=== PATIENT | female | born 1945 | race Caucasian/White ===

== ENCOUNTER 2017-11-28 09:41 | Inpatient (IN) | payer OTHER ==
[~2017-11-28] VITALS: Ht 160 cm; Wt 91.0 kg
[2017-11-28] MEDS ORDERED: ONDANSETRON INJ 2 MG/ML 2 ML VIAL IV STA (09:49)
[2017-11-28] MEDS ORDERED: HYDROmorphone INJ 1 MG/ML SYR IV STA (09:49)
[2017-11-28 09:56] LABS: HEMATOCRIT 38.2 % (37-47); HEMOGLOBIN 13.3 g/dL (12.0-16.0); MEAN CORPUSCULAR HEMOGLOBIN 30.6 pg (25-34); MEAN CORPUSCULAR HGB CONC 34.8 g/dl (32-36); MEAN PLATELET VOLUME 11.7 fL (7.4-10.4); PLATELET COUNT 146 K/uL (130-400); RED CELL DISTRIBUTION WIDTH CV 12.4 % (11.5-14.5); RED CELL DISTRIBUTION WIDTH SD 40.1 fL (36.4-46.3); WHITE BLOOD COUNT 6.22 K/uL (4.8-10.8)
[2017-11-28] MEDS ORDERED: HYDROmorphone INJ 0.5 MG/0.5 ML SYR ONE (09:56)
[2017-11-28 10:28] LABS: ALBUMIN 3.6 gm/dl (3.4-5.0); CALCIUM 9.4 mg/dl (8.5-10.1); CREATININE 0.98 mg/dl (0.60-1.20)
--- NOTE | 2017-11-28 10:36 | DIAGNOSTIC IMAGING REPORT ---
CT SCAN OF THE ABDOMEN AND PELVIS WITHOUT IV CONTRAST CLINICAL HISTORY: Right-sided abdominal pain. COMPARISON STUDY: No priors. TECHNIQUE: CT scan of the abdomen and pelvis is performed from the lung bases to the proximal femora. Images are reviewed in the axial, sagittal, and coronal planes. IV contrast was not administered for this examination. A dose lowering technique was utilized adhering to the principles of ALARA. CT DOSE: 1575.58 mGy.cm FINDINGS: Lung bases: The heart is normal in size and without pericardial effusion. The lung bases are clear noting dependent scarring/atelectasis. There is a small hiatal hernia. Liver: The unenhanced liver is cirrhotic in morphology and heterogeneous in attenuation. There is hypertrophy of the left lobe and caudate as well as nodularity of the hepatic surface contour. There is no intrahepatic biliary ductal dilatation. Gallbladder: Unremarkable. Spleen: Normal in size and attenuation. Pancreas: The unenhanced pancreas is atrophic and grossly unremarkable. Adrenal glands: Unremarkable. Kidneys: The unenhanced kidneys demonstrate cortical atrophy. There is a 5 mm obstructing calculus at the right vesicoureteral junction seen on image number #365. This causes moderate right hydroureteronephrosis. The right kidney is mildly edematous. There is associated right-sided perinephric and periureteric stranding as well as trace right-sided perinephric fluid. No additional calculi are identified in the right kidney. No left renal calculi are identified and there is no left-sided hydronephrosis. There is no evidence of contour deforming renal mass lesion. Abdominal vasculature: The abdominal aorta is normal in course and caliber noting advanced atherosclerotic calcification. Bowel: There is moderate sigmoid diverticulosis without CT evidence of acute diverticulitis. No bowel obstruction is seen. The appendix is not identified and reported surgically absent. Peritoneum: There is no intraperitoneal free air or abdominal ascites. A small volume of right-sided retroperitoneal fluid is noted and likely related to forniceal rupture. There is a small fat-containing umbilical hernia. Lymphadenopathy: None. Pelvic viscera: The bladder is normal as visualized. The uterus is surgically absent. No adnexal lesion is seen. Skeletal structures: The skeletal structures are osteopenic. There is moderate to advanced lumbosacral spondylosis and scoliosis. No lytic or blastic lesions are seen. IMPRESSION: 1. There is a 5 mm obstructing calculus at the right vesicoureteral junction. This causes moderate right-sided hydroureteronephrosis. 2. No additional calculi are identified in either kidney. 3. Cirrhotic liver morphology. 4. Retroperitoneal fluid is likely related to forniceal rupture. 5. Moderate sigmoid diverticulosis without CT evidence of acute diverticulitis. 6. Additional findings as above. Electronically signed by: Tato Jose M.D. 11/28/2017 10:34 AM Dictated Date/Time: 11/28/2017 10:27 AM
[2017-11-28] MEDS ORDERED: METO100T44 PO (10:53)
[2017-11-28] MEDS ORDERED: MELO-83 PO (10:53)
[2017-11-28] MEDS ORDERED: CHOL20007 PO (10:54)
[2017-11-28] MEDS ORDERED: SUMA100T16 PO (10:54)
[2017-11-28] MEDS ORDERED: AMT10 PO (10:54)
[2017-11-28] MEDS ORDERED: LUTE1CAP PO (10:54)
[2017-11-28] MEDS ORDERED: MECL-91 PO (10:54)
[2017-11-28] MEDS ORDERED: ASPI81TA28 PO (10:54)
[2017-11-28] MEDS ORDERED: AMLO-110 PO (10:54)
[2017-11-28] MEDS ORDERED: LSN/2025 PO (10:54)
[2017-11-28] MEDS ORDERED: OMEG10007 PO (10:54)
[2017-11-28] MEDS ORDERED: ASCO500T16 PO (10:54)
[2017-11-28] MEDS ORDERED: NXM/40 PO (10:54)
[2017-11-28] MEDS ORDERED: MULTCHW PO (10:54)
[2017-11-28] MEDS ORDERED: CALC600T PO (10:54)
[2017-11-28] MEDS ORDERED: PROCHLORPERAZINE 5 MG/ML 2 ML VIAL IV STA (11:07)
[2017-11-28] MEDS ORDERED: SODIUM CHLORIDE 0.9% 500ML 500 ML IV STA (11:07)
[2017-11-28] MEDS ORDERED: POTASSIUM CHLORIDE 10 MEQ / 100ML WTR IV STA (11:12)
[2017-11-28] MEDS ORDERED: POTASSIUM CHLORIDE 10 MEQ TABCR PO STA (12:57)
[2017-11-28] MEDS ORDERED: MoRPHine SULFATE 2 MG/ML CARP IV PRN (13:00)
[2017-11-28] MEDS ORDERED: ONDANSETRON INJ 2 MG/ML 2 ML VIAL IV PRN (13:00)
[2017-11-28] MEDS ORDERED: MECLIZINE HCL 25 MG TAB PO PRN (13:00)
[2017-11-28] MEDS ORDERED: SUMATRIPTAN SUCC TAB 100 MG TAB PO PRN (13:00)
[2017-11-28] MEDS ORDERED: TAMSULOSIN HCL 0.4 MG CAP PO ONE (13:00)
[2017-11-28] MEDS ORDERED: METOPROLOL SUCC 50MG EXT REL TAB PO STA (13:04)
[2017-11-28] MEDS ORDERED: AMLODIPINE BESYLATE 5 MG TAB PO ONE (13:15)
--- NOTE | 2017-11-28 13:15 | History and Physical ---
History & Physical Date & Time of Service: Nov 28, 2017 at 13:15 Chief Complaint: R-Flank Pain Primary Care Physician: Buck Contreras M.D. History of Present Illness Source: patient, family Patient is a 72 yr female with PMH of HTN, HLP, BPPV, Migraine GERD and other problems presents with history of right flank pain since 1 week duration which has become persistent and progressively worsened since this morning. She reports flank pain to be sharp, 10/10 intensity, radiates to right groin, associated with nausea, vomiting with no aggravating, relieving factors. Also reports that she could not pass urine while in ED and required straight catheterization. CT abdomen showed 5 mm obstructing calculus at the right vesicoureteral junction causing moderate right-sided hydroureteronephrosis. Denies any history of chest pain, SOB, dizziness, fever, chills, headache, hematuria, or history of having kidney stones in the past. Past Medical/Surgical History Medical Problems: (1) Renal colic on right side Past Surgical History: Hysterectomy Tonsillectomy Family History Father: CAD Social History Smoking Status: Never Smoker Alcohol Use: none Drug Use: none Allergies Coded Allergies: No Known Allergies (Unverified , 11/28/17) Home Medications Scheduled Amitriptyline HCl (Amitriptyline HCl), 1 TAB PO DAILY Amlodipine (Norvasc), 5 MG PO DAILY Ascorbic Acid (Ascorbic Acid), 500 MG PO DAILY Aspirin (Aspirin Ec), 81 MG PO DAILY Calcium Carbonate (Calcium 600), 2 TAB PO DAILY Cholecalciferol (Vitamin D3), 6,000 INTER.UNIT PO DAILY Esomeprazole Magnesium (Nexium), 40 MG PO DAILY Fish Oil ([place]-3), 1 CAP PO DAILY Hctz/Lisinopril (Zestoretic 20MG/25MG), 2 TAB PO DAILY Lutein-Zeaxanthin (Ocuvite Lutein 25 25-5 mg), 1 CAP PO DAILY Meloxicam (Meloxicam), 1 TAB PO DAILY Metoprolol Succ (Toprol Xl) (Toprol-Xl ), 100 MG PO DAILY Multiple Vitamins W/ Minerals (Centrum Silver), 1 TAB PO DAILY Sumatriptan Succinate (Imitrex), 100 MG PO PRN Scheduled PRN Meclizine HCl (Meclizine 25), 1 TAB PO UD PRN for Dizziness or Vertigo Review of Systems See HPI for pertinent positives & negatives. A total of 10 systems reviewed and were otherwise negative. Physical Exam Vital Signs Date Time Temp Pulse Resp B/P (MAP) Pulse Ox O2 Delivery O2 Flow Rate FiO2 11/28/17 11:30 75 17 152/69 97 Nasal Cannula 3.0 11/28/17 11:05 62 11/28/17 10:39 97 Nasal Cannula 3.0 11/28/17 10:37 62 22 174/91 86 Room Air 11/28/17 09:47 66 22 196/91 100 Room Air General Appearance: no apparent distress, + obese Head: normocephalic, atraumatic Eyes: normal inspection, PERRL, EOMI, sclerae normal ENT: normal ENT inspection, hearing grossly normal Neck: supple, trachea midline Respiratory/Chest: chest non-tender, lungs clear, normal breath sounds, no respiratory distress, no accessory muscle use Cardiovascular: regular rate, rhythm, no edema, no murmur Abdomen/GI: normal bowel sounds, soft, + tenderness (RLQ and groin), + pertinent finding (NO CVA tenderness) Back: normal inspection Extremities/Musculoskelatal: normal inspection, no pedal edema 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4 11.5-14.5 % Neutrophils % (Manual) 40.1 % Lymphocytes % (Manual) 31.6 % Variant Lymphocytes % (manual) 15.4 % Monocytes % (Manual) 12.0 % Eosinophils % (Manual) 0.9 % Neutrophils # (Manual) 2.49 1.4-6.5 K/uL Total Absolute Neutrophils 2.49 1.4-6.5 K/uL Lymphocytes # (Manual) 1.97 1.2-3.4 K/uL Absolute Variant Lymphocytes 0.96 K/uL Total Absolute Lymphocytes 2.92 1.2-3.4 K/uL Monocytes # (Manual) 0.75 0.11-0.59 K/uL Eosinophils # (Manual) 0.06 0-0.5 K/uL Red Blood Cell Morphology Unremarkable Sodium Level 141 136-145 mmol/L Potassium Level 3.0 3.5-5.1 mmol/L Chloride Level 105 98-107 mmol/L Carbon Dioxide Level 30 21-32 mmol/L Anion Gap 6.0 3-11 mmol/L Blood Urea Nitrogen 22 7-18 mg/dl Creatinine 0.98 0.60-1.20 mg/dl Est Creatinine Clear Calc Drug Dose 57.2 ml/min Estimated GFR () 67.7 Estimated GFR (Non- 58.4 BUN/Creatinine Ratio 22.0 10-20 Random Glucose 116 70-99 mg/dl Calcium Level 9.4 8.5-10.1 mg/dl Total Bilirubin 0.5 0.2-1 mg/dl Direct Bilirubin 0.1 0-0.2 mg/dl Aspartate Amino Transf (AST/SGOT) 55 15-37 U/L Alanine Aminotransferase (ALT/SGPT) 51 12-78 U/L Alkaline Phosphatase 87 45-117 U/L Total Protein 8.0 6.4-8.2 gm/dl Albumin 3.6 3.4-5.0 gm/dl Lipase 245 73-393 U/L Urine Color YELLOW Urine Appearance CLEAR CLEAR Urine pH >= 9.0 4.5-7.5 Urine Specific [place] 1.017 1.000-1.030 Urine Protein NEG NEG Urine Glucose (UA) NEG NEG Urine Ketones NEG NEG Urine Occult Blood NEG NEG Urine Nitrite NEG NEG Urine Bilirubin NEG NEG Urine Urobilinogen NEG NEG Urine Leukocyte Esterase TRACE NEG Urine WBC (Auto) 1-5 0-5 /hpf Urine RBC (Auto) 0-4 0-4 /hpf Urine Hyaline Casts (Auto) 1-5 0-5 /lpf Urine Epithelial Cells (Auto) 10-20 0-5 /lpf Urine Bacteria (Auto) NEG NEG Urine Renal Epithelial Cells 0-5 /lpf Microbiology Results 11/28/17 MRSA DNA Surveillance Screen, Received Pending 11/28/17 Urine Culture, Received Pending Diagnostic Radiology CT ABD: 1. There is a 5 mm obstructing calculus at the right vesicoureteral junction. This causes moderate right-sided hydroureteronephrosis. 2. No additional calculi are identified in either kidney. 3. Cirrhotic liver morphology. 4. Retroperitoneal fluid is likely related to forniceal rupture. 5. Moderate sigmoid diverticulosis without CT evidence of acute diverticulitis. 6. Additional findings as above. Impression Assessment and Plan Renal Colic: Obstructive Uropathy: CT abdomen showed: 5 mm obstructing calculus at the right vesicoureteral junction. moderate right-sided hydroureteronephrosis. No signs of Sepsis IV fluids UA normal, No indication for antibiotics Start on flomax Discussed with Urology: conservative management Consider Urology if necessary Strain Urine Bladder scan PRN Pain control Hypokalemia: Secondary to GI loses Replace and monitor HTN: Elevated 2/2 to pain and patient missed her meds today Resume home meds monitor BPPV: Meclizine PRN Migraine: Stable GERD: Continue PPI DVT Px: SCDs Code Status: Full Code Resuscitation Status VTE Prophylaxis Will order VTE Prophylaxis: Yes
[2017-11-28 13:30] VITALS: O2SAT 97; Ht 160 cm; Wt 91.0 kg
--- NOTE | 2017-11-28 13:38 | EMERGENCY ROOM VISIT NOTE ---
History Report prepared by Devin: Gregoria Thorne Under the Supervision of: Dr. Monster Adkins M.D. First contact with patient: 09:42 Chief Complaint: FLANK PAIN Stated Complaint: R-FLANK PAIN History of Present Illness The patient is a 72 year old female who presents to the Emergency Room with complaints of persistent right flank pain starting when she awoke this morning. She did not have any pain yesterday. She presents to the ED by EMS. She received morphine and Zofran in route to no significant relief. The pain started around her right waist and has moved into her right groin. She describes the pain as sharp. She denies any fever, vomiting, chest pain, SOB, problems urinating, hematuria, or diarrhea. She denies any history of kidney stones. She has been healthy up until today. Source of History: patient, family, nursing staff Onset: this morning Position: other (right flank) Symptom Intensity: severe Quality: sharp Timing: other (persistent) Associated Symptoms: No fevers, No chest pain, No SOB, No vomiting, No diarrhea, No urinary symptoms Note: Pt reports right groin pain. Review of Systems See HPI for pertinent positives & negatives. A total of 10 systems reviewed and were otherwise negative. Past Medical & Surgical Medical Problems: (1) Renal colic on right side No history of kidney stones. Family History No pertinent family history stated. Social History Marital Status: Occupation Status: retired Current/Historical Medications Scheduled Amitriptyline HCl (Amitriptyline HCl), 1 TAB PO DAILY Amlodipine (Norvasc), 5 MG PO DAILY Ascorbic Acid (Ascorbic Acid), 500 MG PO DAILY Aspirin (Aspirin Ec), 81 MG PO DAILY Calcium Carbonate (Calcium 600), 2 TAB PO DAILY Cholecalciferol (Vitamin D3), 6,000 INTER.UNIT PO DAILY Esomeprazole Magnesium (Nexium), 40 MG PO DAILY Fish Oil ([place]-3), 1 CAP PO DAILY Hctz/Lisinopril (Zestoretic 20MG/25MG), 2 TAB PO DAILY Lutein-Zeaxanthin (Ocuvite Lutein 25 25-5 mg), 1 CAP PO DAILY Meloxicam (Meloxicam), 1 TAB PO DAILY Metoprolol Succ (Toprol Xl) (Toprol-Xl ), 100 MG PO DAILY Multiple Vitamins W/ Minerals (Centrum Silver), 1 TAB PO DAILY Sumatriptan Succinate (Imitrex), 100 MG PO PRN Scheduled PRN Meclizine HCl (Meclizine 25), 1 TAB PO UD PRN for Dizziness or Vertigo Allergies Coded Allergies: No Known Allergies (Unverified , 11/28/17) Physical Exam Vital Signs Date Time Temp Pulse Resp B/P (MAP) Pulse Ox O2 Delivery O2 Flow Rate FiO2 11/28/17 11:30 75 17 152/69 97 Nasal Cannula 3.0 11/28/17 11:05 62 11/28/17 10:39 97 Nasal Cannula 3.0 11/28/17 10:37 62 22 174/91 86 Room Air 11/28/17 09:47 66 22 196/91 100 Room Air Physical Exam The patient is in obvious discomfort. Constitutional: Vital signs reviewed. Eyes: Pupils are equal round reactive to light. Conjunctiva are noninjected. ENT: Pharynx is clear without erythema or exudate. Mucous membranes are dry. Neck supple without meningeal signs. Respiratory: Clear to auscultation bilaterally. Breath sounds are equal bilaterally. Cardiovascular: Regular rate and rhythm. No rubs or gallops. GI: Soft, nondistended. Right sided abdominal tenderness. No guarding. Bowel sounds are present. Musculoskeletal: No peripheral edema. No lower extremity tenderness. Integumentary: No cyanosis. Neurological: The patient is awake and alert. No focal deficits. Psychiatric: Normal affect. Medical Decision & Procedures ER Provider Diagnostic Interpretation: Radiology results as stated below per my review and the radiologist's interpretation: CT SCAN OF THE ABDOMEN AND PELVIS WITHOUT IV CONTRAST CLINICAL HISTORY: Right-sided abdominal pain. COMPARISON STUDY: No priors. TECHNIQUE: CT scan of the abdomen and pelvis is performed from the lung bases to the proximal femora. Images are reviewed in the axial, sagittal, and coronal planes. IV contrast was not administered for this examination. A dose lowering technique was utilized adhering to the principles of ALARA. CT DOSE: 1575.58 mGy.cm FINDINGS: Lung bases: The heart is normal in size and without pericardial effusion. The lung bases are clear noting dependent scarring/atelectasis. There is a small hiatal hernia. Liver: The unenhanced liver is cirrhotic in morphology and heterogeneous in attenuation. There is hypertrophy of the left lobe and caudate as well as nodularity of the hepatic surface contour. There is no intrahepatic biliary ductal dilatation. Gallbladder: Unremarkable. Spleen: Normal in size and attenuation. Pancreas: The unenhanced pancreas is atrophic and grossly unremarkable. Adrenal glands: Unremarkable. Kidneys: The unenhanced kidneys demonstrate cortical atrophy. There is a 5 mm obstructing calculus at the right vesicoureteral junction seen on image number #365. This causes moderate right hydroureteronephrosis. The right kidney is mildly edematous. There is associated right-sided perinephric and periureteric stranding as well as trace right-sided perinephric fluid. No additional calculi are identified in the right kidney. No left renal calculi are identified and there is no left-sided hydronephrosis. There is no evidence of contour deforming renal mass lesion. Abdominal vasculature: The abdominal aorta is normal in course and caliber noting advanced atherosclerotic calcification. Bowel: There is moderate sigmoid diverticulosis without CT evidence of acute diverticulitis. No bowel obstruction is seen. The appendix is not identified and reported surgically absent. Peritoneum: There is no intraperitoneal free air or abdominal ascites. A small volume of right-sided retroperitoneal fluid is noted and likely related to forniceal rupture. There is a small fat-containing umbilical hernia. Lymphadenopathy: None. Pelvic viscera: The bladder is normal as visualized. The uterus is surgically absent. No adnexal lesion is seen. Skeletal structures: The skeletal structures are osteopenic. There is moderate to advanced lumbosacral spondylosis and scoliosis. No lytic or blastic lesions are seen. IMPRESSION: 1. There is a 5 mm obstructing calculus at the right vesicoureteral junction. This causes moderate right-sided hydroureteronephrosis. 2. No additional calculi are identified in either kidney. 3. Cirrhotic liver morphology. 4. Retroperitoneal fluid is likely related to forniceal rupture. 5. Moderate sigmoid diverticulosis without CT evidence of acute diverticulitis. 6. Additional findings as above. Electronically signed by: Tato Jose M.D. 11/28/2017 10:34 AM Dictated Date/Time: 11/28/2017 10:27 AM Laboratory Results 11/28/17 09:30 Red Blood Count 4.34, Mean Corpuscular Volume 88.0, Mean Corpuscular Hemoglobin 30.6, Mean Corpuscular Hemoglobin Concent 34.8, Mean Platelet Volume 11.7 11/28/17 09:30 Test 11/28/17 09:30 11/28/17 11:20 White Blood Count 6.22 K/uL (4.8-10.8) Red Blood Count 4.34 M/uL (4.2-5.4) Hemoglobin 13.3 g/dL (12.0-16.0) Hematocrit 38.2 % (37-47) Mean Corpuscular Volume 88.0 fL (80-100) Mean Corpuscular Hemoglobin 30.6 pg (25-34) Mean Corpuscular Hemoglobin Concent 34.8 g/dl (32-36) Platelet Count 146 K/uL (130-400) Mean Platelet Volume 11.7 fL (7.4-10.4) RDW Standard Deviation 40.1 fL (36.4-46.3) RDW Coefficient of Variation 12.4 % (11.5-14.5) Neutrophils % (Manual) 40.1 % Lymphocytes % (Manual) 31.6 % Variant Lymphocytes % (manual) 15.4 % Monocytes % (Manual) 12.0 % Eosinophils % (Manual) 0.9 % Neutrophils # (Manual) 2.49 K/uL (1.4-6.5) Total Absolute Neutrophils 2.49 K/uL (1.4-6.5) Lymphocytes # (Manual) 1.97 K/uL (1.2-3.4) Absolute Variant Lymphocytes 0.96 K/uL Total Absolute Lymphocytes 2.92 K/uL (1.2-3.4) Monocytes # (Manual) 0.75 K/uL (0.11-0.59) Eosinophils # (Manual) 0.06 K/uL (0-0.5) Red Blood Cell Morphology Unremarkable Anion Gap 6.0 mmol/L (3-11) Est Creatinine Clear Calc Drug Dose 57.2 ml/min Estimated GFR () 67.7 Estimated GFR (Non- 58.4 BUN/Creatinine Ratio 22.0 (10-20) Calcium Level 9.4 mg/dl (8.5-10.1) Total Bilirubin 0.5 mg/dl (0.2-1) Direct Bilirubin 0.1 mg/dl (0-0.2) Aspartate Amino Transf (AST/SGOT) 55 U/L (15-37) Alanine Aminotransferase (ALT/SGPT) 51 U/L (12-78) Alkaline Phosphatase 87 U/L (45-117) Total Protein 8.0 gm/dl (6.4-8.2) Albumin 3.6 gm/dl (3.4-5.0) Lipase 245 U/L (73-393) Urine Color YELLOW Urine Appearance CLEAR (CLEAR) Urine pH >= 9.0 (4.5-7.5) Urine Specific [place] 1.017 (1.000-1.030) Urine Protein NEG (NEG) Urine Glucose (UA) NEG (NEG) Urine Ketones NEG (NEG) Urine Occult Blood NEG (NEG) Urine Nitrite NEG (NEG) Urine Bilirubin NEG (NEG) Urine Urobilinogen NEG (NEG) Urine Leukocyte Esterase TRACE (NEG) Urine WBC (Auto) 1-5 /hpf (0-5) Urine RBC (Auto) 0-4 /hpf (0-4) Urine Hyaline Casts (Auto) 1-5 /lpf (0-5) Urine Epithelial Cells (Auto) 10-20 /lpf (0-5) Urine Bacteria (Auto) NEG (NEG) Urine Renal Epithelial Cells /lpf (0-5) Laboratory results as reviewed by me. Medications Administered Medications (Trade) Dose Ordered Sig/Isabel Route Start Time Stop Time Status Last Admin Dose Admin Ondansetron HCl (Zofran Inj) 4 mg NOW STAT IV 11/28/17 09:49 11/28/17 09:50 DC 11/28/17 09:58 4 MG Hydromorphone HCl (Dilaudid Inj) 0.5 mg STK-MED ONCE .ROUTE 11/28/17 09:56 11/28/17 09:57 DC 11/28/17 09:59 0.5 MG Prochlorperazine Edisylate (Compazine Inj) 5 mg NOW STAT IV 11/28/17 11:07 11/28/17 11:10 DC 11/28/17 11:27 5 MG Sodium Chloride 500 ml @ 999 mls/hr Q31M STAT IV 11/28/17 11:07 11/28/17 11:37 DC 11/28/17 11:29 999 MLS/HR Potassium Chloride (Kcl 10 Meq / Wtr) 10 meq NOW STAT IV 11/28/17 11:12 11/28/17 11:13 DC 11/28/17 11:29 10 MEQ Tamsulosin HCl (Flomax Cap) 0.4 mg NOW ONCE PO 11/28/17 13:00 11/28/17 13:14 DC 11/28/17 13:32 0.4 MG Metoprolol Succinate (Toprol Xl Tab) 100 mg NOW STAT PO 11/28/17 13:04 11/28/17 13:14 DC 11/28/17 13:32 100 MG Amlodipine Besylate (Norvasc Tab) 5 mg NOW ONCE PO 11/28/17 13:15 11/28/17 13:16 DC 11/28/17 13:32 5 MG ED Course 0945: The patient was evaluated in room A3. A complete history and physical exam was performed. 0949: Dilaudid Inj 0.5 mg IV, Zofran Inj 4 mg IV. 1104: I reevaluated the patient. She said that she is feeling better, but then vomited. She agreed to a urine cath. 1107: NSS 500 ml @ 999 mls/hr IV, Compazine Inj 5 mg IV. 1112: Potassium Chloride 10 meq IV. 1134: I reevaluated the patient. She is feeling better. 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 I discussed the results with her. She verbalized agreement of the treatment plan. She will be evaluated for further management. 1229: I spoke with Dr. Castaneda of [facility] Hospitalist service. We discussed the patient and her results. The patient will be further evaluated by him. Medical Decision This is a 72-year-old female presents with right-sided flank pain. Differential diagnosis includes renal colic, obstructive uropathy, UTI, pyelonephritis, appendicitis. I did perform a limited focused review of portions of the patient's old chart on the electronic medical record. The patient has had no recent pertinent visits to this hospital. I did evaluate the patient as noted above. I did treat the patient with Dilaudid 0.5 mg IV and Zofran 4 mg IV. She had received morphine and Zofran prior to arrival without any significant relief. I did order and personally review the patient's urinalysis as described above. I did order and review the patient's blood work as noted in the electronic medical record. She has hypokalemia. I did treat her with KCl IV. She is unable to tolerate p.o. She did vomit again and so I did give her Compazine IV. I did order a CT of the abdomen and pelvis. I did review the images myself as well as the radiology report as described above. She does have a right obstructive stone with signs of forniceal rupture. I did discuss the test results with the patient and her family. She is feeling better at this time. I did recommend hospitalization for further care and evaluation. I did discuss case with the hospitalist and case loader operator. Medication Reconcilliation Current Medication List: was personally reviewed by me Blood Pressure Screening Patient's blood pressure: Elevated blood pressure Blood pressure disposition: Referred to PCP Consults Time Called: 1228 Consulting Physician: Dr. Castaneda [facility] hospitalist Returned Call: 1229 I spoke with him. We discussed the patient and her results. The patient will be further evaluated by him. Impression Primary Impression: Renal colic Additional Impressions: Intractable vomiting Obstructive uropathy Scribe Attestation The scribe's documentation has been prepared under my direct and personally reviewed by me in its entirety. I confirm that the note above accurately reflects all work, treatment, procedures, and medical decision making performed by me. Departure Information Dispostion Being Evaluated By Hospitalist Patient Instructions My [facility] Problem Qualifiers Additional Impressions: Intractable vomiting Vomiting type: unspecified Nausea presence: with nausea Qualified Codes: R11.2 - Nausea with vomiting, unspecified
[2017-11-28] MEDS ORDERED: NSS + 20MEQ KCL 1000ML 1,000 ML IV SCH (14:30)
[2017-11-28] MEDS ORDERED: IV FLUIDS COMPLETED PRN (14:30)
[2017-11-28 14:40] VITALS: BP 127/74; PULSE 61; TEMP 36.3; O2SAT 95
[2017-11-28] MEDS: ACETAMINOPHEN 325 MG TAB PO PRN (21:55)
[2017-11-28] MEDS ORDERED: NURSING VERBAL MED ORDER ONE (22:00)
[2017-11-28] MEDS ORDERED: AMITRIPTYLINE HCL 10 MG TAB PO SCH (22:30)
[2017-11-28 23:11] VITALS: BP 121/71; PULSE 69; TEMP 36.9; O2SAT 93
[2017-11-28 23:30] VITALS: O2SAT 93
[2017-11-29 07:02] LABS: HEMATOCRIT 35.9 % (37-47); HEMOGLOBIN 11.7 g/dL (12.0-16.0); MEAN CELL VOLUME 89.8 fL (80-100); MEAN CORPUSCULAR HEMOGLOBIN 29.3 pg (25-34); MEAN CORPUSCULAR HGB CONC 32.6 g/dl (32-36); MEAN PLATELET VOLUME 11.6 fL (7.4-10.4); PLATELET COUNT 117 K/uL (130-400); RED CELL DISTRIBUTION WIDTH CV 12.9 % (11.5-14.5); RED CELL DISTRIBUTION WIDTH SD 42.7 fL (36.4-46.3); WHITE BLOOD COUNT 5.34 K/uL (4.8-10.8)
[2017-11-29 07:03] VITALS: BP 115/74; PULSE 65; TEMP 36.6; O2SAT 95
[2017-11-29] MEDS: ACETAMINOPHEN 325 MG TAB PO PRN ×2 (07:07→14:21)
[2017-11-29 07:34] LABS: CALCIUM 8.6 mg/dl (8.5-10.1); CREATININE 0.87 mg/dl (0.60-1.20); POTASSIUM 4.1 mmol/L (3.5-5.1)
[2017-11-29] MEDS ORDERED: METOPROLOL SUCC 50MG EXT REL TAB PO SCH (09:00)
[2017-11-29] MEDS ORDERED: AMLODIPINE BESYLATE 5 MG TAB PO SCH (09:00)
[2017-11-29] MEDS ORDERED: AMITRIPTYLINE HCL 10 MG TAB PO SCH (09:00)
[2017-11-29] MEDS ORDERED: LISINOPRIL 20 MG TAB PO SCH (09:00)
[2017-11-29] MEDS ORDERED: TAMSULOSIN HCL 0.4 MG CAP PO SCH (09:00)
[2017-11-29] MEDS ORDERED: PANTOprazole SOD 40 MG TAB PO SCH (09:00)
[2017-11-29 10:09] VITALS: O2SAT 95
[2017-11-29] MEDS ORDERED: NURSING VERBAL MED ORDER ONE (10:45)
[2017-11-29 14:00] VITALS: BP 115/74; PULSE 65; TEMP 36.6; O2SAT 95
--- NOTE | 2017-11-29 14:00 | Discharge Instructions ---
Discharge Instructions Date of Service Nov 29, 2017. Admission Reason for Admission: Renal Colic On Right Side Discharge Discharge Diagnosis / Problem: right renal colic-resolved Discharge Goals Goal(s): Decrease discomfort, Improve function Activity Recommendations Activity Limitations: resume your previous activity . Instructions / Follow-Up Instructions / Follow-Up FOLLOWUP WITH FAMILY DOCTOR ON November AT 10:45AM UROLOGY REFERRAL PER FAMILY DOCTOR. PLEASE AVOID MELOXICAM OR ANY OTHER NSAID'S LIKE IBUPROFEN, ALEVE OR MOTRIN FOR CUSTODIAL USE THEY CAN CAUSE GASTRIC ULCERS, KIDNEY FAILURE OR HEART ATTACKS Current Hospital Diet Patient's current hospital diet: AHA Diet (Heart Healthy) Discharge Diet Recommended Diet: AHA Diet (Heart Healthy) Pending Studies Studies pending at discharge: yes List of pending studies: [facility] ANALYSIS Medical Emergencies . Who to Call and When: Medical Emergencies: If at any time you feel your situation is an emergency, please call 911 immediately. . Non-Emergent Contact Non-Emergency issues call your: Primary Care Provider . . "Provider Documentation" section prepared by [employer]. .
--- NOTE | 2017-11-29 14:34 | Progress Note ---
Internal Med Progress Note Date of Service: Nov 29, 2017. Provider Documentation: SUBJECTIVE: passed renal stone yesterday denies any pain no hematuria no fevers no chest pain or sob or nausea ok for discharge OBJECTIVE: Vital Signs-as noted below Exam: General-alert and oriented. ENT-Normal hearing Neck-no neck masses Lungs-cta b/l no wheezing no crackles present Heart-S1 and S2 heard regular rate and rhythm no murmurs Abdomen-Soft bowel sounds present non tender no distension Extremities-no edema no erythema Neuro-alert and awake moves extremities Lab data as noted below. ASSESSMENT & PLAN: Renal Colic: Obstructive Uropathy: CT abdomen showed: 5 mm obstructing calculus at the right vesicoureteral junction. moderate right-sided hydroureteronephrosis. Start on flomax Admitting doctor Discussed with Urology: conservative management patient passed stone and it was sent for analysis currently asymptomatic d/c to followup with pcp urology referral as per pcp Hypokalemia: replacesd HTN: home meds stable BPPV: Meclizine PRN Migraine: Stable GERD: Continue PPI discharged home Vital Signs: Date Time Temp Pulse Resp B/P (MAP) Pulse Ox O2 Delivery O2 Flow Rate FiO2 11/29/17 14:00 36.6 65 17 95 Room Air 11/29/17 10:09 95 Room Air 11/29/17 07:30 Room Air 11/29/17 07:03 36.6 65 17 115/74 (88) 95 Room Air 11/28/17 23:30 93 Room Air 3.0 11/28/17 23:11 36.9 69 16 121/71 (88) 93 Room Air 11/28/17 15:30 Room Air 11/28/17 14:40 36.3 61 18 127/74 (91) 95 Room Air Lab Results: Results Past 24 Hours Test 11/29/17 05:57 Range/Units White Blood Count 5.34 4.8-10.8 K/uL Red Blood Count 4.00 4.2-5.4 M/uL Hemoglobin 11.7 12.0-16.0 g/dL Hematocrit 35.9 37-47 % Mean Corpuscular Volume 89.8 80-100 fL Mean Corpuscular Hemoglobin 29.3 25-34 pg Mean Corpuscular Hemoglobin Concent 32.6 32-36 g/dl RDW Standard Deviation 42.7 36.4-46.3 fL RDW Coefficient of Variation 12.9 11.5-14.5 % Platelet Count 117 130-400 K/uL Mean Platelet Volume 11.6 7.4-10.4 fL Sodium Level 139 136-145 mmol/L Potassium Level 4.1 3.5-5.1 mmol/L Chloride Level 105 98-107 mmol/L Carbon Dioxide Level 28 21-32 mmol/L Anion Gap 6.0 3-11 mmol/L Blood Urea Nitrogen 20 7-18 mg/dl Creatinine 0.87 0.60-1.20 mg/dl Est Creatinine Clear Calc Drug Dose 64.4 ml/min Estimated GFR () 78.2 Estimated GFR (Non- 67.5 BUN/Creatinine Ratio 23.5 10-20 Random Glucose 88 70-99 mg/dl Calcium Level 8.6 8.5-10.1 mg/dl Magnesium Level 1.6 1.8-2.4 mg/dl
--- NOTE | 2017-11-29 14:57 | Discharge Summary ---
Discharge Summary Date of Service Nov 29, 2017. Discharge Summary Admission Date: Nov 28, 2017 at 12:59 Discharge Date: Nov 29, 2017 Discharge Disposition: Home Principal Diagnosis: RIGHT RENAL COLIC RESOLVED Secondary Diagnoses/Problems: (1) Renal colic on right side Procedures: CT ABD/PELVIS: 1. There is a 5 mm obstructing calculus at the right vesicoureteral junction. This causes moderate right-sided hydroureteronephrosis. 2. No additional calculi are identified in either kidney. 3. Cirrhotic liver morphology. 4. Retroperitoneal fluid is likely related to forniceal rupture. 5. Moderate sigmoid diverticulosis without CT evidence of acute diverticulitis. Medication Reconciliation Continued Medications: Amitriptyline HCl (Amitriptyline HCl) 10 Mg Tab 1 TAB PO DAILY Amlodipine (Norvasc) 5 Mg Tab 5 MG PO DAILY, TAB Ascorbic Acid (Ascorbic Acid) 500 Mg Tab 500 MG PO DAILY, TAB Aspirin (Aspirin Ec) 81 Mg Tab 81 MG PO DAILY Calcium Carbonate (Calcium 600) 600 Mg Tab 2 TAB PO DAILY Cholecalciferol (Vitamin D3) 2,000 Unit Tab 6000 INTER.UNIT PO DAILY, TAB Esomeprazole Magnesium (Nexium) 40 Mg Capcr 40 MG PO DAILY, CAP Fish Oil ([place]-3) 1 Ea Cap 1 CAP PO DAILY, CAP Hctz/Lisinopril (Zestoretic 20MG/25MG) 1 Ea Tab 2 TAB PO DAILY, TAB Lutein-Zeaxanthin (Ocuvite Lutein 25 25-5 mg) 1 Cap Cap 1 CAP PO DAILY Meclizine HCl (Meclizine 25) 25 Mg Tab 1 TAB PO UD PRN for Dizziness or Vertigo Meloxicam (Meloxicam) 15 Mg Tab 1 TAB PO DAILY Metoprolol Succ (Toprol Xl) (Toprol-Xl ) 100 Mg Tabcr 100 MG PO DAILY, TAB Multiple Vitamins W/ Minerals (Centrum Silver) 1 Chw Chw 1 TAB PO DAILY Sumatriptan Succinate (Imitrex) 100 Mg Tab 100 MG PO PRN, TAB Admission Information HPI (per Admitting provider): Patient is a 72 yr female with PMH of HTN, HLP, BPPV, Migraine GERD and other problems presents with history of right flank pain since 1 week duration which has become persistent and progressively worsened since this morning. She reports flank pain to be sharp, 10/10 intensity, radiates to right groin, associated with nausea, vomiting with no aggravating, relieving factors. Also reports that she could not pass urine while in ED and required straight catheterization. CT abdomen showed 5 mm obstructing calculus at the right vesicoureteral junction causing moderate right-sided hydroureteronephrosis. Denies any history of chest pain, SOB, dizziness, fever, chills, headache, hematuria, or history of having kidney stones in the past. Physical Exam (per Admitting): General Appearance: no apparent distress, + obese Head: normocephalic, atraumatic Eyes: normal inspection, PERRL, EOMI, sclerae normal ENT: normal ENT inspection, hearing grossly normal Neck: supple, trachea midline Respiratory/Chest: chest non-tender, lungs clear, normal breath sounds, no respiratory distress, no accessory muscle use Cardiovascular: regular rate, rhythm, no edema, no murmur Abdomen/GI: normal bowel sounds, soft, + tenderness (RLQ and groin), + pertinent finding (NO CVA tenderness) Back: normal inspection Extremities/Musculoskelatal: normal inspection, no pedal edema Neurologic/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 moderate right-sided hydroureteronephrosis. Start on flomax Admitting doctor Discussed with Urology: conservative management patient passed stone and it was sent for analysis currently asymptomatic d/c to followup with pcp urology referral as per pcp Hypokalemia: replacesd HTN: home meds stable BPPV: Meclizine PRN Migraine: Stable GERD: Continue PPI discharged home Total time spent on discharge = 35MINUTES This includes examination of the patient, discharge planning, medication reconciliation, and communication with other providers. Discharge Instructions Discharge Instructions Date of Service Nov 29, 2017. Admission Reason for Admission: Renal Colic On Right Side Discharge Discharge Diagnosis / Problem: right renal colic-resolved Discharge Goals Goal(s): Decrease discomfort, Improve function Activity Recommendations Activity Limitations: resume your previous activity . Instructions / Follow-Up Instructions / Follow-Up FOLLOWUP WITH FAMILY DOCTOR ON [address] AT 10:45AM UROLOGY REFERRAL PER FAMILY DOCTOR. PLEASE AVOID MELOXICAM OR ANY OTHER NSAID'S LIKE IBUPROFEN, ALEVE OR MOTRIN FOR INTERMEDIATE USE THEY CAN CAUSE GASTRIC ULCERS, KIDNEY FAILURE OR HEART ATTACKS Current Hospital Diet Patient's current hospital diet: AHA Diet (Heart Healthy) Discharge Diet Recommended Diet: AHA Diet (Heart Healthy) Pending Studies Studies pending at discharge: yes List of pending studies: STONE ANALYSIS Medical Emergencies . Who to Call and When: Medical Emergencies: If at any time you feel your situation is an emergency, please call 911 immediately. . Non-Emergent Contact Non-Emergency issues call your: Primary Care Provider . . "Provider Documentation" section prepared by [employer]. . Additional Copies To Buck Contreras M.D.
== END 2017-11-29 14:48 | disposition home or self-care (01) | DRG 694 ==
LOC: EDBD 09:41 → C.EDA 09:42 → C.MSW 12:59 → ENRESERV 13:13
PROVIDERS: ADMIT Internal Medicine; ATTEND Internal Medicine
DX: N13.2 Hydronephrosis with renal and ureteral calculous obstruction (principal); I10 Essential (primary) hypertension; E78.5 Hyperlipidemia, unspecified; H81.10 Benign paroxysmal vertigo, unspecified ear; K21.9 Gastro-esophageal reflux disease without esophagitis; G43.909 Migraine, unspecified, not intractable, without status migrainosus; Z82.49 Family history of ischemic heart disease and other diseases of the circulatory system; Z79.82 Long term (current) use of aspirin

== ENCOUNTER 2019-03-21 08:18 | Inpatient (IN) ==
--- NOTE | 2019-03-10 09:05 | PAT Medication Instructions ---
Medication Instructions Date of Service March 10, 2019 Home Medications amitriptyline 25 mg PO HS amlodipine 5 mg PO QAM ascorbic acid (vitamin C) [Vitamin C] 1 g PO DAILY calcium carbonate-vitamin D3 [Calcium 600 + D(3)] 1 cap PO BID cholecalciferol (vitamin D3) [Vitamin D3] 2,000 unit PO QAM cyanocobalamin (vitamin B-12) [Vitamin B-12] 1,000 mcg PO DAILY esomeprazole magnesium [Nexium] 40 mg PO QAM lisinopril-hydrochlorothiazide [Zestoretic] 2 tab PO QAM lutein-zeaxanthin 1 cap PO DAILY meclizine 25 mg PO DAILY PRN meloxicam 15 mg PO QAM metoprolol succinate [Toprol XL] 100 mg PO QAM multivitamin 1 tab PO DAILY sumatriptan succinate [Imitrex] 50 mg PO DAILY PRN turmeric root extract 2,000 mg PO HS ASK your prescriber and surgeon meloxicam 15 mg PO QAM STOP taking 2 weeks before surgery (or as soon as possible if surgery is within 2 weeks) lutein-zeaxanthin 1 cap PO DAILY turmeric root extract 2,000 mg PO HS DO NOT take the morning of surgery ascorbic acid (vitamin C) [Vitamin C] 1 g PO DAILY calcium carbonate-vitamin D3 [Calcium 600 + D(3)] 1 cap PO BID cholecalciferol (vitamin D3) [Vitamin D3] 2,000 unit PO QAM cyanocobalamin (vitamin B-12) [Vitamin B-12] 1,000 mcg PO DAILY lisinopril-hydrochlorothiazide [Zestoretic] 2 tab PO QAM multivitamin 1 tab PO DAILY Take morning of surgery With a small sip of water, OTHERWISE NOTHING TO EAT OR DRINK AFTER MIDNIGHT: amlodipine 5 mg PO QAM esomeprazole magnesium [Nexium] 40 mg PO QAM meclizine 25 mg PO DAILY PRN (if needed) metoprolol succinate [Toprol XL] 100 mg PO QAM sumatriptan succinate [Imitrex] 50 mg PO DAILY PRN (if needed) Take evening before surgery amitriptyline 25 mg PO HS calcium carbonate-vitamin D3 [Calcium 600 + D(3)] 1 cap PO BID meclizine 25 mg PO DAILY PRN (if needed) Other Notes If you have any questions please call us at [phone] or [phone] or [phone] or [phone]
--- NOTE | 2019-03-10 14:47 | Anesthesiology Consultation ---
Date of Service March 10, 2019 Assessment & Plan (1) Encounter for pre-operative examination: Chart Review Chart Review: Acceptable Risk for Surgery and Patient seen in Pre Admission Testing Teaching & Discussion Pre-Anesthesia Teaching/Discussion Notes: Instructed NPO after midnight before surgery,except medications with 15 cc of water. Medication instructions provided according to the PAT guidelines. History Surgery Operation Date: 03/21/19 12:30 Proposed Procedures p Left Total Knee Arthroplasty - Rodolfo Cosby MD Height/Weight Height: 5 ft 2 in Weight: 99.2 kg Allergies Allergy/AdvReac Type Severity Reaction Status Date / Time No Known Allergies Allergy Unverified 03/09/19 11:42 Medications Home Medications Medication Instructions Recorded Confirmed Last Taken amitriptyline 25 mg PO HS 03/09/19 03/09/19 Unknown amlodipine 5 mg PO QAM 03/09/19 03/09/19 Unknown ascorbic acid (vitamin C) [Vitamin 1 g PO DAILY 03/09/19 03/09/19 Unknown C] calcium carbonate-vitamin D3 1 cap PO BID 03/09/19 03/09/19 Unknown [Calcium 600 + D(3)] cholecalciferol (vitamin D3) 2,000 unit PO QAM 03/09/19 03/09/19 Unknown [Vitamin D3] cyanocobalamin (vitamin B-12) 1,000 mcg PO DAILY 03/09/19 03/09/19 Unknown [Vitamin B-12] esomeprazole magnesium [Nexium] 40 mg PO QAM 03/09/19 03/09/19 Unknown lisinopril-hydrochlorothiazide 2 tab PO QAM 03/09/19 03/09/19 Unknown [Zestoretic] lutein-zeaxanthin 1 cap PO DAILY 03/09/19 03/09/19 Unknown meclizine 25 mg PO DAILY PRN 03/09/19 03/09/19 Unknown meloxicam 15 mg PO QAM 03/09/19 03/09/19 Unknown metoprolol succinate [Toprol XL] 100 mg PO QAM 03/09/19 03/09/19 Unknown multivitamin 1 tab PO DAILY 03/09/19 03/09/19 Unknown sumatriptan succinate [Imitrex] 50 mg PO DAILY PRN 03/09/19 03/09/19 Unknown turmeric root extract 2,000 mg PO HS 03/09/19 03/09/19 Unknown Past Medical History Medical History Chronic back pain Fatty liver disease, nonalcoholic GERD (gastroesophageal reflux disease) controlled Hypertension Kidney stones Migraine Obesity Osteoarthritis Scoliosis Thrombocytopenia chronic; platelets baseline low 100's per chart review Exercise / Class Metabolic Activity III < 4 Walking/Shop/Light housework Past Family History Family History Mother Cervical cancer Family history of diabetes mellitus, Onset Age: 80 Brother Family history of esophageal cancer, Onset Age: 61 Past Surgical History Surgical History History of colonoscopy History of esophagogastroduodenoscopy (EGD) History of tonsillectomy S/P PITO-BSO S/P epidural steroid injection s/p right sacroiliac injection (03/07/19) Past Anesthesia History No Hx of Anesthesia Complications and No Family Hx of Anesthesia Complications History of PONV No Hx of PONV and Hx of Motion Sickness Social History Smoking Status: Never smoker Do You Dip or Chew Tobacco: No Hx Alcohol Use: Yes Alcohol type: wine alcohol intake frequency: holidays/special occasions only Hx Substance Use: No substance use type: does not use Review of Systems Patient denies chest pain, shortness of breath, cough, wheezing, palpitations. Physical Exam Vital Signs VITALS BP 116/72 P 60 TEMP 97.9 SP02 95%RA RESP 18 PHYSICAL Full neck and c-spine range of motion. Full TMJ range of motion. TMD 3 finger breaths Mallampati Score 2 Dentition: upper front veneers, cracked molar Lungs: clear throughout to auscultation Cardiac: regular rate and rhythm, I-II/ systolic murmur Spine: normal Carotid arteries: negative bruit Extremities: no edema Testing Laboratory Results 03/10/19 15:09 03/10/19 15:09 PT 11.0 Seconds (9.0-12.0) 03/10/19 15:09 INR 1.1 (0.9-1.1) 03/10/19 15:09 APTT 24.5 Seconds (21.0-31.0) 03/10/19 15:09 Blood Type A Positive 03/10/19 15:09 Antibody Screen NEGATIVE 03/10/19 15:09 Electrocardiogram Date: 03/10/19 Findings: + NSR @ (60) Chest X-Ray Date: 03/10/19 Incidental note is made of moderate levoscoliosis of the lower thoracic and upper lumbar spine. Linear left lung opacity reflects atelectasis or scarring. Stress Test Date: 07/16/15 Type: DSE Stress ECHO negative for inducible ischemia. LVEF 55-59%. Stress EKG showed no evidence of ischemia. No arrhythmias with stress. Q-waves noted in inferior leads at rest. 85% MPHR. Mildly increased cLV wall thickness. Mild LAE. No significant valvular disease.
--- NOTE | 2019-03-10 15:35 | XRay Report ---
XR chest Pre-admission PA/Lat CLINICAL HISTORY: Preoperative evaluation. COMPARISON STUDY: No previous studies for comparison. FINDINGS: Lung volumes are normal. Lungs are clear. There is no pneumothorax or pleural effusion. Car diac size is normal. Mediastinal contours are normal. There is no evidence for pulmonary edema. Incid ental note is made of moderate levoscoliosis of the lower thoracic and upper lumbar spine. Linear lef t lung opacity reflects atelectasis or scarring. IMPRESSION: No acute cardiopulmonary findings. Electronically signed by: Ketan Mejía M.D. 03/10/2019 3:33 PM
[2019-03-10 16:08] LABS: BUN Creatinine Ratio 27.7 (10-20); Calcium 9.8 mg/dl (8.5-10.1); Creatinine Clr Calc Pharmacy 52.6 ml/min; Est GFR (African American) 59.8; Est GFR (Non-African American) 51.6; Potassium 4.3 mmol/L (3.5-5.1)
[2019-03-10 16:10] LABS: INR 1.1 (0.9-1.1); Partial Thromboplastin Ratio 0.9; Partial Thromboplastin Time 24.5 Seconds (21.0-31.0)
[2019-03-10 16:33] LABS: Hematocrit (blood only) 41.7 % (37-47); Hemoglobin 14.2 g/dL (12.0-16.0); Mean Corpuscular Hgb Conc 34.1 g/dL (32-36); Mean Corpuscular Volume 92.7 fL (80-100); RDW Standard Deviation 47.2 fL (36.4-46.3); White Blood Count 7.68 K/uL (4.8-10.8)
[2019-03-10 16:35] LABS: Basophils # (auto) 0.01 K/uL (0-0.2); Basophils % (auto) 0.1 %; Eosinophils # (auto) 0.07 K/uL (0-0.5); Eosinophils % (auto) 0.9 %; Immature Granulocytes # (auto) 0.03 K/uL (0.00-0.02); Immature Granulocytes % (auto) 0.4 %; Lymphocytes # (auto) 2.49 K/uL (1.2-3.4); Lymphocytes % (auto) 32.4 %; Mean Platelet Volume 12.6 fL (7.4-10.4); Monocytes # (auto) 1.23 K/uL (0.11-0.59); Neutrophils # (auto) 3.85 K/uL (1.4-6.5); Neutrophils % (auto) 50.2 %; Platelet Count 110 K/uL (130-400); Platelet Estimate Decreased (Normal)
--- NOTE | 2019-03-18 11:10 | History and Physical Report ---
DATE OF ADMISSION: 03/21/2019 CHIEF COMPLAINT: Persistent left knee pain and discomfort. HISTORY OF PRESENT ILLNESS: A 73-year-old white female who presents for surgical treatment of her left knee. She has a 6-year history of left, primarily lateral sided knee pain and discomfort. We have been treating her with several injections which helped her initially, but became less successful over time. Pain is mostly lateral. It increases with weightbearing. The more she walks, the more it hurts. She limps more as the day goes on. She has nighttime pain. She would like to have her left knee fixed. PAST MEDICAL HISTORY: 1. Hypertension. 2. Significant scoliosis followed by Dr. Philip. 3. Gastroesophageal reflux disease. 4. Obesity with BMI of 40. PAST SURGICAL HISTORY: Previous surgeries include: 1. Hysterectomy. 2. Oophorectomy. 3. T and A. ALLERGIES: NKDA CURRENT MEDICINES: Include: 1. Meloxicam 15 mg a day. 2. Toprol-XL 100 mg. 3. Zestoretic 2 tablets a day. 4. Nexium 40 mg. 5. Amlodipine 5 mg a day. 6. Amitriptyline 25 mg at bedtime. 7. Vitamin D3. 8. Lutein. 9. Vitamin C. 10. Vitamin B12. 11. Calcium. 12. Centrum Silver. 13. Turmeric. SOCIAL HISTORY: A 73-year-old female. She does not smoke. No significant alcohol intake. FAMILY HISTORY: Noncontributory. REVIEW OF SYSTEM: Negative for diabetes, neurologic problem, vascular problem, bleeding disorders. No chest pain or shortness of breath. No history of DVT or PE. No known bleeding problems. PHYSICAL EXAMINATION: GENERAL: Shows a pleasant, middle-aged female. She looks to be in pretty good health. HEENT: Benign. NECK: Supple, no lymphadenopathy. LUNGS: Clear to auscultation. HEART: Regular rate and rhythm. ABDOMEN: Soft, nontender, nondistended. EXTREMITIES: Grossly neurovascularly intact except as follows. Examination of the left knee reveals the patient ambulates independently. She has got valgus alignment to her knee which is worse with weightbearing. She has got a range of motion about 5 degrees short of full extension and 120 degrees of flexion. There is no gross instability. No pain with hip motion. X-RAYS: X-rays of the left knee reviewed. It shows advanced lateral compartment DJD. She has complete loss of her lateral joint space. She has got [id number] disease. She has got osteophytes laterally. ASSESSMENT: A 73-year-old white female with advanced left knee lateral compartment degenerative disk disease. She has failed conservative care. She does have significant scoliosis deformity followed by Dr. Philip. PLAN: We talked about treatment options and she elected to proceed with surgical treatment. We will take her to the Operating Room and do a left total knee replacement. The risks and benefits of this procedure were explained to the patient including but not limited to DVT, PE, , infection, neurological injury, vascular injury, bleeding problem, pain, limited range of motion, stiffness, failure to relieve symptoms, incomplete relief of symptoms, need for further surgery in future, fracture, leg length inequality, nerve palsy, persistent pain, etc. The patient understands and desires to proceed. Informed consent was obtained. We did talk to her specifically about the fact that this is not going to help her scoliosis and she is aware of that. She is planning to be discharged to home. Her daughter is going to come and stay with her. She will stop her meloxicam 10 days preop and take the Toprol the morning of surgery. OFELIA
[~2019-03-21 08:18] MED LIST: ACETAMINOPHEN 500 MG TAB PO SCH; BUPIVACAINE 0.5 % 5 MG/1 ML PF 10ML VIAL ONE; BUPIVACAINE LIPOSOME/PF 266 MG, BUPIVACAINE/EPINEPHRINE 50 ML, SODIUM CHLORIDE 0.9% 30 ... INFIL SCH; CEFAZOLIN 2000MG 2,000 MG/15 ML SYR IV SCH; FAMOTIDINE 20 MG TAB PO SCH; GABAPENTIN 300 MG CAP PO SCH; LR 500ML BOLUS, THEN 15ML/HR IV SCH; LR 60ML/HR IV SCH; METOCLOPRAMIDE HCL 10 MG TABLET PO SCH; ROPIVACAINE 0.5% 5 MG/ML 30 ML VIAL ONE; TRANEXAMIC ACID 1,000 MG **IV Intra-op IV SCH
--- NOTE | 2019-03-21 09:03 | History & Physical Bridge Note ---
Date of Service March 21, 2019 History & Physical Bridge Note I have examined the patient, reviewed the History & Physical and in the interval since the performance of the History & Physical I have noted the following changes of clinical significance: no changes noted
[2019-03-21] MEDS ORDERED: BACITRACIN INJ 50,000 UNIT VIAL ONE (09:42)
[2019-03-21] MEDS ORDERED: SODIUM CHLORIDE 0.9% PF 50 ML VIAL ONE (09:42)
[2019-03-21] MEDS ORDERED: BUPIVACAINE 0.25% 30 ML VIAL ONE (09:42)
[2019-03-21] MEDS ORDERED: BUPIVACAINE LIPOSOME 1.3% 266 MG/20 ML VIAL ONE (09:42)
[2019-03-21] MEDS ORDERED: EPINEPHrine INJ 1 MG/ML AMP ONE (09:43)
[2019-03-21] MEDS ORDERED: PROPOFOL IV EMULSION 10 MG/ML 20 ML VIAL IV ONE ×5 (10:03→12:35)
[2019-03-21] MEDS ORDERED: DEXAMETHASONE SOD INJ 4 MG/ML VIAL ONE (10:03)
[2019-03-21] MEDS ORDERED: MIDAZOLAM HCL 1 MG/ML 2ML VIAL ONE ×2 (10:04→11:16)
[2019-03-21] MEDS ORDERED: fentaNYL citrate 100 MCG/2 ML VIAL ONE (10:04)
[2019-03-21] MEDS ORDERED: ONDANSETRON INJ 2 MG/ML 2 ML VIAL ONE (10:05)
[2019-03-21] MEDS ORDERED: PHENYLEPHRINE 100MCG/ML 5ML SYR ONE (12:36)
[2019-03-21] MEDS ORDERED: ePHEDrine sulfate 50 MG/ML SYR ONE (12:36)
[2019-03-21] MEDS ORDERED: PHENYLEPHRINE HCL 10 MG/ML VIAL ONE (12:41)
--- NOTE | 2019-03-21 13:21 | Post Operative Brief Note ---
Immediate Post Op Note v1 Date of Surgery March 21, 2019 Pre & Post Diagnosis Operation Date: 03/21/19 10:40 Pre-Op Diagnosis: Left Knee Degenerative Joint Disease, Left Knee Pain Post-Op Diagnosis: Left Knee Degenerative Joint Disease, Left Knee Pain Procedure Operation Date: 03/21/19 10:40 Actual Procedures p Left Total Knee Arthroplasty--Cemented(Left) - Rodolfo Cosby MD Surgeon Rodolfo Cosby MD Sand Blaster [place], PAC Estimated Blood Loss 50 Findings Consistent with Post-Op Diagnosis Fluids 1100 cc Specimens Left Knee Drains Mckeon Catheter Anesthesia Type Spinal MAC Complications none Disposition Accompanied Patient To Recovery: No Disposition: Recovery Room
[2019-03-21] MEDS ORDERED: ePHEDrine sulfate 50 MG/ML AMP IV PRN (13:36)
[2019-03-21] MEDS ORDERED: ATROPINE SULFATE 0.1 MG/ML 10ML SYR IV PRN (13:36)
--- NOTE | 2019-03-21 14:06 | Anesthesiology Progress Note ---
Date of Service March 21, 2019 Anesthesia Post Procedure Vital Signs Vital Signs: Temp Pulse Pulse Resp BP BP Pulse Ox 03/21/19 14:00 80 14 135/76 95 03/21/19 13:50 81 15 115/85 95 03/21/19 13:40 79 11 L 128/67 95 03/21/19 13:31 36.1 C L 80 18 102/64 97 03/21/19 08:52 37.2 C 70 20 152/86 H 96 Pain Intensity Left Knee: Pain Intensity: 3 Lower Back: Pain Intensity: 4 Transfer of Care Handoff Completed per policy Notes Mental Status: alert / awake / arousable and participated in evaluation Patient Amnestic to Procedure: Yes Nausea / Vomiting: adequately controlled Pain: adequately controlled Airway Patency, RR, SpO2: stable & adequate BP & HR: stable & adequate Hydration State: stable & adequate Neuraxial Anesthesia: was administered and sensory block is resolving Anesthetic Complications: no major complications apparent
--- NOTE | 2019-03-21 14:21 | XRay Report ---
LEFT KNEE 2 VIEWS History: Left total knee arthroplasty. Degenerative arthritis. Postop. FINDINGS: The patient is status post a left total knee arthroplasty. The hardware is intact. No fract ure or dislocation. Skin ethan are in place. IMPRESSION: Left total knee arthroplasty. No evidence for hardware complication. Electronically signed by: Danish Hwang M.D. 03/21/2019 2:20 PM
[2019-03-21] MEDS ORDERED: HYDROmorphone INJ 0.5 MG/0.5 ML SYR IV PRN (14:38)
[2019-03-21] MEDS ORDERED: ONDANSETRON INJ 2 MG/ML 2 ML VIAL IV PRN (14:38)
[2019-03-21] MEDS ORDERED: MAGNESIUM HYDROXIDE SUSP 30 ML UDC PO PRN (14:38)
[2019-03-21] MEDS ORDERED: NALOXONE HCL 0.4 MG/1 ML VIAL/CARP IV PRN (14:38)
[2019-03-21] MEDS ORDERED: METOCLOPRAMIDE HCL INJ 5 MG/ML 2 ML VIAL IV PRN (14:38)
[2019-03-21] MEDS ORDERED: BISACODYL 10 MG SUPP PR PRN (14:38)
[2019-03-21] MEDS ORDERED: MECLIZINE HCL 25 MG TAB PO PRN (14:38)
[2019-03-21] MEDS ORDERED: SUMAtriptan succinate 50 MG TAB PO PRN (14:38)
[2019-03-21] MEDS ORDERED: SODIUM CHLORIDE 0.9% 1000ML 1,000 ML IV SCH (14:38)
[2019-03-21] MEDS ORDERED: ALUMINUM/MAGNESIUM SUSP 30 ML UDC PO PRN (14:38)
[2019-03-21] MEDS: KETOROLAC TROMETHAMINE 15 MG/ML VIAL IV SCH ×2 (16:16→21:46)
[2019-03-21] MEDS: FERROUS GLUCONATE 324 MG TAB PO SCH (17:55)
[2019-03-21] MEDS: ASCORBIC ACID 500 MG TAB PO SCH (17:56)
[2019-03-21] MEDS ORDERED: TRANEXAMIC ACID 1,000 MG in 0.9 % SODIUM CHLORIDE 100 ML IV SCH (19:22)
[2019-03-21] MEDS: TRAMADOL HCL 50 MG TABLET PO PRN (20:16)
[2019-03-21] MEDS: CEFAZOLIN 2000MG 2,000 MG/15 ML SYR IV SCH (20:17)
[2019-03-21] MEDS: CALCIUM 600MG + VIT D 400 IU TAB PO SCH (20:18)
[2019-03-21] MEDS: SENNA 8.6 MG TAB PO SCH (20:18)
[2019-03-21] MEDS: AMITRIPTYLINE HCL 25 MG TAB PO SCH (20:19)
[2019-03-21] MEDS: DOCUSATE SODIUM 100 MG CAP PO SCH (20:19)
[2019-03-21] MEDS: ASPIRIN 81 MG ECTAB PO SCH (20:19)
[2019-03-21] MEDS ORDERED: TURMERIC ROOT EXTRACT PO SCH (21:00)
[2019-03-21] MEDS: ACETAMINOPHEN 500 MG TAB PO SCH (21:46)
--- NOTE | 2019-03-22 00:53 | Operative Report ---
DATE OF OPERATION: 03/21/2019 SURGEON: Rodolfo Cosby MD LETTER STAMPING MACHINE OPERATOR: RYANN Gabriel PREOPERATIVE DIAGNOSIS: Left knee degenerative joint disease. POSTOPERATIVE DIAGNOSIS: Left knee degenerative joint disease. PROCEDURE PERFORMED: Left cemented posterior stabilized total knee arthroplasty. COMPLICATIONS: None. ESTIMATED BLOOD LOSS: 50 mL. FLUID REPLACEMENT: 1100 mL of crystalloid fluid replacement. ANESTHESIA: Spinal with adductor canal block. DRAINS: None. TOURNIQUET TIME: 56 minutes at 300 mmHg. OPERATIVE INDICATIONS: The patient is a 73-year-old female who has had a several year history of increasing left knee pain and discomfort and instability and progressive deformity to her knee. Patient has been through extensive conservative treatment without adequate relief. She elected to proceed with surgical treatment. OPERATIVE FINDINGS: Operative findings revealed advanced left knee DJD. She had extensive grade 4 [id number] disease of the lateral femoral condyle and lateral tibial plateau with eburnation on both surfaces. She had significant valgus deformity to her knee with a fixed valgus contracture. Moderate-sized joint effusion. Diffuse osteopenia medially. OPERATIVE IMPLANTS: Operative implants consisted of: 1. A Biomet Vanguard size 60 left posterior stabilized femoral component. 2. A Biomet size 67 tibial tray. 3. A 10 mm posterior stabilized polyethylene insert. 4. A 28 x 8 all poly patella. OPERATIVE PROCEDURE: The patient was taken to the operating room, identified and placed on the operating table in supine position. All contact areas were appropriately padded. IV antibiotics were provided by anesthesia team. A spinal anesthetic and adductor canal block had been provided in the holding area. Mckeon catheter was placed in sterile fashion. The left thigh tourniquet was then placed. The left lower extremity was then prepped and draped in usual sterile fashion. The left leg was elevated and exsanguinated with Esmarch and tourniquet was placed at 300 mmHg. An anterior approach to the left knee was then performed through a longitudinal incision centered over the patella. Sharp dissection was carried through the subcutaneous tissues down to the level of the extensor mechanism. A medial parapatellar arthrotomy incision was made. Some subperiosteal dissection was carried out medially. The fat pad was resected from beneath the patellar tendon. The lateral patellofemoral ligament was released. The patella was everted and knee was flexed. The osteophytes were taken off the distal femur. The ACL and PCL were then released from the distal femur and the tibia subluxated anteriorly. The external tibial alignment jig was then placed in the anterior face of the tibia and adjusted 12 mm medially. Proximal tibial cut was made to remove about 6 mm of bone from the medial side. This just undercut the most eburnated part of the lateral femoral condyle. The tibia was then sized to a size 67. Attention was then drawn to the femur. The distal femur was entered with a sharp drill bit. Intramedullary canal was suctioned. A left 5-degree valgus cutting guide was placed. Distal femoral cutting block was pinned in place. Distal femoral cut was made to take an additional 3 mm of bone off the distal femur. The knee was then brought out into full extension. I did release the IT band in the posterolateral capsule in order to equalize the extension gap. Great care was taken to protect the peroneal nerve at all times. The knee was then flexed. I then sized the knee. The femoral sizing guide was placed. The knee was sized to a size 60. We downsized this almost an entire size due to the narrow medial and lateral dimensions. The size 60 AP cutting block was pinned parallel to the epicondylar axis, which was 6 degrees of external rotation. The anterior cut, anterior chamfer cut, posterior cut, posterior chamfer cuts were made. Box cutting guide was placed and adjusted slightly lateral and the box cut was made. The knee was flexed. The remnants of the medial and lateral menisci were excised. I did have to release the popliteus in order to equalize the flexion gap. The trial femoral component was placed. The tibial tray was pinned in maximum external rotation and drill and stem punch were used to create a defect in the proximal tibia for the tibial tray. The knee was then trialed and the 10 mm insert fit most appropriately. Attention was then drawn to the patella. The patella was cleaned of all soft tissues. Patella thickness measured 21 mm in thickness, it was cut down to 12. It was sized to a size 28 patella. Lug holes were drilled for a 28 patella. The lateral osteophyte was removed. The patella button was placed. Knee was taken through range of motion, patella tracked nicely with no thumbs test. Attention was then drawn toward placement of permanent components. All trial components were removed. A bone plug was placed in the distal femur to limit blood loss. A double batch of Palacos G cement was mixed. A Biomet Vanguard size 60 left posterior stabilized femoral component, size 67 tibial tray, a 10 mm posterior stabilized polyethylene insert, and a 28 x 8 all poly patella were then cemented in place. Knee was brought out into full extension until cement hardened. A final cement check was then performed. Pericapsular tissues were injected with a total of 100 mL of combination of 20 mL of Exparel, 30 mL of normal saline, 50 mL of 0.25% Marcaine with epinephrine. The patient did receive 1 gram of tranexamic acid. The tourniquet was then let down for a tourniquet time of 56 minutes. Hemostasis was assured with use of electrocautery. The extensor mechanism was then closed with a combination of #1 PDS suture and #1 Vicryl suture in a [id number] fashion. The extensor mechanism was checked and found to be intact. The subcutaneous tissues were then closed with #2 Dexon suture in a buried interrupted fashion and skin was closed with skin ethan. The leg was then cleaned and dried and a sterile dressing of Xeroform, 4 x 4, sterile cast padding, and Andrew bandage were applied. The patient was then transferred to the recovery room in stable condition. The patient tolerated the procedure well with no complication. All needle and sponge counts were correct at the end of the operation. I attest to the content of the Intraoperative Record and any orders documented therein. Any exceptions are noted below. MTDD
[2019-03-22] MEDS: KETOROLAC TROMETHAMINE 15 MG/ML VIAL IV SCH ×4 (04:19→21:51)
[2019-03-22] MEDS: CEFAZOLIN 2000MG 2,000 MG/15 ML SYR IV SCH (04:19)
[2019-03-22 06:09] LABS: Hematocrit (blood only) 32.3 % (37-47); Hemoglobin 11.1 g/dL (12.0-16.0); Mean Corpuscular Hgb Conc 34.4 g/dL (32-36); Mean Corpuscular Volume 89.2 fL (80-100); RDW Coefficient of Variation 13.4 % (11.5-14.5); RDW Standard Deviation 43.9 fL (36.4-46.3); Red Blood Count 3.62 M/uL (4.2-5.4)
[2019-03-22] MEDS: ACETAMINOPHEN 500 MG TAB PO SCH ×3 (06:15→21:50)
[2019-03-22 06:46] LABS: BUN Creatinine Ratio 20.7 (10-20); Calcium 8.5 mg/dl (8.5-10.1); Creatinine Clr Calc Pharmacy 59.7 ml/min; Est GFR (African American) 69.8; Est GFR (Non-African American) 60.3; Potassium 3.8 mmol/L (3.5-5.1)
[2019-03-22 06:52] LABS: Mean Platelet Volume 10.9 fL (7.4-10.4); Platelet Count 68 K/uL (130-400); Platelet Estimate Decreased (Normal)
[2019-03-22] MEDS: ASCORBIC ACID 500 MG TAB PO SCH ×2 (08:32→18:06)
[2019-03-22] MEDS: FERROUS GLUCONATE 324 MG TAB PO SCH ×2 (08:32→18:06)
[2019-03-22] MEDS: CALCIUM 600MG + VIT D 400 IU TAB PO SCH ×2 (08:32→20:49)
[2019-03-22] MEDS: DOCUSATE SODIUM 100 MG CAP PO SCH ×2 (08:33→20:49)
[2019-03-22] MEDS: MULTIVITAMIN TAB PO SCH (08:33)
[2019-03-22] MEDS: PANTOprazole 40 MG TAB PO SCH (08:33)
[2019-03-22] MEDS: ASPIRIN 81 MG ECTAB PO SCH ×2 (08:33→20:48)
[2019-03-22] MEDS: CYANOCOBALAMIN 500 MCG TABLET (VITAMIN B-12) PO SCH (08:34)
[2019-03-22] MEDS: CHOLECALCIFEROL 1,000 UNITS TAB PO SCH (08:34)
[2019-03-22] MEDS: AMLODIPINE BESYLATE 5 MG TAB PO SCH (08:37)
[2019-03-22] MEDS: LISINOPRIL/HCTZ 20/25MG 1 TAB PO SCH (08:37)
[2019-03-22] MEDS: METOPROLOL SUCC 50MG EXT REL TAB PO SCH (08:38)
[2019-03-22] MEDS: TRAMADOL HCL 50 MG TABLET PO PRN (08:40)
[2019-03-22] MEDS ORDERED: MULTIVITAMIN TAB PO SCH (09:00)
[2019-03-22] MEDS ORDERED: NON-FORMULARY MEDICATION (Lutein-Zeaxanthin 1 CAP) PO SCH (09:00)
[2019-03-22] MEDS ORDERED: NON-FORMULARY MEDICATION (Ascorbic Acid (Vitamin C) [Vitamin C] 1 GM) PO SCH (09:00)
--- NOTE | 2019-03-22 09:56 | Anesthesiology Progress Note ---
Date of Service March 22, 2019 Anesthesia Post Procedure Vital Signs Vital Signs: Temp Pulse Pulse Pulse Resp BP BP 03/22/19 08:36 76 128/70 03/22/19 07:45 36.9 C 76 16 134/75 03/22/19 04:10 36.7 C 79 16 109/66 03/21/19 23:05 36.8 C 84 18 106/64 03/21/19 19:25 36.6 C 83 18 111/66 03/21/19 18:20 36.5 C 90 18 115/70 03/21/19 16:14 36.3 C L 84 18 123/74 03/21/19 15:29 35.7 C L 80 18 121/72 03/21/19 14:59 81 18 121/70 03/21/19 14:30 36.5 C 82 16 120/67 03/21/19 14:10 36.4 C L 81 14 127/78 03/21/19 14:00 80 14 135/76 03/21/19 13:50 81 15 115/85 03/21/19 13:40 79 11 L 128/67 03/21/19 13:31 36.1 C L 80 18 102/64 Pulse Ox 03/22/19 08:36 03/22/19 07:45 94 03/22/19 04:10 94 03/21/19 23:05 93 03/21/19 19:25 95 03/21/19 18:20 93 03/21/19 16:14 94 03/21/19 15:29 92 03/21/19 14:59 93 03/21/19 14:30 95 03/21/19 14:10 97 03/21/19 14:00 95 03/21/19 13:50 95 03/21/19 13:40 95 03/21/19 13:31 97 Pain Intensity Left Knee: Pain Intensity: 3 Lower Back: Pain Intensity: 0 Notes Mental Status: alert / awake / arousable and participated in evaluation Nausea / Vomiting: adequately controlled Pain: adequately controlled Airway Patency, RR, SpO2: stable & adequate BP & HR: stable & adequate Hydration State: stable & adequate Neuraxial Anesthesia: sensory block resolved
--- NOTE | 2019-03-22 11:42 | Progress Note ---
DATE: 03/22/2019 SUBJECTIVE: A 73-year-old white female postop day 1 from left knee replacement. She is doing pretty well. No pain at all while just resting, but a bit more painful with walking and bending. No chest pain or shortness of breath. Not feeling dizzy or lightheaded. OBJECTIVE: VITAL SIGNS: Temperature 36.9. Vital signs stable. PHYSICAL EXAMINATION: GENERAL: Shows a pleasant, middle-aged female. She is sitting up in her bedside chair, looks comfortable. LUNGS: Clear to auscultation. HEART: Regular rate and rhythm. ABDOMEN: Soft, nontender, nondistended. EXTREMITIES: Grossly neurovascularly intact except as follows: Examination of left lower extremity reveals the dressing to be clean, dry and intact. Her leg is well aligned. She can dorsiflex and plantarflex her foot appropriately. She is neurologically intact. LABORATORY DATA: Hemoglobin 11.1. Hematocrit 32.3. Electrolytes are stable. ASSESSMENT: A 73-year-old white female postoperative day 1 from left knee replacement, doing pretty well. Pain is controlled. She is neurologically intact. PLAN: 1. DVT prophylaxis including thigh-high TEDs, SCDs, and aspirin twice a day. 2. PT/OT. Weight bear as tolerated. Left total knee protocol. 3. Pain control, doing well with current pain regimen. 4. Disposition: We will plan to discharge to home with some home health and her daughter is going to assist in her care once medically stable and recovered.
[2019-03-22] MEDS: AMITRIPTYLINE HCL 25 MG TAB PO SCH (20:48)
[2019-03-22] MEDS: SENNA 8.6 MG TAB PO SCH ×2 (20:48→20:54)
[2019-03-23] MEDS: KETOROLAC TROMETHAMINE 15 MG/ML VIAL IV SCH ×3 (04:21→08:45)
[2019-03-23] MEDS: TRAMADOL HCL 50 MG TABLET PO PRN ×3 (04:26→12:44)
[2019-03-23] MEDS: ACETAMINOPHEN 500 MG TAB PO SCH (06:21)
--- NOTE | 2019-03-23 08:22 | Orthopedic Progress Note ---
Date of Service March 23, 2019 Assessment & Plan (1) Status post total left knee replacement: She was seen and examined by Dr. Berumen. Continue PT/OT wbat Dvt prophylaxis: teds, scds and aspirin Discharge home with home health today after PT and follow up in approx 2 weeks Subjective POD #2 from Left TKA. She was in the restroom this morning. Having some left knee pain. No other complaints. Physical Exam Physical Exam: She's alert and oriented. NAD. ambulating with a walker from the restroom to bed. Left knee dressing clean, dry, intact. Able to DF/PF, NVI Results & Data Vital Signs (Past 12 Hours) Vital Signs Temp Pulse Pulse Resp BP Pulse Ox 03/23/19 07:12 36.4 C L 62 16 128/72 95 03/22/19 23:35 36.9 C 64 16 111/67 95
[2019-03-23] MEDS: CYANOCOBALAMIN 500 MCG TABLET (VITAMIN B-12) PO SCH (08:42)
[2019-03-23] MEDS: CALCIUM 600MG + VIT D 400 IU TAB PO SCH (08:42)
[2019-03-23] MEDS: CHOLECALCIFEROL 1,000 UNITS TAB PO SCH (08:42)
[2019-03-23] MEDS: AMLODIPINE BESYLATE 5 MG TAB PO SCH (08:43)
[2019-03-23] MEDS: LISINOPRIL/HCTZ 20/25MG 1 TAB PO SCH (08:43)
[2019-03-23] MEDS: METOPROLOL SUCC 50MG EXT REL TAB PO SCH (08:44)
[2019-03-23] MEDS: ASPIRIN 81 MG ECTAB PO SCH (08:44)
[2019-03-23] MEDS: DOCUSATE SODIUM 100 MG CAP PO SCH (08:44)
[2019-03-23] MEDS: ASCORBIC ACID 500 MG TAB PO SCH (08:44)
[2019-03-23] MEDS: PANTOprazole 40 MG TAB PO SCH (08:45)
[2019-03-23] MEDS: FERROUS GLUCONATE 324 MG TAB PO SCH (08:45)
[2019-03-23] MEDS: MULTIVITAMIN TAB PO SCH (08:45)
--- NOTE | 2019-03-24 14:36 | Discharge Summary ---
ADMITTING PHYSICIAN AND SURGEON: Dr. Rodolfo Cosby. ADMITTING DIAGNOSIS: Left knee degenerative joint disease. SURGERY PERFORMED: Left total knee arthroplasty. SECONDARY DIAGNOSES: Hypertension, scoliosis, gastroesophageal reflux disease, obesity. CONSULTS: None obtained. HISTORY AND PHYSICAL EXAMINATION: Well documented in the patient's chart. HOSPITAL COURSE: The patient was admitted on 03/21/2019 underwent total knee arthroplasty, tolerated the procedure well. There were no complications. She was transferred to the PACU postoperatively and later to the orthopedic floor for further care. She was given Ancef for antibiotic prophylaxis, TERRY stockings, SCDs and aspirin for DVT prophylaxis. Hemoglobin, hematocrit and vital signs were monitored during her hospital stay and remained stable, did not require any blood transfusions. There were no complications. On postoperative day 2, she was tolerating a regular diet, pain was controlled with oral pain medicine. She was participating in physical therapy. Postop day 2, she was discharged home, set up with home health services, given printed discharge instructions as well as new prescriptions for extra strength Tylenol, aspirin and tramadol. Continue home medications, continue physical therapy, weightbearing as tolerated, TERRY stockings. Follow up approximately 2 weeks postop or sooner if there are any problems or concerns.
== END 2019-03-23 14:02 | disposition home health service (06) | DRG 470 ==
LOC: ASU 08:18 → 3E 13:25

== ENCOUNTER 2019-09-29 12:06 | Inpatient (IN) ==
[2019-09-29] MEDS ORDERED: KETOROLAC TROMETHAMINE 15 MG/ML VIAL IV STA (12:30)
[2019-09-29] MEDS ORDERED: SODIUM CHLORIDE 0.9% 1000ML 1,000 ML IV SCH (12:30)
[2019-09-29] MEDS ORDERED: DiphenhydrAMINE HCL 50 MG/ML VIAL IV STA (12:35)
[2019-09-29] MEDS ORDERED: PROCHLORPERAZINE 2 ML IV ONE (12:35)
[2019-09-29 13:06] LABS: Hematocrit (blood only) 37.8 % (37-47); Hemoglobin 12.6 g/dL (12.0-16.0); Mean Corpuscular Hemoglobin 30.2 pg (25-34); Mean Corpuscular Hgb Conc 33.3 g/dL (32-36); Mean Corpuscular Volume 90.6 fL (80-100); RDW Coefficient of Variation 14.7 % (11.5-14.5); RDW Standard Deviation 48.4 fL (36.4-46.3); Red Blood Count 4.17 M/uL (4.2-5.4); White Blood Count 10.08 K/uL (4.8-10.8)
[2019-09-29 13:30] LABS: Alanine Aminotransferase 20 U/L (12-78); Albumin Globulin Ratio 0.5 (0.9-2); Albumin Level 2.3 gm/dl (3.4-5.0); Alkaline Phosphatase 86 U/L (45-117); Aspartate Aminotransferase 37 U/L (15-37); BUN Creatinine Ratio 27.2 (10-20); Bilirubin,Total 1.2 mg/dl (0.2-1); Blood Urea Nitrogen 20 mg/dl (7-18); Calcium 8.9 mg/dl (8.5-10.1); Carbon Dioxide 32 mmol/L (21-32); Chloride 95 mmol/L (98-107); Creatinine Clr Calc Pharmacy 71.3 ml/min; Est GFR (African American) 93.8; Est GFR (Non-African American) 80.9; Globulin 4.8 gm/dl (2.5-4.0); Glucose 121 mg/dl (70-99); Lipase 81 U/L (73-393); Platelet Count 82 K/uL (130-400); Potassium 3.5 mmol/L (3.5-5.1); Sodium 132 mmol/L (136-145); Total Protein 7.1 gm/dl (6.4-8.2); Troponin I < 0.015 ng/ml (0-0.045)
[2019-09-29 13:31] LABS: Basophils # (auto) 0.01 K/uL (0-0.2); Basophils % (auto) 0.1 %; Eosinophils # (auto) 0.01 K/uL (0-0.5); Eosinophils % (auto) 0.1 %; Immature Granulocytes # (auto) 0.04 K/uL (0.00-0.02); Immature Granulocytes % (auto) 0.4 %; Lymphocytes % (auto) 7.9 %; Monocytes # (auto) 1.07 K/uL (0.11-0.59); Monocytes % (auto) 10.6 %; Neutrophils # (auto) 8.15 K/uL (1.4-6.5); Neutrophils % (auto) 80.9 %; Platelet Estimate Decreased (Normal); RBC Morphology Unremarkable
[2019-09-29] MEDS ORDERED: IOVERSOL 100ml IV PRN (14:26)
--- NOTE | 2019-09-29 14:45 | CT Scan Report ---
CT head/brain wo con CLINICAL HISTORY: headache COMPARISON STUDY: No previous studies for comparison. TECHNIQUE: Axial CT of the brain is performed from the vertex to the skull base. IV contrast was not administered for this examination. A dose lowering technique was utilized adhering to the principles of ALARA. CT DOSE: 638.56 mGycm FINDINGS: No intra or extra-axial mass lesions are visualized. There is no CT evidence of acute cortical infarc tion. There is no evidence of midline shift. There is no acute hemorrhage. No calvarial fractures ar e visualized. There are minor white matter hypodensities likely on a small vessel basis. There is no evidence of pathologic ventricular dilatation. There are opacified right ethmoid air cells. There is right frontal sinus air-fluid levels. The findi ngs are likely on an infectious/inflammatory basis. IMPRESSION: 1. Right frontal sinus air-fluid levels, and right ethmoid sinus opacification. Clinical correlation in regards to acute sinusitis is recommended. 2. Otherwise no acute intracranial findings ACT 112: Negative or not required by law. Electronically signed by: Nathaniel Flores M.D. 09/29/2019 2:43 PM
--- NOTE | 2019-09-29 14:54 | CT Scan Report ---
CT abd pelvis IV con only CLINICAL HISTORY: Lower back and flank pain R >L COMPARISON STUDY: 11/28/2017 TECHNIQUE: The patient was scanned in a dynamic helical fashion during intravenous administration of 94 cc of Optiray 320. A dose lowering technique was utilized adhering to the principles of ALARA. CT DOSE: 1133.47 mGycm FINDINGS: Lower chest: There is a small hiatal hernia with mild distal esophageal wall thickening. Liver: The liver has a cirrhotic morphology. No focal masses are visualized. There is trace perihepat ic fluid. Gallbladder: Mildly distended. No calculi are visualized on CT scanning. Spleen: The spleen is mildly enlarged measuring 13.5 cm. Pancreas: Unremarkable. Adrenal glands: Unremarkable. Kidneys: There is an 8 mm right renal cyst. No solid renal masses are visualized. There is no hydrone phrosis. Bowel: There are no transition zones to indicate bowel obstruction. There is colonic diverticulosis. There is no evidence of acute diverticulitis. There is mild nonspecific edema of the cecum and proxim al ascending colon. By history the appendix is surgically absent Peritoneum: There is a small amount of free pelvic fluid. No free air is visualized. Vasculature: The abdominal aorta is normal in course and caliber. Adenopathy: None. Pelvic viscera: The uterus appears surgically absent. Skeletal structures: No destructive changes are visualized. There is severe multilevel lumbar spinal stenosis. IMPRESSION: 1. No evidence of bowel obstruction. No evidence of free air 2. Cecal and proximal ascending colon edema. The findings are suggestive of a nonspecific colitis, or could be secondary to edema from hepatocellular disease 3. Diverticulosis. No evidence of acute diverticulitis 4. Minimal ascites 5. Cirrhotic morphology the liver with splenomegaly 6. Multilevel severe lumbar spinal stenosis ACT 112: Negative or not required by law. Electronically signed by: Nathaniel Flores M.D. 09/29/2019 2:52 PM
--- NOTE | 2019-09-29 14:58 | CT Scan Report ---
CT OF THE LUMBAR SPINE CLINICAL HISTORY: lower back pain R>L COMPARISON STUDY: Lumbar spine radiographs September 27, 2019. TECHNIQUE: Helical axial images of the lumbar spine were obtained. Sagittal and coronal reconstruct ions were viewed. Automated exposure control was utilized for the study. A dose lowering technique was utilized adhering to the principles of ALARA. FINDINGS: Please note that the CT of the abdomen and pelvis will be reported separately. Moderate lev oscoliosis of the lumbar spine is noted. Vertebral body heights are maintained. There is no fracture or suspicious lesion by CT. Paravertebral soft tissues are unremarkable. The central canal and neural foramen are suboptimally assessed by CT. There is severe multilevel facet arthrosis and moderate mul tilevel degenerative disc disease within the lumbar spine. Facet joints are intact. Sacroiliac joints are intact. IMPRESSION: 1. No acute lumbar spine fracture or subluxation. 2. Moderate levoscoliosis of the lumbar spine. 3. Severe multilevel facet arthrosis. Moderate multilevel degenerative disc disease within the lumbar spine. Suboptimal evaluation of the central canal and neural foramen given CT technique. ACT 112: Negative or not required by law. Electronically signed by: Ketan Mejía M.D. 09/29/2019 2:57 PM
[2019-09-29] MEDS ORDERED: ACETAMINOPHEN 1,000 MG/100 ML VIAL IV STA (15:09)
[2019-09-29] MEDS ORDERED: fentaNYL citrate 100 MCG/2 ML VIAL IV STA (15:09)
--- NOTE | 2019-09-29 17:30 | History & Physical Report ---
Date of Service September 29, 2019 Assessment & Plan (1) Intractable back pain: -Admit to [facility] -Patient presenting from home with reports of intractable low back/SI joint pain and hallucinations -Seen in the ED on 09/27 and discharged home on Hutchinson -Patient reports continued pain despite use of Hutchinson -CT lumbar spine in the ED showing severe multilevel facet arthrosis. Moderate multilevel degenerative disc disease within the lumbar spine. -Both SI joints tender to palpation, patient may benefit from SI joint injection -Spine Ortho consult, case discussed with Dr. 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 Patient with history of chronic back and SI joint pain. Patient was seen in the ED on 09/27. She was given IV morphine and discharged home on p.o. Hutchinson. Patient reports that since taking the Hutchinson, she is developed confusion and hallucinations. Last dose of Hutchinson was last night around midnight. The Hutchinson has not been helping her back pain. She denies any unilateral weakness, numbness, tingling. No facial droop, slurred speech, difficulty speaking or understanding. Pain is located over the bilateral SI joints with radiation to both hips. Denies any radiation radiation of the pain into the legs. No numbness, tingling, weakness to the legs. Denies loss of bowel or bladder function. About 1 week ago, patient reports she was running fevers and had sinus congestion. Influenza testing on 09/27 negative. Patient denies chest pain shortness of breath. No lightheadedness, dizziness, diaphoresis, syncopal events. She denies abdominal pain, nausea, vomiting, diarrhea. No urinary symptoms. In the ED, lumbar spine CT shows severe multilevel facet arthrosis. Moderate multilevel degenerative disc disease within the lumbar spine. Head CT negative for acute intracranial findings however suggest acute sinusitis. CT ABD/pelvis negative for acute findings. Labs unremarkable. Patient has remained hemodynamically stable. She was given IV Benadryl, IV fentanyl, IV Toradol, IV prochlorperazine, IVF, IV Tylenol. Primary Care Provider: Gorge Garibay DO Allergies Allergy/AdvReac Type Severity Reaction Status Date / Time No Known Allergies Allergy Verified 09/29/19 14:06 Home Medications Home Medications Medication Instructions Recorded Confirmed Type Calcium 600 + D(3) 1 cap PO BID 03/09/19 09/29/19 History amitriptyline 25 mg PO HS 03/09/19 09/29/19 History ascorbic acid (vitamin C) [Vitamin 1 g PO QAM 03/09/19 09/29/19 History C] cholecalciferol (vitamin D3) 2,000 unit PO QAM 03/09/19 09/29/19 History [Vitamin D3] cyanocobalamin (vitamin B-12) 1,000 mcg PO QAM 03/09/19 09/29/19 History [Vitamin B-12] esomeprazole magnesium [Nexium] 40 mg PO QAM 03/09/19 09/29/19 History lisinopril-hydrochlorothiazide 2 tab PO QAM 03/09/19 09/29/19 History [Zestoretic] lutein-zeaxanthin 1 cap PO QAM 03/09/19 09/29/19 History meclizine 25 mg PO DAILY PRN 03/09/19 09/29/19 History meloxicam 15 mg PO QAM 03/09/19 09/29/19 History metoprolol succinate [Toprol XL] 100 mg PO QAM 03/09/19 09/29/19 History multivitamin 1 tab PO QAM 03/09/19 09/29/19 History sumatriptan succinate [Imitrex] 50 mg PO DAILY PRN 03/09/19 09/29/19 History turmeric root extract 2,000 mg PO HS 03/09/19 09/29/19 History acetaminophen [Tylenol Extra 500 mg PO Q6H PRN 09/29/19 09/29/19 History Strength] hydrocodone-acetaminophen [Vicodin 1 tab PO HS PRN 09/29/19 09/29/19 History HP] Past Med/Surg History Medical History Chronic back pain Fatty liver disease, nonalcoholic GERD (gastroesophageal reflux disease) Hypertension Kidney stones Migraine Obesity Osteoarthritis Scoliosis Thrombocytopenia Surgical History History of colonoscopy History of esophagogastroduodenoscopy (EGD) History of left knee replacement History of tonsillectomy S/P epidural steroid injection s/p right sacroiliac injection (03/07/19) S/P PITO-BSO Family History Mother Cervical cancer Family history of diabetes mellitus, Onset Age: 80 Brother Family history of esophageal cancer, Onset Age: 61 Social History Preferred Language: Bolivian Communication Ability: Effective 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 Beliefs That Will Affect Care: None marital status: Current Living Situation: Alone Other Information That Helps Us Care for You: No Feels Safe at Home: Yes Safety Concerns: Feels Safe At This Time Smoking Status: Never smoker Second Hand Exposure: No ; Hx Alcohol Use: Yes Alcohol type: wine Hx Substance Use: No Review of Systems Review of Systems: ROS per HPI, all other systems reviewed and negative Physical Exam Constitutional: WD/WN, vitals as above Eyes: PERRL, conjunctivae normal, anicteric sclerae ENMT: external ear and nose normal, oropharynx normal Respiratory: normal respiratory effort, lungs clear to auscultation Cardiovascular: Rate/Rhythm: regular rate and regular rhythm Vessels: normal peripheral pulses Extremities: no edema Gastrointestinal (Abdomen): normal bowel sounds, soft, nontender, no hepatosplenomegaly Musculoskeletal: no cyanosis or clubbing, extremities motor strength 5/5 Spine: + sacroiliac joint abnormality (Tenderness over both SI joints) Skin: no rashes, warm and dry Neurologic: PERRL, EOMI, accommodation nl, no face palsy, no dysarthria Psychiatric: A+Ox3, euthymic affect Results & Data Vital Signs (Past 12 Hours) Vital Signs Temp Pulse Pulse Resp BP BP Pulse Ox 09/29/19 17:00 83 17 105/54 L 09/29/19 16:31 86 17 128/65 09/29/19 16:05 80 13 137/79 95 09/29/19 14:05 71 16 95/53 L 91 09/29/19 14:03 94 09/29/19 13:30 72 17 108/56 L 92 09/29/19 13:00 76 15 116/66 91 09/29/19 12:52 92 09/29/19 12:51 78 21 117/50 L 92 09/29/19 12:17 36.8 C 74 20 133/71 92 Laboratory Results Short CBC 09/29/19 Range/Units 12:58 WBC 10.08 (4.8-10.8) K/uL Hgb 12.6 (12.0-16.0) g/dL Hct 37.8 (37-47) % Plt Count 82 L (130-400) K/uL BMP 09/29/19 12:58 Sodium 132 L Potassium 3.5 D Chloride 95 L Carbon Dioxide 32 BUN 20 H Creatinine 0.74 Glucose 121 H Calcium 8.9 Cardiac Enzymes 09/29/19 Range/Units 12:58 Troponin I < 0.015 (0-0.045) ng/ml Liver Function 09/29/19 Range/Units 12:58 Total Bilirubin 1.2 H (0.2-1) mg/dl AST 37 (15-37) U/L ALT 20 (12-78) U/L Alkaline Phosphatase 86 (45-117) U/L Albumin 2.3 L (3.4-5.0) gm/dl Diagnostic Findings CT LUMBAR SPINE IMPRESSION: 1. No acute lumbar spine fracture or subluxation. 2. Moderate levoscoliosis of the lumbar spine. 3. Severe multilevel facet arthrosis. Moderate multilevel degenerative disc disease within the lumbar spine. Suboptimal evaluation of the central canal and neural foramen given CT technique. HEAD CT IMPRESSION: 1. Right frontal sinus air-fluid levels, and right ethmoid sinus opacification. Clinical correlation in regards to acute sinusitis is recommended. 2. Otherwise no acute intracranial findings CT ABD/Pelvis IMPRESSION: 1. No evidence of bowel obstruction. No evidence of free air 2. Cecal and proximal ascending colon edema. The findings are suggestive of a nonspecific colitis, or could be secondary to edema from hepatocellular disease 3. Diverticulosis. No evidence of acute diverticulitis 4. Minimal ascites 5. Cirrhotic morphology the liver with splenomegaly 6. Multilevel severe lumbar spinal stenosis Code Status & VTE Plan VTE Prophylaxis Plan VTE Prophylaxis will be ordered: Yes Supervising Physician Co-Signing Physician Notes Attending addendum: The patient was seen and examined in the emergency room She has bilateral sacroiliitis and was given Vicodin for pain control She has been complaining of confusion and noted to have hallucination following use of Vicodin Denies any other symptoms during my examination On examination Lying in bed comfortably Hemodynamically stable with blood pressure lower side of normal Chest-clear to auscultate bilaterally Heart-S1-S2, 2/6 systolic murmur over precordium Abdomen-benign Extremities-no edema Examination of the musculoskeletal system did not show any acute arthritis but bilateral sacroiliac joint lines were tender TELEPHONE INTERVIEWER-alert, awake and oriented x3 Admission labs and imaging studies reviewed Acute confusion likely secondary to use of narcotics Intractable back pain secondary to bilateral sacroiliitis Agree with assessment plan as outlined above by Daisy solano
--- NOTE | 2019-09-29 17:32 | Electrocardiogram Report ---
Test Reason : Blood Pressure : / mmHG Vent. Rate : 078 BPM Atrial Rate : 078 BPM P-R Int : 150 ms QRS Dur : 086 ms QT Int : 410 ms P-R-T Axes : 051 036 056 degrees QTc Int : 467 ms Poor data quality, interpretation may be adversely affected Normal sinus rhythm Possible Left atrial enlargement Borderline ECG When compared with ECG of 27-SEP-2019 17:54, No significant change was found Confirmed by Sergio Davis ([id number]) on 09/29/2019 5:31:46 PM Referred By: REFERRED SELF Confirmed By:Calderon Davis
[2019-09-29] MEDS ORDERED: DEXAMETHASONE SOD INJ 4 MG/ML VIAL IV SCH (18:29)
[2019-09-29 19:07] LABS: Appearance Urine Clear (Clear); Blood Urine Negative (Negative); Epithelial Cell Urine Auto >30 /lpf (0-5); Glucose Urine UA Negative (Negative); Ketones Urine Negative (Negative); Leukocyte Esterase Urine Negative (Negative); Nitrite Urine Positive (Negative); Protein Urine Trace (Negative); RBC Urine Automated 0-4 /hpf (0-4); Specific Gravity Urine > 1.045 (1.000-1.030); Urobilinogen Urine Negative (Negative)
[2019-09-29 19:10] LABS: Color Urine Amber
[2019-09-29 19:12] LABS: Bilirubin Urine Negative (Negative); Ictotest Urine Negative (Negative)
[2019-09-29 19:34] LABS: Bacteria Urine Automated 1+ (Negative)
[2019-09-29 19:35] LABS: Mucus Urine Present (None Prsent)
--- NOTE | 2019-09-29 19:39 | Emergency Department Note ---
Entered by Candice Kam acting as a scribe for Tony Diane M.D. History of Present Illness General Chief complaint: Back Injury/Pain Stated complaint: back pain/ migraine Time Seen by Provider: 09/29/19 12:23 Source: patient History of Present Illness Provider complaint: migraine Onset (ago): week(s) 1 Location: head Maximum Pain Intensity: 5 Relieved By: + medication (Tylenol ) Exacerbated By: + none Associated symptoms: + other (-abdominal pain, -numbness, +right eye pain, +bilateral hip pain) The patient is a 74 year old female who presents to the Emergency Room with complaints of a migraine a week ago. She notes that the day after her migraine episode she experience flu-like symptoms. She notes that she has been experiencing bilateral hip pain. She notes that the pain radiates to her lower back. She notes that her right eye has been dry. She reports that she was here 2 days ago. She denies any abdominal pain or numbness. The patient states that Tylenol has alleviated her pain temporarily. She states that she has a history of shingles. Per the patient's daughter, the patient was experiencing hallucin ations while on her Vicodin medication. Home Medications Home Medications Medication Instructions Recorded Confirmed Type Calcium 600 + D(3) 1 cap PO BID 03/09/19 09/29/19 History amitriptyline 25 mg PO HS 03/09/19 09/29/19 History ascorbic acid (vitamin C) [Vitamin 1 g PO QAM 03/09/19 09/29/19 History C] cholecalciferol (vitamin D3) 2,000 unit PO QAM 03/09/19 09/29/19 History [Vitamin D3] cyanocobalamin (vitamin B-12) 1,000 mcg PO QAM 03/09/19 09/29/19 History [Vitamin B-12] esomeprazole magnesium [Nexium] 40 mg PO QAM 03/09/19 09/29/19 History lisinopril-hydrochlorothiazide 2 tab PO QAM 03/09/19 09/29/19 History [Zestoretic] lutein-zeaxanthin 1 cap PO QAM 03/09/19 09/29/19 History meclizine 25 mg PO DAILY PRN 03/09/19 09/29/19 History meloxicam 15 mg PO QAM 03/09/19 09/29/19 History metoprolol succinate [Toprol XL] 100 mg PO QAM 03/09/19 09/29/19 History multivitamin 1 tab PO QAM 03/09/19 09/29/19 History sumatriptan succinate [Imitrex] 50 mg PO DAILY PRN 03/09/19 09/29/19 History turmeric root extract 2,000 mg PO HS 03/09/19 09/29/19 History acetaminophen [Tylenol Extra 500 mg PO Q6H PRN 09/29/19 09/29/19 History Strength] hydrocodone-acetaminophen [Vicodin 1 tab PO HS PRN 09/29/19 09/29/19 History HP] Allergies Allergy/AdvReac Type Severity Reaction Status Date / Time No Known Allergies Allergy Verified 09/29/19 14:06 Past Med/Surg History Medical History Chronic back pain Fatty liver disease, nonalcoholic GERD (gastroesophageal reflux disease) Hypertension Kidney stones Migraine Obesity Osteoarthritis Scoliosis Thrombocytopenia Surgical History History of colonoscopy History of esophagogastroduodenoscopy (EGD) History of left knee replacement History of tonsillectomy S/P epidural steroid injection s/p right sacroiliac injection (03/07/19) S/P PITO-BSO Family History Mother Cervical cancer Family history of diabetes mellitus, Onset Age: 80 Brother Family history of esophageal cancer, Onset Age: 61 Social History Preferred Language: Chilean Communication Ability: Effective Protective Services Case Worker Required: No Beliefs That Will Affect Care: None marital status: Current Living Situation: Alone Other Information That Helps Us Care for You: No Feels Safe at Home: Yes Safety Concerns: Feels Safe At This Time Smoking Status: Never smoker Second Hand Exposure: No ; Hx Alcohol Use: Yes Alcohol type: wine Hx Substance Use: No Review of Systems See HPI for pertinent positives & negatives. and A total of 10 systems reviewed and were otherwise negative Physical Exam Vital Signs Vital Signs - 24 hr 09/29/19 12:17 09/29/19 12:51 09/29/19 12:52 Temperature 36.8 C Temperature Source Oral Pulse Rate 74 78 Pulse Rate [Apical] Pulse Rate from SpO2 Sensor 78 Respiratory Rate 20 21 Respiratory Depth Normal Blood Pressure 133/71 117/50 L Blood Pressure [Left Arm] Blood Pressure Mean 91 82 Blood Pressure Mean [Left Arm] Pulse Oximetry 92 92 92 Oxygen Delivery Method Room Air Room Air Oxygen Flow Rate Sepsis Recent Fever Within 48 Hours No Sepsis New/Unexplained Change in Mental Status No Sepsis Action Taken by Nursing No Action Required 09/29/19 13:00 09/29/19 13:30 09/29/19 14:03 Temperature Temperature Source Pulse Rate 76 72 Pulse Rate [Apical] Pulse Rate from SpO2 Sensor 76 72 Respiratory Rate 15 17 Respiratory Depth Blood Pressure 116/66 108/56 L Blood Pressure [Left Arm] Blood Pressure Mean 86 77 Blood Pressure Mean [Left Arm] Pulse Oximetry 91 92 94 Oxygen Delivery Method Room Air Nasal Cannula Oxygen Flow Rate 2 Sepsis Recent Fever Within 48 Hours Sepsis New/Unexplained Change in Mental Status Sepsis Action Taken by Nursing 09/29/19 14:05 09/29/19 16:05 Temperature Temperature Source Pulse Rate 71 Pulse Rate [Apical] 80 Pulse Rate from SpO2 Sensor 71 Respiratory Rate 16 13 Respiratory Depth Blood Pressure 95/53 L Blood Pressure [Left Arm] 137/79 Blood Pressure Mean 70 Blood Pressure Mean [Left Arm] 98 Pulse Oximetry 91 95 Oxygen Delivery Method Nasal Cannula Oxygen Flow Rate 2 1 Sepsis Recent Fever Within 48 Hours Sepsis New/Unexplained Change in Mental Status Sepsis Action Taken by Nursing GENERAL: Awake, alert, fatigued appearing, in no distress HENT: Normocephalic, atraumatic. Oropharynx unremarkable. EYES: Normal conjunctiva. Sclera non-icteric. PERRL, slight tenderness of right upper eyelid without skin changes. NECK: Supple. No nuchal rigidity. RESPIRATORY: Clear to auscultation. No wheezes. Normal respiratory effort. CARDIAC: Normal rate. Normal rhythm. Extremities warm and well perfused. GI: Soft, non-distended. No tenderness to palpation. No rebound or guarding. RECTAL: Deferred. MUSCULOSKELETAL: Atraumatic. Chest examination reveals no tenderness. LOWER EXTREMITIES: Calves are equal size bilaterally and non-tender. No edema. Bilateral lower hip and flank tenderness. NEURO: Normal sensorium. No sensory or motor deficits noted. No facial droop. SKIN: Warm and dry. No rash or jaundice noted. Course Course 1226: The patient was evaluated in room B6, and a complete history and physical examination were performed. 1400: I reviewed the patient's case with Dr. Sergio Reeves. He will evaluate the patient for further management. Administered Medications Discontinued Medications Diphenhydramine HCl (Benadryl) 25 mg IV NOW STA Stop: 09/29/19 12:36 Last Admin: 09/29/19 13:02 Dose: 25 mg Documented by: [id number] Fentanyl Citrate (Fentanyl Citrate) 50 mcg IV NOW STA Stop: 09/29/19 15:10 Last Admin: 09/29/19 16:13 Dose: 50 mcg Documented by: [id number] Sodium Chloride (Nss 1000ml) 1,000 mls @ 100 mls/hr IV .Q10H VANIA Stop: 09/29/19 22:29 Last Infusion: 09/29/19 19:03 Dose: 0 mls/hr Documented by: [id number] Admin: 09/29/19 13:01 Dose: 100 mls/hr Documented by: [id number] Prochlorperazine (Compazine) 2 mls @ 1 mls/min IV ONE ONE Stop: 09/29/19 12:36 Last Admin: 09/29/19 13:02 Dose: 1 mls/min Documented by: [id number] Acetaminophen (Ofirmev) 1,000 mg in 100 mls @ 400 mls/hr IV NOW STA Stop: 09/29/19 15:23 Last Infusion: 09/29/19 16:31 Dose: 0 mls/hr Documented by: [id number] Admin: 09/29/19 16:16 Dose: 400 mls/hr Documented by: [id number] Ioversol (Optiray 320 100ml) 94 ml IV ONCE PRN PRN Reason: Interaction Checking Stop: 10/03/19 14:25 Last Admin: 09/29/19 14:26 Dose: 94 ml Documented by: [id number] Ketorolac Tromethamine (Toradol) 15 mg IV ONE STA Stop: 09/29/19 12:31 Last Admin: 09/29/19 13:02 Dose: 15 mg Documented by: [id number] Medical Decision Making Differential Diagnosis Differential diagnosis: Etiologies such as appendicitis, diverticulitis, PUD, biliary pathology, UTI, pancreatitis, obstruction, mesenteric ischemia, aortic pathology, infections, inflammatory bowel disease, renal colic, migraine h eadache, meningitis, sinusitis, CO exposure, ICH, SAH, tumor, headache, sinus thrombosis, arterial dissection, as well as others were entertained. Medical Records Attestation: I reviewed the patient's medical records. Home Medications Current Medication List: was personally reviewed by me Laboratory Data Attestation: I reviewed the patient's lab results. Result diagrams: 09/29/19 12:58 09/29/19 12:58 Lab Results 09/29/19 09/29/19 Range/Units 12:58 12:58 WBC 10.08 (4.8-10.8) K/uL RBC 4.17 L (4.2-5.4) M/uL Hgb 12.6 (12.0-16.0) g/dL Hct 37.8 (37-47) % MCV 90.6 (80-100) fL MCH 30.2 (25-34) pg MCHC 33.3 (32-36) g/dL RDW Std Deviation 48.4 H (36.4-46.3) fL RDW Coeff of Lucie 14.7 H (11.5-14.5) % Plt Count 82 L (130-400) K/uL MPV 11.0 H (7.4-10.4) fL Immature Gran % (Auto) 0.4 % Neut % (Auto) 80.9 % Lymph % (Auto) 7.9 % Addison % (Auto) 10.6 % Eos % (Auto) 0.1 % Baso % (Auto) 0.1 % Immature Gran # (Auto) 0.04 H (0.00-0.02) K/uL Neut # (Auto) 8.15 H (1.4-6.5) K/uL Lymph # (Auto) 0.80 L (1.2-3.4) K/uL Addison # (Auto) 1.07 H (0.11-0.59) K/uL Eos # (Auto) 0.01 (0-0.5) K/uL Baso # (Auto) 0.01 (0-0.2) K/uL Platelet Estimate Decreased L (Normal) RBC Morphology Unremarkable Sodium 132 L (136-145) mmol/L Potassium 3.5 D (3.5-5.1) mmol/L Chloride 95 L (98-107) mmol/L Carbon Dioxide 32 (21-32) mmol/L Anion Gap 5.0 (3-11) BUN 20 H (7-18) mg/dl Creatinine 0.74 (0.6-1.2) mg/dl Est Cr Clr Drug Dosing 71.3 ml/min Est GFR ( Amer) 93.8 Est GFR (Non-Af Amer) 80.9 BUN/Creatinine Ratio 27.2 H (10-20) Glucose 121 H (70-99) mg/dl Calcium 8.9 (8.5-10.1) mg/dl Total Bilirubin 1.2 H (0.2-1) mg/dl AST 37 (15-37) U/L ALT 20 (12-78) U/L Alkaline Phosphatase 86 (45-117) U/L Troponin I < 0.015 (0-0.045) ng/ml Total Protein 7.1 (6.4-8.2) gm/dl Albumin 2.3 L (3.4-5.0) gm/dl Globulin 4.8 H (2.5-4.0) gm/dl Albumin/Globulin Ratio 0.5 L (0.9-2) Lipase 81 (73-393) U/L Imaging Data Radiologist's Impression: Radiology results as stated below per my review and the radiologist's interpretation: CT abd pelvis IV con only CLINICAL HISTORY: Lower back and flank pain R >L COMPARISON STUDY: 11/28/2017 TECHNIQUE: The patient was scanned in a dynamic helical fashion during intravenous administration of 94 cc of Optiray 320. A dose lowering technique was utilized adhering to the principles of ALARA. CT DOSE: 1133.47 mGycm FINDINGS: Lower chest: There is a small hiatal hernia with mild distal esophageal wall thickening. Liver: The liver has a cirrhotic morphology. No focal masses are visualized. There is trace perihepatic fluid. Gallbladder: Mildly distended. No calculi are visualized on CT scanning. Spleen: The spleen is mildly enlarged measuring 13.5 cm. Pancreas: Unremarkable. Adrenal glands: Unremarkable. Kidneys: There is an 8 mm right renal cyst. No solid renal masses are visualized. There is no hydronephrosis. Bowel: There are no transition zones to indicate bowel obstruction. There is colonic diverticulosis. There is no evidence of acute diverticulitis. There is mild nonspecific edema of the cecum and proximal ascending colon. By history the appendix is surgically absent Peritoneum: There is a small amount of free pelvic fluid. No free air is visualized. Vasculature: The abdominal aorta is normal in course and caliber. Adenopathy: None. Pelvic viscera: The uterus appears surgically absent. Skeletal structures: No destructive changes are visualized. There is severe multilevel lumbar spinal stenosis. IMPRESSION: 1. No evidence of bowel obstruction. No evidence of free air 2. Cecal and proximal ascending colon edema. The findings are suggestive of a nonspecific colitis, or could be secondary to edema from hepatocellular disease 3. Diverticulosis. No evidence of acute diverticulitis 4. Minimal ascites 5. Cirrhotic morphology the liver with splenomegaly 6. Multilevel severe lumbar spinal stenosis ACT 112: Negative or not required by law. Electronically signed by: Nathaniel Flores M.D. 09/29/2019 2:[address] head/brain wo con CLINICAL HISTORY: headache COMPARISON STUDY: No previous studies for comparison. TECHNIQUE: Axial CT of the brain is performed from the vertex to the skull base. IV contrast was not administered for this examination. A dose lowering technique was utilized adhering to the principles of ALARA. CT DOSE: 638.56 mGycm FINDINGS: No intra or extra-axial mass lesions are visualized. There is no CT evidence of acute cortical infarction. There is no evidence of midline shift. There is no acute hemorrhage. No calvarial fractures are visualized. There are minor white matter hypodensities likely on a small vessel basis. There is no evidence of pathologic ventricular dilatation. There are opacified right ethmoid air cells. There is right frontal sinus air- fluid levels. The findings are likely on an infectious/inflammatory basis. IMPRESSION: 1. Right frontal sinus air-fluid levels, and right ethmoid sinus opacification. Clinical correlation in regards to acute sinusitis is recommended. 2. Otherwise no acute intracranial findings ACT 112: Negative or not required by law. Electronically signed by: Nathaniel Flores M.D. 09/29/2019 2:[address] OF THE LUMBAR SPINE CLINICAL HISTORY: lower back pain R>L COMPARISON STUDY: Lumbar spine radiographs September 27, 2019. TECHNIQUE: Helical axial images of the lumbar spine were obtained. Sagittal and coronal reconstructions were viewed. Automated exposure control was utilized for the study. A dose lowering technique was utilized adhering to the principles of ALARA. FINDINGS: Please note that the CT of the abdomen and pelvis will be reported separately. Moderate levoscoliosis of the lumbar spine is noted. Vertebral body heights are maintained. There is no fracture or suspicious lesion by CT. P aravertebral soft tissues are unremarkable. The central canal and neural foramen are suboptimally assessed by CT. There is severe multilevel facet arthrosis and moderate multilevel degenerative disc disease within the lumbar spine. Facet joints are intact. Sacroiliac joints are intact. IMPRESSION: 1. No acute lumbar spine fracture or subluxation. 2. Moderate levoscoliosis of the lumbar spine. 3. Severe multilevel facet arthrosis. Moderate multilevel degenerative disc disease within the lumbar spine. Suboptimal evaluation of the central canal and neural foramen given CT technique. ACT 112: Negative or not required by law. Electronically signed by: Ketan Mejía M.D. 09/29/2019 2:57 PM ECG Data Attestation: I personally reviewed and interpreted this ECG as follows: Indication: + weakness Rate (beats per minute): 78 Rhythm: + normal sinus ECG Cameron: + Normal ECG ST segments: no ST depression and no ST elevation ECG Findings: no PVCs Blood Pressure Blood Pressure Findings: Elevated blood pressure Blood Pressure Disposition: further management by hospitalist ELVI Narrative Patient is a 74-year-old female with a past medical history of hypertension, GERD, kidney stones, migraine, thrombocytopenia presenting today with complaint of continued migraine over the past week as well as some nausea vomiting and lumbar back pain. Seen here several days ago. I did review the prior records. Receives morphine and Zofran in route with some relief. Utilized her Vicodin at home for back pain but now is all gone. Lower back pain rating to the bilateral hips. No new trauma reported. Afebrile here. Vitals are remarkable only for mild hypertension. CT the head is complete and basic laboratory studies were sent. Low suspicion this represents acute meningitis as she has no significant neck symptoms. Patient does have scoliosis. Some mild to moderate bilateral gluteal tenderness. Patient states he been able to ambulate at home and she lives alone. Migraine x1 week she says it is longer than any before. CT the head was complete exclude other acute intracranial abnormalities. CT the abdomen pelvis as well as lumbar area was completed given her nausea and pain complaints in this lower area. EKG and troponin completed lower suspicion is ACS. Doubt PE or dissection. Given some Toradol as well as Compazine and Benadryl here to help with symptoms in the meantime. CT the head with out significant is question of some sinus disease although the patient has some questionable symptoms. Mild improvement of headache. Still having back pain and not been able to ambulate. Severe scoliosis degenerative changes. Not having any colitis symptoms. Given some additional IV Tylenol and fentanyl here but as she lives alone and daughter later arrives reports that she is had some transient hallucinations with the pain medicines is not stable to go home. Discussed with the hospitalist for further care and pain control of back pain. Impression & Plan Headache, Back pain, Hallucinations Discharge Plan Visit Data *Final* Discharge Date/Time: 09/29/19 18:13 Chief Complaint: Back Injury/Pain Stated Complaint: back pain/ migraine ED Provider: Tony Diane Discharge Problem: Headache, Back pain, Hallucinations Patient Disposition: Admitted As Inpatient Discharge Instructions Interventions: ED Discharge Assessment Last Done: 09/29/19 18:13 The scribe's documentation has been prepared under my direction and personally reviewed by me in its entirety. I confirm that the note above accurately refl ects all work, treatment, procedures, and medical decision making performed by me.
[2019-09-29] MEDS ORDERED: DEXAMETHASONE SOD PHOSPHATE 6 MG in SYRINGE 0 ML IV SCH (20:00)
[2019-09-29] MEDS: KETOROLAC TROMETHAMINE 15 MG/ML VIAL IV SCH (20:17)
[2019-09-29] MEDS: AMOXICILLIN/CLAVULANATE 875 MG TAB PO SCH (20:17)
[2019-09-29] MEDS: AMITRIPTYLINE HCL 25 MG TAB PO SCH (20:18)
[2019-09-29] MEDS: DEXAMETHASONE SOD PHOSPHATE 8 MG in SYRINGE 0 ML IV SCH (20:18)
[2019-09-29] MEDS: MoRPHine SULFATE 4 MG/ML 1 ML CARP\\VIAL IV PRN (20:31)
[2019-09-30] MEDS: DEXAMETHASONE SOD PHOSPHATE 8 MG in SYRINGE 0 ML IV SCH ×4 (02:48→20:39)
[2019-09-30] MEDS: KETOROLAC TROMETHAMINE 15 MG/ML VIAL IV SCH ×3 (02:48→13:57)
[2019-09-30] MEDS: ACETAMINOPHEN 325 MG TAB PO PRN ×3 (03:57→21:25)
[2019-09-30] MEDS: MoRPHine SULFATE 4 MG/ML 1 ML CARP\\VIAL IV PRN (05:11)
[2019-09-30 06:05] LABS: Hematocrit (blood only) 34.9 % (37-47); Hemoglobin 11.6 g/dL (12.0-16.0); Mean Corpuscular Hemoglobin 29.6 pg (25-34); Mean Corpuscular Hgb Conc 33.2 g/dL (32-36); Mean Platelet Volume 12.5 fL (7.4-10.4); Platelet Count 80 K/uL (130-400); RDW Coefficient of Variation 14.8 % (11.5-14.5); RDW Standard Deviation 48.1 fL (36.4-46.3); Red Blood Count 3.92 M/uL (4.2-5.4); White Blood Count 8.19 K/uL (4.8-10.8)
[2019-09-30 06:21] LABS: BUN Creatinine Ratio 24.8 (10-20); Calcium 8.7 mg/dl (8.5-10.1); Creatinine Clr Calc Pharmacy 52.7 ml/min; Est GFR (African American) 65.2; Est GFR (Non-African American) 56.2; Potassium 3.7 mmol/L (3.5-5.1)
[2019-09-30] MEDS: AMOXICILLIN/CLAVULANATE 875 MG TAB PO SCH ×2 (07:35→17:56)
[2019-09-30] MEDS ORDERED: LISINOPRIL/HCTZ 20/25MG 1 TAB PO SCH (09:00)
--- NOTE | 2019-09-30 09:32 | Orthopedic Consultation ---
Date of Consultation September 30, 2019 Assessment & Plan (1) Chronic SI joint pain: Images: Severe degenerative scoliosis of the lumbar spine. Significant facet joint arthroses. Some sacroiliac inflammatory processes Laboratory data: Slightly anemic Assessment: Degenerative scoliosis of the spine. Sacroiliac joint inflammatory process. Plan: This is essentially a nonsurgical problem although a very difficult problem. Pain control will not be easy gating is under control will be d ifficult. I gave recommendations for IV steroids which I think are appropriate to keep with the dexamethasone for a few days. Toradol is also a good anti- inflammatory agent. I would recommend pain management to get him off for their expertise. Possibly some injection techniques may be helpful as an outpatient. I will continue to follow the patient History of Present Illness Reason for Consultation: Reason for consultation: Lumbar spine difficulty and bilateral sacroiliac difficulties inability. Difficulty with pain control and ambulatory status History Tabitha is 74 years of age with a very difficult problem on her hands. It is generally speaking a nonoperative situation. She was doing pretty well up until about 4 weeks ago according to her history this morning she developed some back pain sacroiliac discomfort that was severe enough she had to make a trip to the emergency room for evaluation and treatment. Was sent home on some narcotics which made her confused. Return to the emergency room yesterday 29 September. I was consulted at that time approximately 4:00 in the afternoon. Patient seems to be appropriate historian she is well aware she has a ongoing scoliotic curvature. No history of trauma. No significant recent illnesses Attending Physician: Chato Junior MD Allergies Allergy/AdvReac Type Severity Reaction Status Date / Time No Known Allergies Allergy Verified 09/29/19 14:06 Home Medications Home Medications Medication Instructions Recorded Confirmed Type Calcium 600 + D(3) 1 cap PO BID 03/09/19 09/29/19 History amitriptyline 25 mg PO HS 03/09/19 09/29/19 History ascorbic acid (vitamin C) [Vitamin 1 g PO QAM 03/09/19 09/29/19 History C] cholecalciferol (vitamin D3) 2,000 unit PO QAM 03/09/19 09/29/19 History [Vitamin D3] cyanocobalamin (vitamin B-12) 1,000 mcg PO QAM 03/09/19 09/29/19 History [Vitamin B-12] esomeprazole magnesium [Nexium] 40 mg PO QAM 03/09/19 09/29/19 History lisinopril-hydrochlorothiazide 2 tab PO QAM 03/09/19 09/29/19 History [Zestoretic] lutein-zeaxanthin 1 cap PO QAM 03/09/19 09/29/19 History meclizine 25 mg PO DAILY PRN 03/09/19 09/29/19 History meloxicam 15 mg PO QAM 03/09/19 09/29/19 History metoprolol succinate [Toprol XL] 100 mg PO QAM 03/09/19 09/29/19 History multivitamin 1 tab PO QAM 03/09/19 09/29/19 History sumatriptan succinate [Imitrex] 50 mg PO DAILY PRN 03/09/19 09/29/19 History turmeric root extract 2,000 mg PO HS 03/09/19 09/29/19 History acetaminophen [Tylenol Extra 500 mg PO Q6H PRN 09/29/19 09/29/19 History Strength] hydrocodone-acetaminophen [Vicodin 1 tab PO HS PRN 09/29/19 09/29/19 History HP] Patient History Medical History Chronic back pain Fatty liver disease, nonalcoholic GERD (gastroesophageal reflux disease) Hypertension Kidney stones Migraine Obesity Osteoarthritis Scoliosis Thrombocytopenia Surgical History History of colonoscopy History of esophagogastroduodenoscopy (EGD) History of left knee replacement History of tonsillectomy S/P epidural steroid injection s/p right sacroiliac injection (03/07/19) S/P PITO-BSO Family History Mother Cervical cancer Family history of diabetes mellitus, Onset Age: 80 Brother Family history of esophageal cancer, Onset Age: 61 Social History Preferred Language: Monegasque Communication Ability: Effective Internal Controls Manager Required: No Beliefs That Will Affect Care: None marital status: Current Living Situation: Alone Other Information That Helps Us Care for You: No Feels Safe at Home: Yes Safety Concerns: Feels Safe At This Time Smoking Status: Never smoker Second Hand Exposure: No ; Hx Alcohol Use: Yes Alcohol type: wine Hx Substance Use: No Review of Systems Review of Systems: Denies any fever sweats chills weight loss gain No apparent tumor or cancer history Denies chest pain shortness of breath No nausea vomiting or referred pain from the abdominal area to the lumbar spine Denies skin issues such as zoster Nor neurological deficits She appears to be alert oriented non-confused and nondepressed Physical Exam Physical Exam: Vital signs stable including afebrile HEENT examination essentially normal Lungs were clear to auscultation cardiac rate normal about 80 bpm and regular Skin integumentary intact no adenopathy No neurological deficit with adequate motor strength in extremities with good motor strength sensory reflex examination normal She has musculoskeletal back pain bar spine but definitely in the sacroiliac joints. Her skin integumentary is normal. Her pain is nonradicular. There is no tension signs there is no deficits Results & Data ([facility]) Vital Signs (Past 12 Hours) Vital Signs Temp Pulse Resp BP Pulse Ox 09/30/19 08:02 36.5 C 74 16 143/73 H 95 09/30/19 00:25 37.5 C 09/29/19 23:45 37.7 C H 89 18 109/52 L 92 PG Care Time/CCT Total # of Minutes Spent Total Time Spent with Patient: Total time spent is greater than 50% in coordination of care (as documented) at patient's floor/unit and/or counseling patient: Coding Level of Care Code 16843 Initial Inpt Care Lvl 2 Diagnoses Chronic SI joint pain M53.3; G89.29
[2019-09-30] MEDS: METOPROLOL SUCC 50MG EXT REL TAB PO SCH (09:40)
[2019-09-30] MEDS: PANTOprazole 40 MG TAB PO SCH (09:40)
[2019-09-30] MEDS: MULTIVITAMIN TAB PO SCH (09:40)
--- NOTE | 2019-09-30 17:17 | Hospitalist Progress Note ---
Date of Service September 30, 2019 Assessment & Plan (1) Intractable back pain: -Patient presenting from home with reports of intractable low back/SI joint pain and hallucinations -Seen in the ED on 09/27 and discharged home on Gardner -Patient reports continued pain despite use of Gardner -CT lumbar spine in the ED showing severe multilevel facet arthrosis. Moderate multilevel degenerative disc disease within the lumbar spine. -Both SI joints tender to palpation, patient may benefit from SI joint injection -Spine Ortho consult, case discussed with Dr. 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 She also says that she has some right frontal headache, and for her it feels like shingles (which she had before), however there is no rash eruption. Patient currently denies any fevers, chills, chest pain, shortness of breath, dental pain, nausea or vomiting. Ortho was consulted, recommended dexamethasone, Toradol, and pain management consult. Review of Systems Review of Systems: All systems reviewed & are unremarkable except as noted in HPI & below Constitutional: no fever and no chills Respiratory: no cough and no dyspnea Cardiovascular: no chest pain, no palpitations and no edema Gastrointestinal: no abdominal pain, no nausea and no vomiting Musculoskeletal: + back pain (chronic but now worsened) Neurologic: + headache(s) (R frontal) Physical Exam Physical Exam: Constitutional: Elderly female, laying flat on her back in bed, currently in no acute distress Eyes: PERRL, EOMI, conjunctivae normal, anicteric sclerae ENMT: external ear and nose normal, oropharynx normal Respiratory: normal respiratory effort, lungs clear to auscultation Cardiovascular: Rate/Rhythm: regular rate and regular rhythm Vessels: normal peripheral pulses Extremities: no edema Gastrointestinal (Abdomen): normal bowel sounds, soft, nontender, obese, nondistended Musculoskeletal: no cyanosis or clubbing, moves all 4 extremities spontaneously, spine: + sacroiliac joint abnormality (Tenderness over both SI joints) Skin: no rashes, warm and dry Neurologic: PERRL, EOMI, accommodation nl, no face palsy, no dysarthria, moves all 4 extremities Psychiatric: A+Ox3, euthymic affect Results & Data ([facility]) Vital Signs (Past 12 Hours) Vital Signs Temp Pulse Resp BP Pulse Ox 09/30/19 15:06 37.0 C 73 16 149/76 H 92 09/30/19 08:02 36.5 C 74 16 143/73 H 95 Laboratory Results 09/30/19 09/30/19 09/29/19 Range/Units 05:16 05:16 18:32 WBC 8.19 (4.8-10.8) K/uL RBC 3.92 L (4.2-5.4) M/uL Hgb 11.6 L (12.0-16.0) g/dL Hct 34.9 L (37-47) % MCV 89.0 (80-100) fL MCH 29.6 (25-34) pg MCHC 33.2 (32-36) g/dL RDW Std Deviation 48.1 H (36.4-46.3) fL RDW Coeff of Lucie 14.8 H (11.5-14.5) % Plt Count 80 L (130-400) K/uL MPV 12.5 H (7.4-10.4) fL Sodium 130 L (136-145) mmol/L Potassium 3.7 (3.5-5.1) mmol/L Chloride 95 L (98-107) mmol/L Carbon Dioxide 30 (21-32) mmol/L Anion Gap 5.0 (3-11) BUN 25 H (7-18) mg/dl Creatinine 1.00 (0.6-1.2) mg/dl Est Cr Clr Drug Dosing 52.7 ml/min Est GFR ( Amer) 65.2 Est GFR (Non-Af Amer) 56.2 BUN/Creatinine Ratio 24.8 H (10-20) Glucose 209 H (70-99) mg/dl Calcium 8.7 (8.5-10.1) mg/dl Urine Color Katie Urine Appearance Clear (Clear) Urine pH 6.0 (4.5-7.5) Ur Specific Fischer > 1.045 H (1.000-1.030) Urine Protein Trace H (Negative) Urine Glucose (UA) Negative (Negative) Urine Ketones Negative (Negative) Urine Blood Negative (Negative) Urine Nitrite Positive A (Negative) Urine Bilirubin Negative (Negative) Urine Urobilinogen Negative (Negative) Ur Leukocyte Esterase Negative (Negative) Urine WBC (Auto) 1-5 (0-5) /hpf Urine RBC (Auto) 0-4 (0-4) /hpf U Hyaline Cast (Auto) 1-5 (0-5) /lpf U Epithel Cells (Auto) >30 H (0-5) /lpf Urine Bacteria (Auto) 1+ H (Negative) Urine Mucus Present A (None Prsent) Medications Administered Current Inpatient Medications Acetaminophen (Tylenol) 650 mg PO Q4H PRN PRN Reason: pain/fever Stop: 10/29/19 18:28 Last Admin: 09/30/19 03:57 Dose: 650 mg Documented by: Amitriptyline HCl (Elavil) 25 mg PO HS [facility] Stop: 10/29/19 20:59 Last Admin: 09/29/19 20:18 Dose: 25 mg Documented by: Amoxicillin/Clavulanate Potassium (Augmentin 875mg) 1 tab PO BIDM [facility] Stop: 10/06/19 19:59 Last Admin: 09/30/19 07:35 Dose: 1 tab Documented by: Lisinopril/HCTZ (Prinzide 20/25mg) 2 tab PO QAM [facility] Stop: 10/30/19 08:59 Last Admin: 09/30/19 09:40 Dose: 2 tab Documented by: Dexamethasone Sodium Phosphate (8 mg/ Syringe) 2 mls @ 1 mls/min IV Q6H [facility] Stop: 10/01/19 02:01 Last Admin: 09/30/19 13:57 Dose: 1 mls/min Documented by: Metoprolol Succinate (Toprol Xl) 100 mg PO [facility] Stop: 10/30/19 08:59 Last Admin: 09/30/19 09:40 Dose: 100 mg Documented by: Morphine Sulfate (Morphine Sulfate) 4 mg IV Q6H PRN PRN Reason: Severe Pain Stop: 10/13/19 18:28 Last Admin: 09/30/19 05:11 Dose: 4 mg Documented by: Multivitamins (Multivitamin Tab) 1 tab PO [facility] Stop: 10/30/19 08:59 Last Admin: 09/30/19 09:40 Dose: 1 tab Documented by: Pantoprazole Sodium (Protonix) 40 mg PO [facility] Stop: 10/30/19 08:59 Last Admin: 09/30/19 09:40 Dose: 40 mg Documented by:
[2019-09-30] MEDS: AMITRIPTYLINE HCL 25 MG TAB PO SCH (20:38)
[2019-09-30] MEDS ORDERED: KETOROLAC TROMETHAMINE 15 MG/ML VIAL IV PRN (21:22)
[2019-09-30] MEDS ORDERED: KETOROLAC TROMETHAMINE 15 MG/ML VIAL IV ONE (21:22)
[2019-09-30] MEDS ORDERED: OXYCODONE HCL IR 5 MG TAB (IMMEDIATE RELEASE) PO PRN (21:25)
[2019-09-30] MEDS ORDERED: NSS + 20MEQ KCL 20 MEQ/1,000 ML BAG IV SCH (21:30)
[2019-10-01] MEDS: DEXAMETHASONE SOD PHOSPHATE 8 MG in SYRINGE 0 ML IV SCH (02:54)
[2019-10-01] MEDS: ACETAMINOPHEN 325 MG TAB PO PRN (06:58)
[2019-10-01] MEDS: AMOXICILLIN/CLAVULANATE 875 MG TAB PO SCH ×2 (07:38→17:15)
[2019-10-01] MEDS ORDERED: DICLOFENAC SOD 1% GEL 100 GM TUBE EXT ONE (09:46)
[2019-10-01] MEDS: lisinopriL 40 MG TAB PO SCH (09:51)
[2019-10-01] MEDS: PANTOprazole 40 MG TAB PO SCH (09:52)
[2019-10-01] MEDS: MULTIVITAMIN TAB PO SCH (09:52)
[2019-10-01] MEDS: METOPROLOL SUCC 50MG EXT REL TAB PO SCH (09:52)
--- NOTE | 2019-10-01 10:03 | Pain Management Consultation ---
Date of Consultation October 01, 2019 Assessment & Plan (1) Chronic SI joint pain: 1. Recommend patient continue to utilize her heel lift and follow-up with her primary pain physician [facility] pain management (Dr. Rider?) As an outpatient for consideration of repeat sacroiliac joint injections. Would advocate for resolution of acute sinusitis prior to consideration of injection. There is no need for her to follow-up at our outpatient office due to already having a pain physician. 2. Recommend conversion from oxycodone to Nucynta 50 mg p.o. every 4 as needed pain. Hopefully this will provide less hallucinations and other side effects. Risks and benefits and side effects were discussed with the patient. Orders are written. 3. Recommend utilization of Voltaren gel over bilateral sacroiliac joint injections for augmentation of pain relief. 4. Recommend continuation of amitriptyline to augment descending pain regulation. 5. We spoke for approximately 10 minutes on proper sleep mechanics, utilization of heel lift, how to properly get out of bed with sacroiliac joint pain at today's visit. 6. Thank you very much for this consultation. (2) Acute sinusitis: (3) Intractable back pain: (4) Thrombocytopenia: (5) History of left knee replacement: (6) Acquired leg length discrepancy: History of Present Illness Reason for Consultation: Sacroiliac joint pain Attending Physician: Chato Junior MD History of Present Illness 74-year-old female admitted with intractable low back pain and bilateral sacroiliac joint pain right greater than left radiating into the right groin. The patient notes that she has had difficulty with her sacroiliac joints since her left total knee replacement in February 2019 which resulted in a leg length discrepancy. She reports that she follows with lucia hwang pain management who diagnosed her with a leg length discrepancy. She has an appropriate sized heel lift which she wears a majority of the time. She previously utilized heat, ice, rest, Lidoderm patches with minimal relief. Subsequent to that she had a sacroiliac joint injection (left?) Performed late July 2019 with excellent relief of pain for 2-1/2 weeks. Unfortunately she admits that she fell approximately mid August and has had pain since that time. She presented to the [facility] emergency room 09/27/2019 and was prescribed hydrocodone and discharged. Unfortunately she experienced hallucinations with hydrocodone and provided minimal pain relief. She does 3 presented to the emergency room and has been utilizing IV morphine and oxycodone for pain relief. She finds she has hallucinations with both of these medications though not to the degree of that with hydrocodone. Unfortunately she finds IV morphine and oxycodone to provide minimal relief at this time. Pain is over her axial lumbar spine as well as over bilateral sacroiliac joints with radiation into the groin characterizes sharp stabbing and shooting. Pain ranges between 0 and 5 out of 10 currently 4 out of 10. She has been able to perform ambulation but has utilized a walker for assistance. She reports she feels overall deconditioned and " more dependent on others" for activities of [place]. She denies any bowel or bladder incontinence, motor weakness, footdrop, falls, night sweats, chills. She was diagnosed with acute sinusitis this infection and initiated on Augmentin. Pain Assessment Full Body Front + Back: 1. 2. Allergies Allergy/AdvReac Type Severity Reaction Status Date / Time No Known Allergies Allergy Verified 09/29/19 14:06 Home Medications Home Medications Medication Instructions Recorded Confirmed Type Calcium 600 + D(3) 1 cap PO BID 03/09/19 09/29/19 History amitriptyline 25 mg PO HS 03/09/19 09/29/19 History ascorbic acid (vitamin C) [Vitamin 1 g PO QAM 03/09/19 09/29/19 History C] cholecalciferol (vitamin D3) 2,000 unit PO QAM 03/09/19 09/29/19 History [Vitamin D3] cyanocobalamin (vitamin B-12) 1,000 mcg PO QAM 03/09/19 09/29/19 History [Vitamin B-12] esomeprazole magnesium [Nexium] 40 mg PO QAM 03/09/19 09/29/19 History lisinopril-hydrochlorothiazide 2 tab PO QAM 03/09/19 09/29/19 History [Zestoretic] lutein-zeaxanthin 1 cap PO QAM 03/09/19 09/29/19 History meclizine 25 mg PO DAILY PRN 03/09/19 09/29/19 History meloxicam 15 mg PO QAM 03/09/19 09/29/19 History metoprolol succinate [Toprol XL] 100 mg PO QAM 03/09/19 09/29/19 History multivitamin 1 tab PO QAM 03/09/19 09/29/19 History sumatriptan succinate [Imitrex] 50 mg PO DAILY PRN 03/09/19 09/29/19 History turmeric root extract 2,000 mg PO HS 03/09/19 09/29/19 History acetaminophen [Tylenol Extra 500 mg PO Q6H PRN 09/29/19 09/29/19 History Strength] hydrocodone-acetaminophen [Vicodin 1 tab PO HS PRN 09/29/19 09/29/19 History HP] Patient History Medical History (Updated 10/01/19 @ 10:01 by Ashwini Webb DO) Acquired leg length discrepancy Per patient formal leg length films were performed as an outpatient with a 1.5 inch leg length discrepancy after TKA. Chronic back pain Fatty liver disease, nonalcoholic GERD (gastroesophageal reflux disease) Hypertension Kidney stones Migraine Obesity Osteoarthritis Scoliosis Thrombocytopenia Surgical History History of colonoscopy History of esophagogastroduodenoscopy (EGD) History of left knee replacement History of tonsillectomy S/P epidural steroid injection s/p right sacroiliac injection (03/07/19) S/P PITO-BSO Family History Mother Cervical cancer Family history of diabetes mellitus, Onset Age: 80 Brother Family history of esophageal cancer, Onset Age: 61 Social History Preferred Language: Brazilian Communication Ability: Effective Steward/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 Pleasant and cooperative on examination today. Psych: Awake, alert, and oriented 3 with normal affect and mood. Recent memory appears grossly intact Eyes: Pupils are equally round and reactive to light with normal size pupils, eyelids appear normal Ear, nose, mouth, and throat: Moist nasal and oral membranes, lips and tongues appear normal, no external ear abnormalities are noted Neck: The trachea is midline without deviation and no thyromegaly is noted Respiratory: Normal respiratory effort without distress, no audible wheezes or rhonchi CV: Normal S1 and S2 Chest: Deferred GI/abdomen: Non-tender without guarding, soft, protuberant Musculoskeletal: Head is normocephalic and atraumatic, gait is not observed. Patient is able to logroll in bed with mild difficulty. Cervical: Lordotic curve: Normal Range of motion is normal with extension, flexion, side-bending, rotation Strength: Strength is grossly equal bilaterally with 5 out of 5 strength in all planes Sensation of upper extremities: Intact bilaterally Thoracic: Kyphotic curve: Normal Range of motion is normal with extension, flexion, side-bending, rotation Lumbar: Lordotic curve: Slight decreased lumbar lordosis Range of motion is decreased in all pain secondary to pain and body habitus Tenderness: Moderately tender over the axial midline from L4-S1 equal bilaterally Facet provocation: Marginally positive bilaterally Straight leg raise: Negative bilaterally Step-off injuries: None Strength: Strength is equal bilaterally with 5 out of 5 strength in all planes Sensation of lower extremities: Intact bilaterally Deep tendon reflexes: Rated at 1+ in bilateral L4 and S1 (not present over left L4 secondary to TKA) Myofascial spasm: No appreciable spasm. No discrete trigger points noted Greater trochanters: Moderately tender bilaterally Sacroiliac joints: Exquisitely tender bilaterally Thigh thrust, Fabere and Gaenslens: Positive bilaterally (modified Allyson on left) Pathologic reflexes noted: None Skin: No rashes, lesions, ulcers, or induration noted Neuro: No nystagmus noted, the tongue is midline, the patient is able to rotate their head bilaterally : Deferred Results Diagnostic Review CT: reports reviewed and findings discussed with patient CT Findings: Reviewed abdominal pelvis CT, head CT, lumbar spine CT from 09/29/2019. Please see diagnostic section for further details. Severe multilevel lumbar spinal stenosis noted as well as acute sinusitis Radiology: reports reviewed and findings discussed with patient Radiology Findings: Lumbar spine x-ray from 09/27/2019 [facility] Previous Records Review Previous Records: personally reviewed by me Opioid Risk Assessment Opioid Risk Assessment: risk assessment performed and minimal risk identified
[2019-10-01] MEDS: TAPENTADOL HCL 50 MG TAB PO PRN ×2 (15:54→23:58)
[2019-10-01] MEDS: SACCHAROMYCES BOULARDII 250 MG CAP PO SCH (17:15)
[2019-10-01] MEDS: AMITRIPTYLINE HCL 25 MG TAB PO SCH (20:28)
[2019-10-01] MEDS: DICLOFENAC SOD 1% GEL 100 GM TUBE EXT SCH (20:28)
[2019-10-02 06:08] LABS: Calcium 8.9 mg/dl (8.5-10.1); Creatinine Clr Calc Pharmacy 81.1 ml/min; Est GFR (African American) 102.8; Est GFR (Non-African American) 88.7; Magnesium 1.6 mg/dl (1.8-2.4); Potassium 3.9 mmol/L (3.5-5.1)
--- NOTE | 2019-10-02 07:22 | Hospitalist Progress Note ---
Date of Service October 01, 2019 Assessment & Plan (1) Intractable back pain: -Patient presenting from home with reports of intractable low back/SI joint pain and hallucinations -Seen in the ED on 09/27 and discharged home on [place] -Patient reports continued pain despite use of [place] -CT lumbar spine in the ED showing severe multilevel facet arthrosis. Moderate multilevel degenerative disc disease within the lumbar spine. -Both SI joints tender to palpation, patient may benefit from SI joint injection -Spine Ortho consult, case discussed with Dr. Philip; starting Decadron 8 mg every 6 hours and Toradol 15 mg every 6 hours -PT/OT -Patient seen by Ortho today - recommend pain management consult, as her condition is difficult to treat and nonoperable -Patient seen by pain management (Dr. Webb) and pain medications were adjusted, as outpatient patient actually follows up with pain management in [place]. (2) Hallucinations: -on admission believed to be secondary to [place] -Head CT negative for acute intracranial findings -Patient states today, that she has been having hallucinations for the past 2 to 3 weeks, she says that at that time she was not using any pain medications, she also reports some visual changes incidents, one about 2 weeks ago, and the other one about 1 month ago, she was supposed to see her eye doctor, on Wednesday however she was admitted here due to pain -We will discuss this with neurology, appreciate their input (3) Acute sinusitis: -A few days ago, patient had fever and URI type symptoms -Findings of acute sinusitis noted on head CT -Started Augmentin , will cont. 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 Pt's daughter lives in [place], and is worried because she feels that patient is not safe at home, given these new hallucinations. Will contact CM to discuss further, possible home health. Subjective Patient is sitting in a chair, in no acute distress. First she wanted to go home today however now her daughter is sitting at the bedside, and she is concerned about her hallucinations. The patient is not safe to be home by herself. Daughter lives in [place]. After further discussion, patient reports that she actually has been having hallucinations for past 2 to 3 weeks. On admission it seemed like hallucinations were new and likely secondary to her pain medications. Patient reports visual hallucinations, currently is I am standing in the room, she says that she sees spiders crawling on the back wall behind me. She denies any auditory hallucinations. She also reports change in vision 1 incident about a month ago and another incident about 2 weeks ago. She was supposed to see her eye doctor on Wednesday, but she was admitted here due to pain. Discussed possible home health, asked CM to come talk to the patient and her daughter while she is still here. Patient otherwise denies any fevers, chills, chest pain, shortness of breath, abdominal pain, nausea or vomiting. Patient seen by pain management here (Dr. Webb) and pain medications were adjusted, as outpatient patient actually follows up with pain management in [place]. Review of Systems Review of Systems: All systems reviewed & are unremarkable except as noted in HPI & below ROS per HPI, all other systems reviewed and negative Constitutional: no fever and no chills Respiratory: no cough and no dyspnea Cardiovascular: no chest pain, no palpitations and no edema Gastrointestinal: no abdominal pain, no nausea and no vomiting Musculoskeletal: + back pain (chronic but now worsened) Psychiatric: + hallucinations and + visual hallucinations Physical Exam Physical Exam: Constitutional: Elderly female, sitting up in the chair, currently in no acute distress Eyes: PERRL, EOMI, conjunctivae normal, anicteric sclerae ENMT: external ear and nose normal, oropharynx normal Respiratory: normal respiratory effort, lungs clear to auscultation Cardiovascular: Rate/Rhythm: regular rate and regular rhythm Vessels: normal peripheral pulses Extremities: no edema Gastrointestinal (Abdomen): normal bowel sounds, soft, nontender, obese, nondistended Musculoskeletal: no cyanosis or clubbing, moves all 4 extremities spontaneously, spine: + sacroiliac joint abnormality (Tenderness over both SI joints) Skin: no rashes, warm and dry Neurologic: PERRL, EOMI, accommodation nl, no face palsy, no dysarthria, moves all 4 extremities Psychiatric: A+Ox3, euthymic affect Results & Data ([facility]) Vital Signs (Past 12 Hours) Vital Signs Temp Pulse Resp BP Pulse Ox 10/02/19 07:00 37.3 C 88 16 186/93 H 93 10/01/19 23:36 37.2 C 72 18 151/81 H 93 Laboratory Results reviewed
[2019-10-02] MEDS: METOPROLOL SUCC 50MG EXT REL TAB PO SCH (07:46)
[2019-10-02] MEDS: lisinopriL 40 MG TAB PO SCH (07:47)
[2019-10-02] MEDS: TAPENTADOL HCL 50 MG TAB PO PRN (07:58)
[2019-10-02] MEDS: DICLOFENAC SOD 1% GEL 100 GM TUBE EXT SCH ×2 (08:45→22:39)
--- NOTE | 2019-10-02 09:31 | Hospitalist Progress Note ---
Date of Service October 02, 2019 Assessment & Plan (1) Intractable back pain: -Patient presenting from home with reports of intractable low back/SI joint pain and hallucinations -Seen in the ED on 09/27 and discharged home on [place] -Patient reports continued pain despite use of [place] -CT lumbar spine in the ED showing severe multilevel facet arthrosis. Moderate multilevel degenerative disc disease within the lumbar spine. -Both SI joints tender to palpation, patient may benefit from SI joint injection -Spine Ortho consult, case discussed with Dr. Philip; starting Decadron 8 mg every 6 hours and Toradol 15 mg every 6 hours -PT/OT -Patient seen by Orthopedics - recommend pain management consult, as her condition is difficult to treat and nonoperable -Patient seen by pain management (Dr. Webb) and pain medications were adjusted - pt was started on PO Nucynta and topical voltaren gel, as outpatient patient, pt follows up with pain management in [place]. -Today (10/02), pt is actually drowsy, will not open her eyes unless prompted several times, very restless, moving out of bed - this is quite different from yesterday. She appears uncomfortable and keeps holding her left hip. - will hold Nucynta as possibly her current state is secondary to a new medication. Pt has not been eating today, will give her gentle hydration. Will give her dexamethasone to see if we can control the pain better. (2) Hallucinations: -on admission believed to be secondary to [place] -Head CT negative for acute intracranial findings -Patient said yesterday that she has been having hallucinations for the past 2 to 3 weeks, seems as she was not using any pain medications, she also reports some visual changes- 2 incidents - one about 2 weeks ago, and the other one about 1 month ago, she was supposed to see her eye doctor, on Wednesday however she was admitted here due to pain -We will discuss this with neurology, appreciate their input (3) Acute sinusitis: -A few days ago, patient had fever and URI type symptoms -Findings of acute sinusitis noted on head CT -Started Augmentin , will cont. 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 Pt's daughter lives in [place], and is worried because she feels that patient is not safe at home, given these new hallucinations. CM contacted to discuss further, possible home health. Subjective Today pt appears very uncomfortable and does not open her eyes unless prompted several times. She is restless, constantly moving, trying to get out of bed. Obviously she is trying to find more comfortable position. However she does not talk much and appears drowsy. Daughters also says that she texted her last night, asking where pt's was - daughter says that he . ROS can not be obtained at this time. Neurology was consulted earlier today regarding her hallucinations. Review of Systems Review of Systems: Unobtainable due to cognitive status Physical Exam Physical Exam: Constitutional: Elderly female, laying in bed, restless, drowsy and uncomfortable Eyes: PERRL ENMT: external ear and nose normal, oropharynx normal Respiratory: normal respiratory effort, lungs clear to auscultation Cardiovascular: Rate/Rhythm: regular rate and regular rhythm Vessels: normal peripheral pulses Extremities: no edema Gastrointestinal (Abdomen): normal bowel sounds, soft, nontender, obese, nondistended Musculoskeletal: no cyanosis or clubbing, moves all 4 extremities spontaneously, spine: + sacroiliac joint abnormality (Tenderness over both SI joints) Skin: no rashes, warm and dry Neurologic: PERRL, EOMI, accommodation nl, no face palsy, speech is slow, moves all 4 extremities Psychiatric: drowsy but arousable, restless Results & Data ([facility]) Vital Signs (Past 12 Hours) Vital Signs Temp Pulse Resp BP BP Pulse Ox 10/02/19 07:41 91 H 173/92 H 10/02/19 07:00 37.3 C 88 16 186/93 H 93 10/01/19 23:36 37.2 C 72 18 151/81 H 93 Laboratory Results 10/02/19 Range/Units 05:11 Sodium 134 L (136-145) mmol/L Potassium 3.9 (3.5-5.1) mmol/L Chloride 98 (98-107) mmol/L Carbon Dioxide 29 (21-32) mmol/L Anion Gap 7.0 (3-11) BUN 24 H (7-18) mg/dl Creatinine 0.65 D (0.6-1.2) mg/dl Est Cr Clr Drug Dosing 81.1 ml/min Est GFR ( Amer) 102.8 Est GFR (Non-Af Amer) 88.7 Fasting Glucose 143 H (70-99) mg/dl Calcium 8.9 (8.5-10.1) mg/dl Magnesium 1.6 L (1.8-2.4) mg/dl
[2019-10-02] MEDS: AMOXICILLIN/CLAVULANATE 875 MG TAB PO SCH ×2 (09:39→17:43)
[2019-10-02] MEDS: SACCHAROMYCES BOULARDII 250 MG CAP PO SCH (09:39)
[2019-10-02] MEDS: PANTOprazole 40 MG TAB PO SCH (09:40)
[2019-10-02] MEDS: MULTIVITAMIN TAB PO SCH (09:40)
[2019-10-02] MEDS: MAGNESIUM SULFATE / D5W 1 GM/100 ML BAG IV SCH ×2 (09:55→10:56)
[2019-10-02] MEDS: SODIUM CHLORIDE 0.9% 1000ML 1,000 ML IV SCH (13:38)
[2019-10-02] MEDS ORDERED: DEXAMETHASONE SOD PHOSPHATE 4 MG in SYRINGE 0 ML IV ONE (13:45)
[2019-10-02] MEDS: ACETAMINOPHEN 500 MG TAB PO SCH ×2 (14:00→22:39)
[2019-10-02 14:26] LABS: Appearance Urine Clear (Clear); Bilirubin Urine Negative (Negative); Blood Urine Negative (Negative); Color Urine Dark Yellow; Glucose Urine UA Negative (Negative); Ketones Urine Negative (Negative); Leukocyte Esterase Urine Negative (Negative); Nitrite Urine Negative (Negative); Protein Urine Negative (Negative); Specific Gravity Urine 1.024 (1.000-1.030); Urobilinogen Urine Negative (Negative)
--- NOTE | 2019-10-02 14:49 | Neurology Consultation ---
Date of Consultation October 02, 2019 Assessment & Plan (1) Hallucinations: 1. CT lumbar spine- may need L spine MRI if able to tolerate 2. CT head- sinus disease- on antibiotics 3. limit narcotics and any sedation medication that can cause confusion and hallucinations 4. NSAIDS - as ordered 5. MRI brain and spine L/T - when able to tolerate 6. orthopedics- no intervention planned 7. pain mgt for none narcotic pain mgt currently on IV steroids. gabepentin may be a good option (2) Intractable back pain: Supervising Physician Co-Signing Physician Notes I have seen and discussed above patient with Dr Rhina Nogueira, neurology. Pt seen, discussed and examined. Pt reports flu-like sx, fever and headache approx 10 d ago which has persisted. Several days ago severe increase in back pain. given narcotics, then confusion and visual hallucination. Occasionally for last 3-4 weeks some nocturnal poorly formed images at night on ceiling. No cognitive dysfunction.End of Jul pt had LES. Over 2 weeks ago brief visual phen L eye, like her vision turned 90 degrees. This occured on 2 occasions both with headache, but pt indicates vision not entirely returned to nml. Lmited exam, awake, alert good historian. Neck supple (Spine exam per [facility] revealed lower lumbar tenderness without rash or deformity). No papilledema, nml avina, facial symm. Symm UE and LE strength, no pathologic reflexes. Imp Visual hallucinations in the setting of narcotics for severe back pain, likely related to narcotics. However viral-type sx preceded the backpain and headache has persisted. P MRI brain with and without. EEG slow. MRI L spine, and carotid US. I would avoid narcotics. Consider gabapentin for back pain which may be better tolerated than amitriptyline. check esr. BARRY Nogueira MD History of Present Illness Reason for Consultation: visual hallucinations x 3 weeks Requesting Physician: Chato Junior MD Attending Physician: Chato Junior MD History of Present Illness Tabitha is a 74 year old female who presents the ED for evaluation of back pain. She has a history of chronic back and severe scoliosis. She was in the ED on 09/27 and was given IV morphine and discharged home on p.o. [place]. Since taking the [place], she is developed confusion and hallucinations. The pain is sharp, not burning, not radiating. The [place] has not been helping her back pain She had fevers and had sinus congestion about one week ago and was tested for influenza testing on 09/27 which was negative. In the ED, lumbar spine CT shows severe multilevel facet arthrosis and moderate multilevel degenerative disc disease within the lumbar spine. She was given IV Benadryl, IV fentanyl, IV Toradol, IV prochlorperazine, IVF, IV Tylenol. Her daughter is in the room and states she has been having more problems with her back since she fell 2 weeks ago. It is unclear when the hallucinations started her daughter just notice them since she was given narcotics. She does not have history of confusion or hallu cinations in the past. denies CP, SOB, abdominal pain, one sided weakness, numbness tingling, bowel or bladder symptoms, N, V. Allergies Allergy/AdvReac Type Severity Reaction Status Date / Time No Known Allergies Allergy Verified 09/29/19 14:06 Home Medications Home Medications Medication Instructions Recorded Confirmed Type Calcium 600 + D(3) 1 cap PO BID 03/09/19 09/29/19 History amitriptyline 25 mg PO HS 03/09/19 09/29/19 History ascorbic acid (vitamin C) [Vitamin 1 g PO QAM 03/09/19 09/29/19 History C] cholecalciferol (vitamin D3) 2,000 unit PO QAM 03/09/19 09/29/19 History [Vitamin D3] cyanocobalamin (vitamin B-12) 1,000 mcg PO QAM 03/09/19 09/29/19 History [Vitamin B-12] esomeprazole magnesium [Nexium] 40 mg PO QAM 03/09/19 09/29/19 History lisinopril-hydrochlorothiazide 2 tab PO QAM 03/09/19 09/29/19 History [Zestoretic] lutein-zeaxanthin 1 cap PO QAM 03/09/19 09/29/19 History meclizine 25 mg PO DAILY PRN 03/09/19 09/29/19 History meloxicam 15 mg PO QAM 03/09/19 09/29/19 History metoprolol succinate [Toprol XL] 100 mg PO QAM 03/09/19 09/29/19 History multivitamin 1 tab PO QAM 03/09/19 09/29/19 History sumatriptan succinate [Imitrex] 50 mg PO DAILY PRN 03/09/19 09/29/19 History turmeric root extract 2,000 mg PO HS 03/09/19 09/29/19 History acetaminophen [Tylenol Extra 500 mg PO Q6H PRN 09/29/19 09/29/19 History Strength] hydrocodone-acetaminophen [Vicodin 1 tab PO HS PRN 09/29/19 09/29/19 History HP] Patient History Medical History (Updated 10/01/19 @ 10:01 by Ashwini Webb DO) Acquired leg length discrepancy Per patient formal leg length films were performed as an outpatient with a 1.5 inch leg length discrepancy after TKA. Chronic back pain Fatty liver disease, nonalcoholic GERD (gastroesophageal reflux disease) Hypertension Kidney stones Migraine Obesity Osteoarthritis Scoliosis Thrombocytopenia Surgical History History of colonoscopy History of esophagogastroduodenoscopy (EGD) History of left knee replacement History of tonsillectomy S/P epidural steroid injection s/p right sacroiliac injection (03/07/19) S/P PITO-BSO Family History Mother Cervical cancer Family history of diabetes mellitus, Onset Age: 80 Brother Family history of esophageal cancer, Onset Age: 61 Social History Preferred Language: Togolese Communication Ability: Effective Suction Operator Required: No Beliefs That Will Affect Care: None marital status: Current Living Situation: Alone Other Information That Helps Us Care for You: No Feels Safe at Home: Yes Safety Concerns: Feels Safe At This Time Smoking Status: Never smoker Second Hand Exposure: No ; Hx Alcohol Use: Yes Alcohol type: wine Hx Substance Use: No Physical Exam Physical Exam: Physical Exam: Constitutional: appearance over nourished, healthy appear in pain, no neck stiffness Ears, Nose, Mouth and Throat: mucous membranes moist, no injection and skin normal, eyes normal Cardiovascular: normal S-1 and S-2 and regular rate and rhythm Respiratory: clear to auscultation (CTA) Musculoskeletal: no peripheral edema and good distal pulses Skin: no stigmata of neurocutaneous disease noted and normal and intact Eyes: pupils equal, round and reactive to light (PERRL) NEUROLOGIC EXAMINATION: Mental status: Alert and interactive minimally Oriented to person Speech fluent with no evidence of aphasia Cranial Nerves no facial irregularities Reflexes: Deep tendon reflexes were symmetrical and graded 2/5. down going toes, no clonu s. Sensory: intact to light and cool touch, rolled on back point tender at lower L to S spine no tenderness with straight leg raise, no rash Gait/Stance: Posture lying in bed Motor: Negative for pronator drift of out stretched arms with eyes closed. 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 Moderate levoscoliosis of the lumbar spine. Severe multilevel facet arthrosis. Moderate multilevel degenerative disc disease within the lumbar spine. Suboptimal evaluation of the central canal and neural foramen given CT technique. CT head-. Right frontal sinus air-fluid levels, and right ethmoid sinus opacification. Clinical correlation in regards to acute sinusitis is recommended. Otherwise no acute intracranial findings CT abd/pelvis-No evidence of bowel obstruction. No evidence of free air Cecal and proximal ascending colon edema. The findings are suggestive of a nonspecific colitis, or could be secondary to edema from hepatocellular disease Diverticulosis. No evidence of acute diverticulitis Minimal ascitesCirrhotic morphology the liver with splenomegaly Multilevel severe lumbar spinal stenosis
--- NOTE | 2019-10-02 18:57 | Electroencephalogram ---
EEG Procedure Note Date of Service October 02, 2019 Start / End Times Start Time: 353 End Time: 423 Referring Physician Rhina Nogueira MD History 3 weeks of visual hallucinations rule out seizure disorder, prion disease bedside Home Medication List Home Medications Medication Instructions Recorded Confirmed Type Calcium 600 + D(3) 1 cap PO BID 03/09/19 09/29/19 History amitriptyline 25 mg PO HS 03/09/19 09/29/19 History ascorbic acid (vitamin C) [Vitamin 1 g PO QAM 03/09/19 09/29/19 History C] cholecalciferol (vitamin D3) 2,000 unit PO QAM 03/09/19 09/29/19 History [Vitamin D3] cyanocobalamin (vitamin B-12) 1,000 mcg PO QAM 03/09/19 09/29/19 History [Vitamin B-12] esomeprazole magnesium [Nexium] 40 mg PO QAM 03/09/19 09/29/19 History lisinopril-hydrochlorothiazide 2 tab PO QAM 03/09/19 09/29/19 History [Zestoretic] lutein-zeaxanthin 1 cap PO QAM 03/09/19 09/29/19 History meclizine 25 mg PO DAILY PRN 03/09/19 09/29/19 History meloxicam 15 mg PO QAM 03/09/19 09/29/19 History metoprolol succinate [Toprol XL] 100 mg PO QAM 03/09/19 09/29/19 History multivitamin 1 tab PO QAM 03/09/19 09/29/19 History sumatriptan succinate [Imitrex] 50 mg PO DAILY PRN 03/09/19 09/29/19 History turmeric root extract 2,000 mg PO HS 03/09/19 09/29/19 History acetaminophen [Tylenol Extra 500 mg PO Q6H PRN 09/29/19 09/29/19 History Strength] hydrocodone-acetaminophen [Vicodin 1 tab PO HS PRN 09/29/19 09/29/19 History HP] Inpatient Medication List Acetaminophen (Tylenol) 1,000 mg PO TID [facility] Stop: 11/01/19 13:59 Last Admin: 10/02/19 14:00 Dose: 1,000 mg Documented by: [id number] Amitriptyline HCl (Elavil) 25 mg PO HS [facility] Stop: 10/29/19 20:59 Last Admin: 10/01/19 20:28 Dose: 25 mg Documented by: [id number] Admin: 09/30/19 20:38 Dose: 25 mg Documented by: [id number] Admin: 09/29/19 20:18 Dose: 25 mg Documented by: [id number] Amoxicillin/Clavulanate Potassium (Augmentin 875mg) 1 tab PO BIDM [facility] Stop: 10/06/19 19:59 Last Admin: 10/02/19 17:43 Dose: 1 tab Documented by: [id number] Admin: 10/02/19 09:39 Dose: 1 tab Documented by: [id number] Admin: 10/01/19 17:15 Dose: 1 tab Documented by: [id number] Admin: 10/01/19 07:38 Dose: 1 tab Documented by: [id number] Admin: 09/30/19 17:56 Dose: 1 tab Documented by: [id number] Admin: 09/30/19 07:35 Dose: 1 tab Documented by: [id number] Admin: 09/29/19 20:17 Dose: 1 tab Documented by: [id number] Diclofenac Sodium (Voltaren 1% Top) 4 gm EXT BID [facility] Stop: 10/31/19 20:59 Last Admin: 10/02/19 08:45 Dose: 4 gm Documented by: [id number] Admin: 10/01/19 20:28 Dose: 4 gm Documented by: [id number] Sodium Chloride (Nss 1000ml) 1,000 mls @ 80 mls/hr IV .[id number] [facility] Stop: 11/01/19 12:59 Last Admin: 10/02/19 13:38 Dose: 80 mls/hr Documented by: [id number] Lisinopril (Zestril) 40 mg PO [facility] Stop: 10/31/19 08:59 Last Admin: 10/02/19 07:47 Dose: 40 mg Documented by: [id number] Admin: 10/01/19 09:51 Dose: 40 mg Documented by: [id number] Metoprolol Succinate (Toprol Xl) 100 mg PO [facility] Stop: 10/30/19 08:59 Last Admin: 10/02/19 07:46 Dose: 100 mg Documented by: [id number] Admin: 10/01/19 09:52 Dose: 100 mg Documented by: [id number] Admin: 09/30/19 09:40 Dose: 100 mg Documented by: [id number] Morphine Sulfate (Morphine Sulfate) 4 mg IV Q6H PRN PRN Reason: Severe Pain Stop: 10/13/19 18:28 Last Admin: 09/30/19 05:11 Dose: 4 mg Documented by: [id number] Admin: 09/29/19 20:31 Dose: 4 mg Documented by: [id number] [facility]ivitamins ([facility]itamin Tab) [facility] [place]: 10/30/19 08:59 Last Admin: 10/02/19 09:40 Dose: 1 tab Documented by: [id number] Admin: 10/01/19 09:52 Dose: 1 tab Documented by: [id number] Admin: 09/30/19 09:40 Dose: 1 tab Documented by: [id number] Pantoprazole Sodium (Protonix) [facility] [place]: 10/30/19 08:59 Last Admin: 10/02/19 09:40 Dose: 40 mg Documented by: [id number] Admin: 10/01/19 09:52 Dose: 40 mg Documented by: [id number] Admin: 09/30/19 09:40 Dose: 40 mg Documented by: [id number] Saccharomyces Boulardii (Florastor) 250 mg PO DAILY [facility] Stop: 10/31/19 16:14 Last Admin: 10/02/19 09:39 Dose: 250 mg Documented by: [id number] Admin: 10/01/19 17:15 Dose: 250 mg Documented by: [id number] Tapentadol (Nucynta) 50 mg PO Q4H PRN PRN Reason: Pain Stop: 10/15/19 09:44 Last Admin: 10/02/19 07:58 Dose: 50 mg Documented by: [id number] Admin: 10/01/19 23:58 Dose: 50 mg Documented by: [id number] Admin: 10/01/19 15:54 Dose: 50 mg Documented by: [id number] Discontinued Medications Acetaminophen (Tylenol) 650 mg PO Q4H PRN PRN Reason: pain/fever Stop: 10/29/19 18:28 Last Admin: 10/01/19 06:58 Dose: 650 mg Documented by: [id number] Admin: 09/30/19 21:25 Dose: 650 mg Documented by: [id number] Admin: 09/30/19 17:20 Dose: 650 mg Documented by: [id number] Admin: 09/30/19 03:57 Dose: 650 mg Documented by: [id number] Diclofenac Sodium (Voltaren 1% Top) 4 gm EXT ONE ONE Stop: 10/01/19 09:47 Last Admin: 10/01/19 10:53 Dose: 4 gm Documented by: [id number] Diphenhydramine HCl (Benadryl) 25 mg IV NOW STA Stop: 09/29/19 12:36 Last Admin: 09/29/19 13:02 Dose: 25 mg Documented by: [id number] Fentanyl Citrate (Fentanyl Citrate) 50 mcg IV NOW STA Stop: 09/29/19 15:10 Last Admin: 09/29/19 16:13 Dose: 50 mcg Documented by: [id number] Lisinopril/HCTZ (Prinzide 20/25mg) 2 tab PO QAM [facility] Stop: 10/30/19 08:59 Last Admin: 09/30/19 09:40 Dose: 2 tab Documented by: [id number] Sodium Chloride (Nss 1000ml) 1,000 mls @ 100 mls/hr IV .Q10H [facility] Stop: 09/29/19 22:29 Last Infusion: 09/29/19 19:03 Dose: 0 mls/hr Documented by: [id number] Admin: 09/29/19 13:01 Dose: 100 mls/hr Documented by: [id number] Prochlorperazine (Compazine) 2 mls @ 1 mls/min IV ONE ONE Stop: 09/29/19 12:36 Last Admin: 09/29/19 13:02 Dose: 1 mls/min Documented by: [id number] Acetaminophen (Ofirmev) 1,000 mg in 100 mls @ 400 mls/hr IV NOW STA Stop: 09/29/19 15:23 Last Infusion: 09/29/19 16:31 Dose: 0 mls/hr Documented by: [id number] Admin: 09/29/19 16:16 Dose: 400 mls/hr Documented by: [id number] Dexamethasone Sodium Phosphate (8 mg/ Syringe) 2 mls @ 1 mls/min IV Q6H [facility] Stop: 10/01/19 02:01 Last Admin: 10/01/19 02:54 Dose: 1 mls/min Documented by: [id number] Admin: 09/30/19 20:39 Dose: 1 mls/min Documented by: [id number] Admin: 09/30/19 13:57 Dose: 1 mls/min Documented by: [id number] Admin: 09/30/19 07:35 Dose: 1 mls/min Documented by: [id number] Admin: 09/30/19 02:48 Dose: 1 mls/min Documented by: [id number] Admin: 09/29/19 20:18 Dose: 1 mls/min Documented by: [id number] Potassium Chloride/Sodium Chloride (Normal Saline W/20 Meq Kcl) 20 meq in 1,000 mls @ 50 mls/hr IV .Q20H [facility] Stop: 10/30/19 21:29 Last Infusion: 10/01/19 16:34 Dose: 0 mls/hr Documented by: [id number] Admin: 09/30/19 22:01 Dose: 50 mls/hr Documented by: [id number] Magnesium Sulfate/Dextrose (Magnesium Sulfate / D5w) 1 gm in 100 mls @ 100 mls/hr IV Q1H [facility] Stop: 10/02/19 11:34 Last Infusion: 10/02/19 12:00 Dose: 0 mls/hr Documented by: [id number] Admin: 10/02/19 10:56 Dose: 100 mls/hr Documented by: [id number] Infusion: 10/02/19 10:55 Dose: 100 mls/hr Documented by: [id number] Admin: 10/02/19 09:55 Dose: 100 mls/hr Documented by: [id number] Dexamethasone Sodium Phosphate (4 mg/ Syringe) 1 mls @ 1 mls/min IV ONE ONE Stop: 10/02/19 13:46 Last Admin: 10/02/19 14:23 Dose: 1 mls/min Documented by: [id number] Ioversol (Optiray 320 100ml) 94 ml IV ONCE PRN PRN Reason: Interaction Checking Stop: 10/03/19 14:25 Last Admin: 09/29/19 14:26 Dose: 94 ml Documented by: [id number] Ketorolac Tromethamine (Toradol) 15 mg IV ONE STA Stop: 09/29/19 12:31 Last Admin: 09/29/19 13:02 Dose: 15 mg Documented by: [id number] Ketorolac Tromethamine (Toradol) 15 mg IV Q6H [facility] Stop: 09/30/19 14:01 Last Admin: 09/30/19 13:57 Dose: 15 mg Documented by: [id number] Admin: 09/30/19 07:36 Dose: 15 mg Documented by: [id number] Admin: 09/30/19 02:48 Dose: 15 mg Documented by: [id number] Admin: 09/29/19 20:17 Dose: 15 mg Documented by: [id number] Ketorolac Tromethamine (Toradol) 15 mg IV NOW ONE Stop: 09/30/19 21:23 Last Admin: 09/30/19 21:57 Dose: 15 mg Documented by: [id number] Oxycodone HCl (Roxicodone Immediate Rel) 5 mg PO Q4H PRN PRN Reason: Pain Stop: 10/14/19 21:24 Last Admin: 10/01/19 00:26 Dose: 5 mg Documented by: [id number] Description This is a 21 electrode EEG with a single channel dedicated to limited EKG. The electrodes were placed in accordance with the International 10-20 system. This EEG was done as a bedside recording is of reasonable technical quality with few or no muscle movement artifacts. Video analysis of patient movement and behavior was obtained. Drowsiness and light sleep are not recorded. Photic stimulation was performed. Under these conditions there is no evidence for normal-appearing background alpha rhythm but rather a high theta rhythm at about 7 to 8 Hz and maximum frequency of about 30 V maximal amplitude which is bilaterally symmetrical and maximum posterior head regions. Polymorphic mid to slightly lower frequency modest amplitude theta activity is seen in a symmetrical fashion over the central regions without any associated rhythmic qualities or potentially epileptogenic discharges. Beta activity seen bifrontally Photic stimulation provokes no important changes No time during the tracing is evidence for potentially epileptogenic activity Interpretation This EEG is revealing of a mild nonspecific generalized encephalopathy without any focal features or associated potentially epileptogenic discharges Clinical Correlation This EEG reveals evidence for generalized nonspecific encephalopathy without clinical features or potential epileptogenic activity. The absence of the latter does not exclude the diagnosis of seizure disorder Micheal Carmen MD
[2019-10-02] MEDS ORDERED: GADOBUTROL 65ML VIAL IV PRN (21:49)
--- NOTE | 2019-10-02 21:49 | Magnetic Resonance Report ---
LUMBAR SPINE MRI HISTORY: severe back pain, fever TECHNIQUE: Multiplanar multisequence MRI of the lumbar spine was performed without the use of contras t. COMPARISON: Lumbar spine CT 09/29/2019. FINDINGS: For the purpose of the report the L5-S1 disc space will be located on axial image 33 of 36. Moderate levoscoliosis. Cirrhotic liver with splenomegaly is again noted. Alignment is intact. No fra ctures within the lumbar spine. Moderate to severe facet degenerative changes seen throughout the lum bar spine most pronounced at the L2-L3, L3-L4, and L4-L5 levels. Mild disc space narrowing at the low er thoracic spine and L1-L2. Moderate disc space narrowing at L2-L3. There is severe disc space narro wing at L4-5 and L5-S1. No endplate erosive changes. Mild endplate signal abnormality at L2-L3, L4-L5 and L5-S1 is consistent with degenerative change. The conus terminates at the T12-L1 disc space leve l. Subcutaneous edema within the lumbar region. L1-L2: Small broad-based posterior disc bulge with bilateral facet hypertrophy resulting in mild cent ral canal and mild left-sided neural foraminal narrowing. There is moderate to severe right-sided elizabeth ral foraminal narrowing. L2-L3: Broad-based posterior disc bulge with advanced ligamentum and facet hypertrophy resulting in s evere central canal narrowing. The central canal measures a diameter of 5 mm. There is also severe ri ght and moderate left neural foraminal narrowing. L3-L4: Broad-based posterior disc bulge with advanced ligamentum and facet hypertrophy resulting in s evere central canal narrowing. The central canal measures 5 mm in diameter. There is also moderate bi lateral neural foraminal narrowing. L4-L5: Small broad-based posterior disc bulge with ligamentum and facet hypertrophy resulting in mild -to-moderate central canal and moderate right neural foraminal narrowing. There is mild to moderate l eft-sided neural foraminal narrowing. L5-S1: No significant central canal narrowing. There is mild bilateral neural foraminal narrowing. IMPRESSION: 1. Moderate levoscoliosis. 2. Multilevel lumbar spondylosis as described above with central canal and neural foraminal narrowing . This is most pronounced at the L2-L3 and L3-L4 levels which demonstrates severe central canal narro wing. There 3. No fractures within the lumbar spine. 4. No endplate erosive changes identified. 5. Cirrhotic liver with splenomegaly. ACT 112: Negative or not required by law. Electronically signed by: Danish Hwang M.D. 10/02/2019 9:48 PM
--- NOTE | 2019-10-02 22:08 | Magnetic Resonance Report ---
Brain MRI WITH AND WITHOUT CONTRAST HISTORY: new onset visual hallucinations with headache and fever TECHNIQUE: Multiplanar multisequence MRI of the brain was performed both before and after the intrave nous administration of contrast. COMPARISON STUDY: Head CT 09/29/2019. FINDINGS: Mild motion artifact. Fluid levels with partial opacities of the right frontal sinus and ri ght ethmoid air cells. The mastoid air cells are clear. The major vascular flow-voids at the skull ba se are well-maintained. The ventricles and sulci are within normal limits for age. There is no mass, hematoma, midline shift, acute infarct. The orbits are unremarkable. A few scattered punctate foci of T2 hyperintensity seen within the white matter of the bilateral frontal lobes. This favors minimal m icrovascular ischemic change. No abnormal enhancement. IMPRESSION: 1. No acute intracranial abnormality. 2. Acute right-sided paranasal sinusitis as described above. ACT 112: Negative or not required by law. Electronically signed by: Danish Hwang M.D. 10/02/2019 10:07 PM
[2019-10-02] MEDS: dexAMETHasone 8 MG in SYRINGE 0 ML IV SCH ×2 (22:38→23:41)
[2019-10-02] MEDS: AMITRIPTYLINE HCL 25 MG TAB PO SCH (22:38)
--- NOTE | 2019-10-02 22:40 | Ultrasound Report ---
BILATERAL CAROTID DOPPLER STUDY HISTORY: impaired vision os COMPARISON: None. TECHNIQUE: Real-time, grayscale, and color Doppler sonography of the carotid arteries was performed. Imaging reviewed in the transverse and longitudinal planes. All measurements were calculated based on NASCET criteria. FINDINGS: Antegrade flow is seen in the bilateral vertebral arteries. The brachial pressures are hemodynamically similar. Moderate calcified plaque within the right carotid bulb and mild calcified plaque within the left car otid bifurcation. The peak systolic velocity within the right ICA is 124 cm/s. The right systolic ratio is 1.8. The peak systolic velocity within the left ICA is 80 cm/s. The left systolic ratio is 1.2. IMPRESSION: 1. Approximately 50-59% stenosis within the proximal right internal carotid artery. 2. No significant stenosis within the left carotid arteries. ACT 112: Negative or not required by law. Electronically signed by: Danish Hwang M.D. 10/02/2019 10:38 PM
[2019-10-03] MEDS: dexAMETHasone 8 MG in SYRINGE 0 ML IV SCH ×3 (05:48→17:55)
[2019-10-03] MEDS: SODIUM CHLORIDE 0.9% 1000ML 1,000 ML IV SCH ×2 (05:49→16:06)
[2019-10-03] MEDS: KETOROLAC TROMETHAMINE 15 MG/ML VIAL IV PRN ×3 (05:55→23:32)
[2019-10-03 06:31] LABS: Hematocrit (blood only) 35.3 % (37-47); Mean Corpuscular Hemoglobin 29.9 pg (25-34); Nucleated RBC # (auto) 0.08 K/uL (0-0); Nucleated RBC % (auto) 0.5 %; RDW Coefficient of Variation 15.5 % (11.5-14.5); RDW Standard Deviation 50.1 fL (36.4-46.3); Red Blood Count 4.01 M/uL (4.2-5.4); White Blood Count 16.45 K/uL (4.8-10.8)
[2019-10-03 06:33] LABS: Mean Platelet Volume 11.3 fL (7.4-10.4); Platelet Count 73 K/uL (130-400)
[2019-10-03 07:03] LABS: Calcium 8.4 mg/dl (8.5-10.1); Creatinine Clr Calc Pharmacy 59.2 ml/min; Est GFR (Non-African American) 64.7; Magnesium 2.1 mg/dl (1.8-2.4); Potassium 3.7 mmol/L (3.5-5.1)
[2019-10-03] MEDS: ACETAMINOPHEN 500 MG TAB PO SCH ×3 (08:06→20:20)
--- NOTE | 2019-10-03 08:27 | Hospitalist Progress Note ---
Date of Service October 03, 2019 Assessment & Plan (1) Intractable back pain: -Patient presenting from home with reports of intractable low back/SI joint pain and hallucinations -Seen in the ED on 09/27 and discharged home on [place] -Patient reports continued pain despite use of [place] -CT lumbar spine in the ED showing severe multilevel facet arthrosis. Moderate multilevel degenerative disc disease within the lumbar spine. -Both SI joints tender to palpation, patient may benefit from SI joint injection -Spine Ortho consult, case discussed with Dr. Philip; starting Decadron 8 mg every 6 hours and Toradol 15 mg every 6 hours -PT/OT -Patient seen by Orthopedics - recommend pain management consult, as her condition is difficult to treat and nonoperable -Patient seen by pain management (Dr. Webb) and pain medications were adjusted - pt was started on PO Nucynta and topical voltaren gel, as outpatient, pt follows up with pain management in [place]. -Yesterday (10/02), pt was actually drowsy, would not open her eyes unless prompted several times, very restless, moving out of bed - this is quite different from previous day. She appears uncomfortable and keeps holding her left hip. - stopped Nucynta, mental status change likely d/t new med - nucynta, re-started pt back on steroid and NSAID for pain control, will try to avoid any opioids or any other medications that acn significantly affect mental status of the pt - mental status and pain control much improved today (10/03), pt back to baseline (2) Hallucinations: -on admission believed to be secondary to [place] -Head CT negative for acute intracranial findings -Patient said that she has been having hallucinations for the past 2 to 3 weeks, seems as she was not using any pain medications, she also reports some visual changes when her vision rotated by 90 degrees? - 2 incidents - one about 2 weeks ago, and the other one about 1 month ago, she was supposed to see her eye doctor, on Wednesday however she was admitted here due to pain - Neurology was consulted for further evaluation, EEG, Brain MRI and L-spine MRI ordered, Carotid doppler obtained - EEG - negative for seizure activity, posit. for encephalopathy - MRI brain - c/w acute sinusitis, no acute ischemia/stroke - L-spine MRI - significant central canal narrowing at L2-L3 and L3-L4 - Carotid U/S - no significant stenosis to explain the symptoms - hallucinations believed to be secondary to acute sinusitis/ and medications - pt will need ophthalmology evaluation (3) Acute sinusitis: -A few days ago, patient had fever and URI type symptoms -Findings of acute sinusitis noted on head CT -Started Augmentin, will cont. 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 Pt's daughter lives in [place], and is worried because she feels that patient is not safe at home, given these new hallucinations. CM contacted to discuss further, possible home health. Subjective Pt much improved, she is sitting in the chair, alert and oriented, answers questions appropriately. Keeps her eyes open and able to converse. Daughter at the bedside. Yesterday pt was very restless, mental status changed likely d/t initiation of Nucynta. The medication was stopped and pt was re-started back on steroids and toradol prn. Pt had urinary retention in the morning yesterday and required straight cath, UA - negative. Pt's daughter and friend present at the bedside, updated. Neurology consulted for hx of hallucinations x 3 weeks and vision changes. Pt says that she did not see anything unusual such as spiders crawling on hospital sandoval such as the other day, but saw shadows recently. She underwent MRI studies last night. These had to be stopped several times d/t her back pain. Will likely need to contact Dr. Webb again if pain poorly controlled. However at this time need to avoid opioids or any medications that can alter her mental status significantly. Review of Systems Review of Systems: All systems reviewed & are unremarkable except as noted in HPI & below ROS per HPI, all other systems reviewed and negative Constitutional: no fever and no chills Respiratory: no cough and no dyspnea Cardiovascular: no chest pain and no palpitations Gastrointestinal: no abdominal pain, no nausea and no vomiting Musculoskeletal: + back pain Psychiatric: + hallucinations and + visual hallucinations Physical Exam Physical Exam: Constitutional: Elderly female, sitting up in the chair, currently in no acute distress Eyes: PERRL, EOMI, conjunctivae normal, anicteric sclerae ENMT: external ear and nose normal, oropharynx normal Respiratory: normal respiratory effort, lungs clear to auscultation Cardiovascular: Rate/Rhythm: regular rate and regular rhythm Vessels: normal peripheral pulses Extremities: no edema Gastrointestinal (Abdomen): normal bowel sounds, soft, nontender, obese, nondistended Musculoskeletal: no cyanosis or clubbing, moves all 4 extremities spontaneously, spine: + sacroiliac joint abnormality (Tenderness over both SI joints) Skin: no rashes, warm and dry Neurologic: PERRL, EOMI, accommodation nl, no face palsy, no dysarthria, moves all 4 extremities Psychiatric: A+Ox3, euthymic affect Results & Data ([facility]) Vital Signs (Past 12 Hours) Vital Signs Temp Pulse Resp BP Pulse Ox 10/03/19 07:39 37.0 C 86 18 138/75 94 10/02/19 23:20 36.5 C 77 18 110/70 93 Laboratory Results 10/03/19 10/03/19 10/03/19 Range/Units 06:16 06:16 06:16 WBC 16.45 H (4.8-10.8) K/uL RBC 4.01 L (4.2-5.4) M/uL Hgb 12.0 (12.0-16.0) g/dL Hct 35.3 L (37-47) % MCV 88.0 (80-100) fL MCH 29.9 (25-34) pg MCHC 34.0 (32-36) g/dL RDW Std Deviation 50.1 H (36.4-46.3) fL RDW Coeff of Lucie 15.5 H (11.5-14.5) % Plt Count 73 L (130-400) K/uL MPV 11.3 H (7.4-10.4) fL Absolute Nucleated RBC 0.08 H (0-0) K/uL Nucleated RBC % (auto) 0.5 % ESR > 90 H (0-21) mm/hr Sodium 132 L (136-145) mmol/L Potassium 3.7 (3.5-5.1) mmol/L Chloride 98 (98-107) mmol/L Carbon Dioxide 25 (21-32) mmol/L Anion Gap 9.0 (3-11) BUN 29 H (7-18) mg/dl Creatinine 0.89 (0.6-1.2) mg/dl Est Cr Clr Drug Dosing 59.2 ml/min Est GFR ( Amer) 75.0 Est GFR (Non-Af Amer) 64.7 Fasting Glucose 245 H (70-99) mg/dl Calcium 8.4 L (8.5-10.1) mg/dl Magnesium 2.1 (1.8-2.4) mg/dl Ammonia (11-32) umol/L Urine Color Urine Appearance (Clear) Urine pH (4.5-7.5) Ur Specific Henderson (1.000-1.030) Urine Protein (Negative) Urine Glucose (UA) (Negative) Urine Ketones (Negative) Urine Blood (Negative) Urine Nitrite (Negative) Urine Bilirubin (Negative) Urine Urobilinogen (Negative) Ur Leukocyte Esterase (Negative) 10/02/19 10/02/19 Range/Units 14:00 09:30 WBC (4.8-10.8) K/uL RBC (4.2-5.4) M/uL Hgb (12.0-16.0) g/dL Hct (37-47) % MCV (80-100) fL MCH (25-34) pg MCHC (32-36) g/dL RDW Std Deviation (36.4-46.3) fL RDW Coeff of Lucie (11.5-14.5) % Plt Count (130-400) K/uL MPV (7.4-10.4) fL Absolute Nucleated RBC (0-0) K/uL Nucleated RBC % (auto) % ESR (0-21) mm/hr Sodium (136-145) mmol/L Potassium (3.5-5.1) mmol/L Chloride (98-107) mmol/L Carbon Dioxide (21-32) mmol/L Anion Gap (3-11) BUN (7-18) mg/dl Creatinine (0.6-1.2) mg/dl Est Cr Clr Drug Dosing ml/min Est GFR ( Amer) Est GFR (Non-Af Amer) Fasting Glucose (70-99) mg/dl Calcium (8.5-10.1) mg/dl Magnesium (1.8-2.4) mg/dl Ammonia 36.0 H (11-32) umol/L Urine Color Dark Yellow Urine Appearance Clear (Clear) Urine pH 6.0 (4.5-7.5) Ur Specific Henderson 1.024 (1.000-1.030) Urine Protein Negative (Negative) Urine Glucose (UA) Negative (Negative) Urine Ketones Negative (Negative) Urine Blood Negative (Negative) Urine Nitrite Negative (Negative) Urine Bilirubin Negative (Negative) Urine Urobilinogen Negative (Negative) Ur Leukocyte Esterase Negative (Negative) Diagnostic Findings MR brain IMPRESSION: 1. No acute intracranial abnormality. 2. Acute right-sided paranasal sinusitis as described above. L-spine MRI IMPRESSION: 1. Moderate levoscoliosis. 2. Multilevel lumbar spondylosis as described above with central canal and neural foraminal narrowing. This is most pronounced at the L2-L3 and L3-L4 levels which demonstrates severe central canal narrowing. There 3. No fractures within the lumbar spine. 4. No endplate erosive changes identified. 5. Cirrhotic liver with splenomegaly. Carotid US IMPRESSION: 1. Approximately 50-59% stenosis within the proximal right internal carotid ar magui. 2. No significant stenosis within the left carotid arteries. Medications Administered Current Inpatient Medications Acetaminophen (Tylenol) 1,000 mg PO TID VANIA Stop: 11/01/19 13:59 Last Admin: 10/03/19 08:06 Dose: 1,000 mg Documented by: Amitriptyline HCl (Elavil) 25 mg PO HS VANIA Stop: 10/29/19 20:59 Last Admin: 10/02/19 22:38 Dose: 25 mg Documented by: Amoxicillin/Clavulanate Potassium (Augmentin 875mg) 1 tab PO BIDM VANIA Stop: 10/06/19 19:59 Last Admin: 10/02/19 17:43 Dose: 1 tab Documented by: Diclofenac Sodium (Voltaren 1% Top) 4 gm EXT BID VANIA Stop: 10/31/19 20:59 Last Admin: 10/02/19 22:39 Dose: 4 gm Documented by: Gadobutrol (Gadavist 65ml) 9.2 ml IV ONCE PRN PRN Reason: Interaction Checking Stop: 10/06/19 21:48 Last Admin: 10/02/19 21:49 Dose: 9.2 ml Documented by: Sodium Chloride (Nss 1000ml) 1,000 mls @ 80 mls/hr IV .[id number] [facility] Stop: 11/01/19 12:59 Last Admin: 10/03/19 05:49 Dose: 80 mls/hr Documented by: Dexamethasone 8 mg/ Syringe 2 mls @ 1 mls/min IV Q6H [facility] Stop: 11/01/19 19:59 Last Admin: 10/03/19 05:48 Dose: 1 mls/min Documented by: Ketorolac Tromethamine (Toradol) 15 mg IV Q6H PRN PRN Reason: Pain Stop: 10/07/19 18:17 Last Admin: 10/03/19 05:55 Dose: 15 mg Documented by: Lisinopril (Zestril) 40 mg PO [facility] Stop: 10/31/19 08:59 Last Admin: 10/02/19 07:47 Dose: 40 mg Documented by: Metoprolol Succinate (Toprol Xl) 100 mg PO [facility] Stop: 10/30/19 08:59 Last Admin: 10/02/19 07:46 Dose: 100 mg Documented by: Morphine Sulfate (Morphine Sulfate) 4 mg IV Q6H PRN PRN Reason: Severe Pain Stop: 10/13/19 18:28 Last Admin: 09/30/19 05:11 Dose: 4 mg Documented by: Multivitamins (Multivitamin Tab) 1 tab PO [facility] Stop: 10/30/19 08:59 Last Admin: 10/02/19 09:40 Dose: 1 tab Documented by: Pantoprazole Sodium (Protonix) 40 mg PO [facility] Stop: 10/30/19 08:59 Last Admin: 10/02/19 09:40 Dose: 40 mg Documented by: Saccharomyces Boulardii (Florastor) 250 mg PO DAILY [facility] Stop: 10/31/19 16:14 Last Admin: 10/02/19 09:39 Dose: 250 mg Documented by: Tapentadol (Nucynta) 50 mg PO Q4H PRN PRN Reason: Pain Stop: 10/15/19 09:44 Last Admin: 10/02/19 07:58 Dose: 50 mg Documented by:
[2019-10-03] MEDS: SACCHAROMYCES BOULARDII 250 MG CAP PO SCH (08:55)
[2019-10-03] MEDS: AMOXICILLIN/CLAVULANATE 875 MG TAB PO SCH ×2 (08:55→17:55)
[2019-10-03] MEDS: MULTIVITAMIN TAB PO SCH (08:55)
[2019-10-03] MEDS: DICLOFENAC SOD 1% GEL 100 GM TUBE EXT SCH ×2 (08:56→20:20)
[2019-10-03] MEDS: PANTOprazole 40 MG TAB PO SCH (08:56)
[2019-10-03] MEDS: METOPROLOL SUCC 50MG EXT REL TAB PO SCH (08:56)
[2019-10-03] MEDS: lisinopriL 40 MG TAB PO SCH (08:56)
--- NOTE | 2019-10-03 17:38 | Neurology Progress Note ---
Date of Service October 03, 2019 Assessment & Plan (1) Hallucinations: 1. CT lumbar spine- may need L spine MRI if able to tolerate 2. CT head- sinus disease- on antibiotics 3. limit narcotics and any sedation medication that can cause confusion and hallucinations 4. NSAIDS - as ordered 5. MRI brain and spine L/T - right sided paranasal sinusitis, L spine- pronounced severe central canal narrowing 6. orthopedics- no intervention planned- orthopedic review of MRI would be helpful 7. pain mgt for none narcotic pain mgt currently on IV steroids. gabapentin may be a good option 8. sed rate - >90 low grade fever (2) Intractable back pain: Supervising Physician Co-Signing Physician Notes I have seen and discussed above patient with Dr Rhina Nogueira, neurology. Pt seen and examined. MRI brain reviewed. Re sinusitis pt recently completed antiobiotic tx for same. MRI l spine images reviewed. Pt noting no hallucination, improved headache and back pain. ESR>90. Carotid us CHANEL 50-59% stenosis. Exam left optic nerve, grossly nml. Oriented, neck supple. Full UE and LE strength, intact ankle jerks. Impression: BROWN, fever flu sx, back pain.hallucination. Prior pt report visual distortion L eye where vision on 2 occasions rotated 90 degrees. pt feel the vision has not returned. Suspect hallucination related to flu-like illness/narcotics. Pt is improving. Re sed rate, visual sx, pt visual complaint would be unlikely for ocular ischemic. Rec having ophthal see pt. CRP ordered. Will follow with you, BARRY Nogueira MD Dre Lu is a 74 year old female who presents the ED for evaluation of back pain. She has a history of chronic back and severe scoliosis. She was in the ED on 09/27 and was given IV morphine and discharged home on p.o. [place]. Since taking the [place], she is developed confusion and hallucinations. The pain is sharp, not burning, not radiating. The [place] has not been helping her back pain She had fevers and had sinus congestion about one week ago and was tested for influenza testing on 09/27 which was negative. In the ED, lumbar spine CT shows severe multilevel facet arthrosis and moderate multilevel degenerative disc dise ase within the lumbar spine. She was given IV Benadryl, IV fentanyl, IV Toradol, IV prochlorperazine, IVF, IV Tylenol. Her daughter is in the room and states she has been having more problems with her back since she fell 2 weeks ago. It is unclear when the hallucinations started her daughter just notice them since she was given narcotics. She does not have history of confusion or hallucinations in the past. Today she states she is able to get up to the bathroom and walk in the [place] with PT. Since the MRI last night she thinks her back pain is better. She has not had any hallucinations today. denies CP, SOB, abdominal pain, one sided weakness, numbness tingling, bowel or bladder symptoms, N, V. 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5 H (11.5-14.5) % Plt Count 73 L (130-400) K/uL MPV 11.3 H (7.4-10.4) fL Absolute Nucleated RBC 0.08 H (0-0) K/uL ESR > 90 H (0-21) mm/hr Sodium 132 L (136-145) mmol/L BUN 29 H (7-18) mg/dl Fasting Glucose 245 H (70-99) mg/dl Calcium 8.4 L (8.5-10.1) mg/dl Diagnostic Findings MRI brain - No acute intracranial abnormality. Acute right-sided paranasal sinusitis. carotid doppler-approximately 50-59% stenosis within the proximal right internal carotid artery. No significant stenosis within the left carotid arteries. MRI L spine- Moderate levoscoliosis. Multilevel lumbar spondylosis as described above with central canal and neural foraminal narrowing. This is most pronounced at the L2-L3 and L3-L4 levels which demonstrates severe central canal narrowing. There 3. No fractures within the lumbar spine. No endplate erosive changes identified. Cirrhotic liver with splenomegaly.
[2019-10-03] MEDS ORDERED: dexAMETHasone 4 MG in SYRINGE 0 ML IV PRN (18:13)
[2019-10-03] MEDS: AMITRIPTYLINE HCL 25 MG TAB PO SCH (20:20)
[2019-10-04] MEDS: SODIUM CHLORIDE 0.9% 1000ML 1,000 ML IV SCH ×2 (02:05→04:24)
[2019-10-04 05:35] LABS: Hematocrit (blood only) 38.6 % (37-47); Mean Corpuscular Hemoglobin 29.8 pg (25-34); Mean Corpuscular Hgb Conc 33.7 g/dL (32-36); Mean Corpuscular Volume 88.5 fL (80-100); Mean Platelet Volume 12.2 fL (7.4-10.4); Nucleated RBC % (auto) 0.5 %; Platelet Count 76 K/uL (130-400); RDW Coefficient of Variation 15.9 % (11.5-14.5); RDW Standard Deviation 51.2 fL (36.4-46.3); Red Blood Count 4.36 M/uL (4.2-5.4); White Blood Count 20.08 K/uL (4.8-10.8)
[2019-10-04 05:52] LABS: Calcium 8.4 mg/dl (8.5-10.1); Creatinine Clr Calc Pharmacy 51.2 ml/min; Est GFR (African American) 62.9; Est GFR (Non-African American) 54.3; Potassium 3.8 mmol/L (3.5-5.1)
[2019-10-04] MEDS: KETOROLAC TROMETHAMINE 15 MG/ML VIAL IV PRN (06:21)
[2019-10-04] MEDS: lisinopriL 40 MG TAB PO SCH (08:46)
[2019-10-04] MEDS: METOPROLOL SUCC 50MG EXT REL TAB PO SCH (08:47)
[2019-10-04] MEDS: PANTOprazole 40 MG TAB PO SCH (09:01)
[2019-10-04] MEDS: MULTIVITAMIN TAB PO SCH (09:01)
[2019-10-04] MEDS: SACCHAROMYCES BOULARDII 250 MG CAP PO SCH (09:01)
[2019-10-04] MEDS: AMOXICILLIN/CLAVULANATE 875 MG TAB PO SCH ×2 (09:01→17:20)
[2019-10-04] MEDS: ACETAMINOPHEN 500 MG TAB PO SCH ×3 (09:02→20:38)
[2019-10-04] MEDS: DICLOFENAC SOD 1% GEL 100 GM TUBE EXT SCH ×3 (09:03→20:36)
--- NOTE | 2019-10-04 09:27 | Hospitalist Progress Note ---
Date of Service October 04, 2019 Assessment & Plan (1) NSTEMI (non-ST elevated myocardial infarction): Patient c/o Chest pain today, EKG reviewed, IV Heparin started, Plavix, Troponins oredered (First one Pos at 5), Cards notified Transferred to PCU (2) Intractable back pain: -Patient presenting from home with reports of intractable low back/SI joint pain and hallucinations -Seen in the ED on 09/27 and discharged home on Ida -Patient reports continued pain despite use of Ida -CT lumbar spine in the ED showing severe multilevel facet arthrosis. Moderate multilevel degenerative disc disease within the lumbar spine. -Both SI joints tender to palpation, patient may benefit from SI joint injection -Spine Ortho consult, case discussed with Dr. Philip; starting Decadron 8 mg every 6 hours and Toradol 15 mg every 6 hours -PT/OT -Patient seen by Orthopedics - recommend pain management consult, as her condition is difficult to treat and nonoperable -Patient seen by pain management (Dr. Webb) and pain medications were adjusted - pt was started on PO Nucynta and topical voltaren gel, as outpatient patient, pt follows up with pain management in [place]. -Today (10/02), pt is actually drowsy, will not open her eyes unless prompted se veral times, very restless, moving out of bed - this is quite different from yesterday. She appears uncomfortable and keeps holding her left hip. (3) Hallucinations: -on admission believed to be secondary to Ida -Head CT negative for acute intracranial findings -Patient said that she has been having hallucinations for the past 2 to 3 weeks, seems as she was not using any pain medications, she also reports some visual changes- 2 incidents - one about 2 weeks ago, and the other one about 1 month ago, she was supposed to see her eye doctor, on Wednesday however she was admitted here due to pain (4) Acute sinusitis: -A few days ago, patient had fever and URI type symptoms -Findings of acute sinusitis noted on head CT -Started Augmentin, will cont. 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 Pt's daughter lives in [place], and is worried because she feels that patient is not safe at home, given these new hallucinations. CM contacted to discuss further, possible home health. Await Cards w/u ROS-No Headache, No Visual Changes, No Nausea, No Vomiting, No Fever, No Chills, No Neck Pain or Stiffness, + Chest Pain, No Palpitations, No SOB, No ROMAN, No Cough, No Sputum, No Wheezing, No Abdominal Pain, No Diarrhea, No Hematemesis, No Hemoptysis, No Unexpected Weight Loss, No Flank pain, No Melena, No Hematochezia, No Frequency, No Urgency, No Burning, No Hematuria, No Rashes, No Diaphoresis. Appetite is Normal Physical Exam Gen-AAO x 3, NAD, Afebrile, Obese Head-NCAT, EOMI, PERRLA, Anicteric Sclera, No Posterior Pharyngeal Erythema Neck-Supple, No JVD, No Thyromegaly, No Masses, No LAD, No Bruits Lungs-Clear to Auscultation Bilaterally, No Rales, No Rhonchi, No Wheezing, No Crepitus Chest-No S4, +S1, +S2, No S3, No Murmurs, No Rubs, No Gallops, No Ectopy Abdomen-Soft, Bowel Sounds Present, Non Tender, Non Distended, No Hepatomegaly, No Splenomegaly, No Palpable Masses, No Rebound, No Rigidity, No Guarding Musculoskeletal-Full Range of Motion Bilaterally, No CVAT Extremities-No Cyanosis, No Clubbing, No Edema Nuero-Cranial Nerves II-XII grossly intact, Motor WNL, DTRs WNL, Strength WNL, Non Focal Psych-Normal Mood Results & Data ([facility]) Vital Signs (Past 12 Hours) Vital Signs Temp Pulse Pulse Resp BP Pulse Ox 10/04/19 09:13 102 H 174/93 H 95 10/04/19 09:04 95 10/04/19 08:59 88 L 10/04/19 08:39 37.2 C 104 H 12 181/91 H 93 10/04/19 08:15 105 H 192/92 H 94 10/04/19 06:55 37.1 C 100 H 18 173/84 H 93 10/03/19 23:25 37.3 C 87 20 137/76 93
[2019-10-04 09:49] LABS: D Dimer > 35200 ug/L FEU (0-500)
[2019-10-04] MEDS ORDERED: SUMAtriptan succinate 50 MG TAB PO PRN (09:49)
[2019-10-04] MEDS ORDERED: HEPARIN 25000 UNIT/500 ML D5W IV ONE (09:58)
--- NOTE | 2019-10-04 10:12 | Cardiology Consultation ---
Date of Consultation October 04, 2019 Assessment & Plan (1) NSTEMI (non-ST elevated myocardial infarction): (2) Thrombocytopenia: Based on her symptoms of chest pain and shortness of breath and her troponin level of 5.95, patient has had a non-ST segment elevation myocardial infarction. The question is whether or not this is due to intracoronary process such as intracoronary thrombosis, or if her chest pain, shortness of breath, and elevated troponin can be explained on the basis of pulmonary embolism. A stat echocardiogram has been performed and will be reviewed. If she has significant changes of right ventricular chamber size or RV dysfunction, this may lean toward the diagnosis of pulmonary embolism, as compared to regional wall motion abnormalities of the left ventricle. I have also ordered a stat lower extremity venous duplex. Heparin is to be initiated. A dose of clopidogrel had been ordered by the primary team. If myocardial infarction due to coronary problem is suggested on her echo test, will order aspirin. Her platelet count is 76,000 today. This appears to be relatively unchanged with a level as low as 68,000 noted on 03/22/2019 when she was admitted for knee surgery. This is perhaps related to her underlying cirrhosis and splenomegaly, question if she has underlying fatty liver infiltration. Unfortunately, I am able to access her outpatient record at the time of this acute visit, but this will need to be reviewed. The recommendations will be forthcoming. History of Present Illness Attending Physician: Ruiz Pascal, History of Present Illness Tabitha Rowe is a 74-year-old female seen in cardiology consultation per the request of Dr. Pascal for evaluation of chest discomfort and elevated troponin. The patient describes no past history of heart disease.. She was initially seen in the emergency department on 09/27/2023 acute on chronic back pain. She was discharged with plans for medication therapy, and then presented again on 09/29/2019 at which time she was admitted. She had also described nonspecific fevers at home, and testing for influenza was negative on 09/27/2019. An MRI of the lumbar spine performed on 10/02/2019 revealed multi-level lumbar spondylosis with central and neural foraminal narrowing most prominent at the L2-L3 level and L3-L4 levels which demonstrate severe central canal narrowing. Imaging findings were consistent with liver cirrhosis with splenomegaly, which was also documented on CT scan. Carotid duplex was performed on 10/02/2019 due to transient visual disturbance revealing a 50 to 59% stenosis in the proximal right internal carotid artery. MRI findings were negative for stroke. The patient describes waxing and waning back pain over the last few days, but this morning she also has described chest pain or shortness of breath. Per her nurse, it was most prominent when she was ambulating to and from the bathroom this morning. On further discussion with the patient she states that along with her back pain, she has been having waxing waning chest discomfort midline, that she states persisted throughout the night last night. It is noted that she has been off of her feet for approximately 6 or more days. She has not been on pharmacologic DVT prophylaxis due to concerns of her chronic thrombocytopenia with platelet counts in the range of 80,000. The throat cytopenia appears to be a chronic issue, as laboratory studies performed at the time of knee surgery in February, document similar levels. The patient was assessed acutely on the third floor while she was being readied for transfer to the first floor ICU. She was ill in appearance, and complained of chest pain and shortness of breath. EKG performed just prior to my visit revealed sinus tachycardia at 105 bpm, and age-indeterminate anterior infarction cannot be excluded based on poor R wave progression in leads V2 to V4, however there were no significant ST changes with the exception of vague possible J- point elevation in lead V2 that was more prominent than her previous tracing dating back to 03/10/2019 and 09/29/2019. Allergies Allergy/AdvReac Type Severity Reaction Status Date / Time No Known Allergies Allergy Verified 09/29/19 14:06 Home Medications Home Medications Medication Instructions Recorded Confirmed Type Calcium 600 + D(3) 1 cap PO BID 03/09/19 09/29/19 History amitriptyline 25 mg PO HS 03/09/19 09/29/19 History ascorbic acid (vitamin C) [Vitamin 1 g PO QAM 03/09/19 09/29/19 History C] cholecalciferol (vitamin D3) 2,000 unit PO QAM 03/09/19 09/29/19 History [Vitamin D3] cyanocobalamin (vitamin B-12) 1,000 mcg PO QAM 03/09/19 09/29/19 History [Vitamin B-12] esomeprazole magnesium [Nexium] 40 mg PO QAM 03/09/19 09/29/19 History lisinopril-hydrochlorothiazide 2 tab PO QAM 03/09/19 09/29/19 History [Zestoretic] lutein-zeaxanthin 1 cap PO QAM 03/09/19 09/29/19 History meclizine 25 mg PO DAILY PRN 03/09/19 09/29/19 History meloxicam 15 mg PO QAM 03/09/19 09/29/19 History metoprolol succinate [Toprol XL] 100 mg PO QAM 03/09/19 09/29/19 History multivitamin 1 tab PO QAM 03/09/19 09/29/19 History sumatriptan succinate [Imitrex] 50 mg PO DAILY PRN 03/09/19 09/29/19 History turmeric root extract 2,000 mg PO HS 03/09/19 09/29/19 History acetaminophen [Tylenol Extra 500 mg PO Q6H PRN 09/29/19 09/29/19 History Strength] hydrocodone-acetaminophen [Vicodin 1 tab PO HS PRN 09/29/19 09/29/19 History HP] Patient History Medical History Acquired leg length discrepancy Per patient formal leg length films were performed as an outpatient with a 1.5 inch leg length discrepancy after TKA. Chronic back pain Fatty liver disease, nonalcoholic GERD (gastroesophageal reflux disease) Hypertension Kidney stones Migraine Obesity Osteoarthritis Scoliosis Thrombocytopenia Surgical History History of colonoscopy History of esophagogastroduodenoscopy (EGD) History of left knee replacement History of tonsillectomy S/P epidural steroid injection s/p right sacroiliac injection (03/07/19) S/P PITO-BSO Family History Mother Cervical cancer Family history of diabetes mellitus, Onset Age: 80 Brother Family history of esophageal cancer, Onset Age: 61 Social History Preferred Language: Moldovan Communication Ability: Effective Explosive Expert Required: No Beliefs That Will Affect Care: None marital status: Current Living Situation: Alone Other Information That Helps Us Care for You: No Feels Safe at Home: Yes Safety Concerns: Feels Safe At This Time Smoking Status: Never smoker Second Hand Exposure: No ; Hx Alcohol Use: Yes Alcohol type: wine Hx Substance Use: No Review of Systems Review of Systems: All systems reviewed & are unremarkable except as noted in HPI & below Physical Exam Physical Exam: Temp Pulse Resp BP Pulse Ox 37.2 C 102 H 12 174/93 H 95 10/04/19 08:39 10/04/19 09:13 10/04/19 08:39 10/04/19 09:13 10/04/19 09:13 Respiratory: normal respiratory effort, lungs clear to auscultation Cardiovascular: RRR, no murmur, no edema Gastrointestinal (Abdomen): normal bowel sounds, soft, nontender, no hepatosplenomegaly Skin: no rashes, warm and dry Neurologic: PERRL, EOMI, accommodation nl, no face palsy, no dysarthria Results & Data Vital Signs (Past 12 Hours) Vital Signs Temp Pulse Pulse Resp BP Pulse Ox 10/04/19 09:13 102 H 174/93 H 95 10/04/19 09:04 95 10/04/19 08:59 88 L 10/04/19 08:39 37.2 C 104 H 12 181/91 H 93 10/04/19 08:15 105 H 192/92 H 94 10/04/19 06:55 37.1 C 100 H 18 173/84 H 93 10/03/19 23:25 37.3 C 87 20 137/76 93 Laboratory Results Cardiac Enzymes 10/04/19 Range/Units 08:33 Troponin I 5.920 H* (0-0.045) ng/ml CBC 10/04/19 Range/Units 05:15 WBC 20.08 H (4.8-10.8) K/uL RBC 4.36 (4.2-5.4) M/uL Hgb 13.0 (12.0-16.0) g/dL Hct 38.6 (37-47) % Plt Count 76 L (130-400) K/uL Comprehensive Metabolic Panel 10/04/19 Range/Units 05:15 Sodium 134 L (136-145) mmol/L Potassium 3.8 (3.5-5.1) mmol/L Chloride 100 (98-107) mmol/L Carbon Dioxide 26 (21-32) mmol/L BUN 40 H (7-18) mg/dl Creatinine 1.03 (0.6-1.2) mg/dl Calcium 8.4 L (8.5-10.1) mg/dl Intake and Output 10/03/19 10/04/19 10/04/19 22:59 06:59 14:59 Intake Total 408.667 / 2735.334 1184 / 2735.334 372 / 372 Output Total 350 / 978 178 / 978 Balance 58.667 / 7792.836 0683 / 1757.334 372 / 372 Intake: IV 158.667 / 1805.334 984 / 1805.334 372 / 372 Nss 1000ML 1,000 ml @ 80 mls/hr 158.667 / 1805.334 984 / 1805.334 372 / 372 IV .[id number] [facility] Rx#:[id number] Oral 250 / 930 200 / 930 Output: Urine 350 / 975 175 / 975 # Bowel Movements 3 / 3 Other: # Unmeasured Voids 1 Medications Administered Current Inpatient Medications Acetaminophen (Tylenol) 1,000 mg PO TID [facility] Stop: 11/01/19 13:59 Last Admin: 10/04/19 09:02 Dose: 1,000 mg Documented by: Amitriptyline HCl (Elavil) 25 mg PO HS [facility] Stop: 10/29/19 20:59 Last Admin: 10/03/19 20:20 Dose: 25 mg Documented by: Amoxicillin/Clavulanate Potassium (Augmentin 875mg) 1 tab PO BIDM [facility] Stop: 10/06/19 19:59 Last Admin: 10/04/19 09:01 Dose: 1 tab Documented by: Clopidogrel Bisulfate (Plavix) 75 mg PO NOW ONE Stop: 10/04/19 09:50 Diclofenac Sodium (Voltaren 1% Top) 4 gm EXT BID [facility] Stop: 10/31/19 20:59 Last Admin: 10/04/19 09:53 Dose: Not Given Documented by: Gadobutrol (Gadavist 65ml) 9.2 ml IV ONCE PRN PRN Reason: Interaction Checking Stop: 10/06/19 21:48 Last Admin: 10/02/19 21:49 Dose: 9.2 ml Documented by: Heparin Sodium/Dextrose () 1 ea IV NOW STA; Protocol Stop: 10/04/19 09:50 Hydralazine HCl (Apresoline) 25 mg PO NOW STA Stop: 10/04/19 09:50 Dexamethasone 4 mg/ Syringe 1 mls @ 1 mls/min IV Q6H PRN PRN Reason: pain Stop: 11/01/19 19:59 Heparin Sodium/Dextrose (Heparin Sodium/Dextrose) 25,000 units in 500 mls @ 0.02 mls/hr IV .Q24H [facility]; Protocol Stop: 11/03/19 09:48 Lisinopril (Zestril) 40 mg PO [facility] Stop: 10/31/19 08:59 Last Admin: 10/04/19 08:46 Dose: 40 mg Documented by: Meclizine HCl (Antivert 25mg Home Pack) homepack PO DAILY PRN PRN Reason: Vertigo Stop: 11/03/19 09:48 Metoprolol Succinate (Toprol Xl) 100 mg PO [facility] Stop: 10/30/19 08:59 Last Admin: 10/04/19 08:47 Dose: 100 mg Documented by: Morphine Sulfate (Morphine Sulfate) 4 mg IV Q6H PRN PRN Reason: Severe Pain Stop: 10/13/19 18:28 Last Admin: 09/30/19 05:11 Dose: 4 mg Documented by: Multivitamins (Multivitamin Tab) 1 tab PO [facility] Stop: 10/30/19 08:59 Last Admin: 10/04/19 09:01 Dose: 1 tab Documented by: Non-Formulary Medication (Ascorbic Acid (Vitamin C) [Vitamin C]) 1 gm PO [facility] Stop: 11/04/19 08:59 Non-Formulary Medication (Calcium Carbonate-Vitamin D3 [Calcium 600 + D(3)]) 1 cap PO BID [facility] Stop: 11/03/19 20:59 Non-Formulary Medication (Cholecalciferol (Vitamin D3) [Vitamin D3]) 2,000 units PO [facility] Stop: 11/04/19 08:59 Non-Formulary Medication (Cyanocobalamin (Vitamin B-12) [Vitamin B-12]) 1,000 mcg PO [facility] Stop: 11/04/19 08:59 Non-Formulary Medication (Lutein-Zeaxanthin) 1 cap PO [facility] Stop: 11/04/19 08:59 Non-Formulary Medication (Turmeric Root Extract) 2,000 mg PO HS [facility] Stop: 11/03/19 20:59 Pantoprazole Sodium (Protonix) [facility] [place] Stop: 10/30/19 08:59 Last Admin: 10/04/19 09:01 Dose: 40 mg Documented by: Saccharomyces Boulardii (Florastor) 250 mg PO DAILY [facility] Stop: 10/31/19 16:14 Last Admin: 10/04/19 09:01 Dose: 250 mg Documented by: Sumatriptan Succinate (Imitrex) 50 mg PO DAILY PRN PRN Reason: MIGRAINES Stop: 11/03/19 09:48 Tapentadol (Nucynta) 50 mg PO Q4H PRN PRN Reason: Pain Stop: 10/15/19 09:44 Last Admin: 10/02/19 07:58 Dose: 50 mg Documented by:
[2019-10-04] MEDS ORDERED: CLOPIDOGREL BISULFATE 75 MG TAB PO ONE (10:15)
[2019-10-04] MEDS: HEPARIN SODIUM/DEXTROSE 25,000 UNITS/500 ML BAG IV SCH ×2 (10:15→10:31)
[2019-10-04] MEDS ORDERED: HEPARIN IV BOLUS 5,000 UNITS in SYRINGE 0 ML IV ONE (10:15)
[2019-10-04] MEDS ORDERED: MECLIZINE HCL 25 MG TAB PO PRN (10:20)
[2019-10-04] MEDS ORDERED: ASPIRIN 81 MG CHEW PO ONE (10:34)
[2019-10-04] MEDS ORDERED: METOPROLOL TARTRATE 1 MG/ML VIAL IV STA (10:41)
[2019-10-04] MEDS ORDERED: METOPROLOL TARTRATE 1 MG/ML VIAL IV ONE (10:44)
--- NOTE | 2019-10-04 11:31 | Ultrasound Report ---
BILATERAL LOWER EXTREMITY VENOUS DOPPLER HISTORY: Atypical chest pain, stasis,rule out DVT COMPARISON STUDY: None. FINDINGS: There is normal compressibility, flow, and augmentation within the bilateral lower extremit y deep venous systems. IMPRESSION: No DVT within the right or left lower extremity. ACT 112: Negative or not required by law. Electronically signed by: Danish Hwang M.D. 10/04/2019 11:30 AM
[2019-10-04] MEDS ORDERED: OPTIRAY 320 125ml IV PRN (11:57)
[2019-10-04] MEDS ORDERED: SODIUM CHLORIDE 0.9% 1000ML 1,000 ML IV SCH (12:30)
--- NOTE | 2019-10-04 12:36 | CT Scan Report ---
CT angio chest PE protocol CT DOSE: 565.71 mGycm HISTORY: 74 years-old Female with PE. Acute shortness of breath reported right-sided heart failure. TECHNIQUE: Multiple CTA images of the chest were obtained after the intravenous administration of 120 ml Optiray 320. Coronal and sagittal MIPS were obtained from the axial data set and were submitted for review. All measurements were obtained according to NASCET criteria. A dose lowering technique w as utilized adhering to the principles of ALARA. COMPARISON: CT abdomen and pelvis 09/29/2019 FINDINGS: CTA: Moderate to marked cardiomegaly with multichamber enlargement of the heart. Aortic annular and mckee ry arterial calcifications are present. Trace pericardial effusion. Aberrant course of the right subc lavian artery. Moderate mixed plaque of the thoracic aorta. Pulmonary artery is opacified to level th e subsegmental branches and demonstrates no filling defects to suggest pulmonary thromboembolic disea se. Pulmonary artery is dilated, 3.[address] CHEST: Unremarkable thyroid. Mildly enlarged paratracheal, subcarinal and hilar lymph nodes measure up to 1. 1 cm. Small pleural effusions. No pneumothorax. Intralobular septal thickening. Patchy bilateral grou ndglass opacities are noted, greatest within the right lower lobe. 5 mm solid nodule with adjacent tr ee-in-bud nodules about the lateral segment right middle lobe. Central airways appear patent. Splenomegaly.. Small hiatal hernia with mid and distal esophageal wall thickening. Trace upper abdomi nal ascites. Equivocal marginal nodularity of the liver. Degenerative changes of the spine and should ers. No acute fracture identified. Convex right curvature of the mid to lower thoracic spine. IMPRESSION: 1. Moderate to marked cardiomegaly without evidence of pulmonary thromboembolic disease. 2. Suggestion of pulmonary arterial hypertension. 3. Interstitial pulmonary edema with small pleural effusions and mild dependent bibasilar atelectasis . Additional right greater than left bibasilar predominant groundglass densities suggest asymmetric a lveolar pulmonary edema versus superimposed pneumonitis. 4. Likely infectious or inflammatory solid nodules of the right middle lobe measure up to 5 mm with m ild associated bronchiolitis. 5. Mediastinal and hilar adenopathy, likely reactive. 6. Splenomegaly. 7. Additional findings as above. Please refer to below summary of Fleischner criteria recommendations for follow-up of incidental CT n odules ([facility], Guidelines for management of small pulmonary nodules detected on CT scans: A sta tement from the Fleischner Society, Radiology 237: [phone].) SOLID NODULES Solitary nodule size: <6 mm * Low risk patients: no follow-up needed * high risk patients: optional CT at 12 months Solitary nodule size: 6-8 mm * Low risk patients: follow-up at 6-12 months, then consider further follow-up at 18-24 months * high risk patients: initial follow-up CT at 6-12 months and then at 18-24 months if no change Solitary nodule size: >8 mm * either low or high risk patients - consider follow-up CT at 3 months, and/or CT-PET, and/or biopsy Multiple nodules size: <6 mm * Low risk patients: no routine follow-up * high risk patients: optional CT at 12 months Multiple nodules size: 6-8 mm * Low risk patients: follow-up at 3-6 months, then consider further follow-up at 18-24 months * high risk patients: follow-up at 3-6 months, then at 18-24 months if no change Multiple nodules size: >8 mm * Low risk patients: follow-up at 3-6 months, then consider further follow-up at 18-24 months * high risk patients: follow-up at 3-6 months, then at 18-24 months if no change Note: newly detected indeterminate nodule in persons 35 years of age or older. * Low risk patients: minimal or absent history of smoking and/or other known risk factors * high risk patients: history of smoking or of other known risk factors (e.g. first degree relative with lung cancer, or exposure to asbestos, radon, uranium) * if a nodule up to 8 mm is partly solid or is ground glass further follow-up is required after 24 m onths to exclude possible slow growing adenocarcinoma (CIAARN) SUBSOLID NODULES Solitary pure ground-glass nodule * nodule size <6 mm - no CT follow-up required * nodule size >=6 mm - follow-up CT at 6-12 months, then every 2 years until 5 years Solitary part-solid nodule * nodule size <6 mm - no CT follow-up required * nodule size >=6 mm - follow-up CT at 3-6 months. If unchanged, and solid component remains <6 mm, then annual follow-up for 5 years Multiple subsolid nodules * nodule size <6 mm - follow-up CT at 3-6 months, consider further follow-up at 2 and 4 years if sta ble * nodule size >=6 mm - follow-up CT at 3-6 months, subsequent management based on the most suspiciou s nodule(s) ACT 112: Negative or not required by law. The above report was generated using voice recognition software. It may contain grammatical, syntax o r spelling errors. Electronically signed by: Cornelius Easton M.D. 10/04/2019 12:34 PM
--- NOTE | 2019-10-04 13:32 | Communication Note ---
Date of Service: October 04, 2019 CTA revealed no pulmonary embolism. No indication for emergent cardiac catheterization at this time. Continue medical therapy with ASA, metoprolol, start statin. NPO after MN for possible cardiac cath 10/05. IVF NS at 80 ml /hr x 1 liter given contrast exposure.
[2019-10-04] MEDS ORDERED: HEPARIN SOD 5,000 UNIT/0.5 ML VIAL SQ SCH (14:00)
--- NOTE | 2019-10-04 14:20 | Neurology Progress Note ---
Date of Service October 04, 2019 Assessment & Plan (1) Intractable back pain: 1. CT lumbar spine- chronic issues 2. CT head- sinus disease- on antibiotics 3. limit narcotics and any sedation medication that can cause confusion and hallucinations 4. NSAIDS - as ordered 5. MRI brain and spine L/T - right sided paranasal sinusitis, L spine- pronounced severe central canal narrowing 6. orthopedics- no intervention planned- orthopedic review of MRI would be helpful 7. pain mgt for none narcotic pain mgt currently on IV steroids. gabapentin may be a good option 8. sed rate - >90 low grade fever 9. CP / SOB- transferred to ICU work up for CP/SOB- no PE/DVT elevated troponins 10. hallucination not an issues at this point but still some confusion will monitor (2) Hypertension: as above (3) Hallucinations: as above Supervising Physician Co-Signing Physician Notes I have seen and discussed above patient with Dr Rhina Nogueira, neurology. PT seen and examined. Events reviewed. Pt still with mild headache, no new visual sx. CRP elevated,SED rate elevated, query related to viral illness. No jaw claudication.Denies visual hallucinations Exam, good TA pulsations, no tenderness.oriented to person, place time. Nml visual avina, symm UE and LE strength. Impression visual hallucinations related to illness, narcotics, improving. Although pt chronically on amitriptyline for headache prophylaxis, could be contrib to hallucination. Dec dose to 10 mg hs. Episode of visual shift by 90 degrees OS, x 2. Eventually pt will need to see ophthal. CHANEL stenosis, 50-69% rec fu carotid us in 6 months then yearly thereafter with referral to vasc surgery if stenosis greater than 70% Headache assoc with viral syndrome.Will follow withou. Dre Tabitha is a 74 year old female who presents the ED for evaluation of back pain. She has a history of chronic back and severe scoliosis. She was in the ED on 09/27 and was given IV morphine and discharged home on p.o. [place]. Since taking the [place], she is developed confusion and hallucinations. The pain is sharp, not burning, not radiating. The [place] has not been helping her back pain She had fevers and had sinus congestion about one week ago and was tested for influenza testing on 09/27 which was negative. In the ED, lumbar spine CT shows severe multilevel facet arthrosis and moderate multilevel degenerative disc disease within the lumbar spine. She was given IV Benadryl, IV fentanyl, IV Toradol, IV prochlorperazine, IVF, IV Tylenol. Her daughter is in the room and states she has been having more problems with her back since she fell 2 weeks ago. It is unclear when the hallucinations started her daughter just notice them since she was given narcotics. She does not have history of confusion or hallucinations in the past. Today she states she is able to get up to the bathroom and walk in the [place] with PT. This am she had SOB and CP and transferred to ICU for observation and work up. She states her back is feeling better but now she has some CP with putting her hands above her head. She is somewhat confused but answers questions appropriately. denies CP, SOB, abdominal pain, one sided weakness, numbness tingling, bowel or bladder symptoms, N, V. Physical Exam Physical Exam: Gen: alert NAD lungs course breath sounds CV RRR strength hand cleaner and polisher biceps triceps 5/5 bilaterally hip flex plantar flex ext 5/5 bilaterally sensation intact to light and cool touch Results & Data Vital Signs (Past 12 Hours) Vital Signs Temp Pulse Pulse Pulse Resp BP BP 10/04/19 12:00 37.2 C 10/04/19 11:30 99 H 10/04/19 11:27 96 H 139/76 10/04/19 11:00 93 H 28 H 10/04/19 10:57 92 H 26 H 144/74 H 10/04/19 10:50 96 H 22 10/04/19 10:46 98 H 159/86 H 10/04/19 10:39 37.2 C 109 H 25 H 159/86 H 10/04/19 09:13 102 H 174/93 H 10/04/19 09:04 10/04/19 08:59 10/04/19 08:39 37.2 C 104 H 12 181/91 H 10/04/19 08:15 105 H 192/92 H 10/04/19 06:55 37.1 C 100 H 18 173/84 H Pulse Ox 10/04/19 12:00 10/04/19 11:30 10/04/19 11:27 10/04/19 11:00 93 10/04/19 10:57 92 10/04/19 10:50 93 02/05/20 10:46 10/04/19 10:39 93 10/04/19 09:13 95 10/04/19 09:04 95 10/04/19 08:59 88 L 10/04/19 08:39 93 10/04/19 08:15 94 10/04/19 06:55 93 Laboratory Results Abnormal lab results 10/04/19 10/04/19 10/04/19 Range/Units 05:15 05:15 05:15 WBC 20.08 H (4.8-10.8) K/uL RDW Std Deviation 51.2 H (36.4-46.3) fL RDW Coeff of Lucie 15.9 H (11.5-14.5) % Plt Count 76 L (130-400) K/uL MPV 12.2 H (7.4-10.4) fL Absolute Nucleated RBC 0.10 H (0-0) K/uL D-Dimer (0-500) ug/L FEU Sodium 134 L (136-145) mmol/L BUN 40 H (7-18) mg/dl Fasting Glucose 217 H (70-99) mg/dl Calcium 8.4 L (8.5-10.1) mg/dl Troponin I (0-0.045) ng/ml C-Reactive Protein 17.40 H (0-0.29) mg/dl 10/04/19 10/04/19 Range/Units 08:33 09:04 WBC (4.8-10.8) K/uL RDW Std Deviation (36.4-46.3) fL RDW Coeff of Lucie (11.5-14.5) % Plt Count (130-400) K/uL MPV (7.4-10.4) fL Absolute Nucleated RBC (0-0) K/uL D-Dimer > 86393 H* (0-500) ug/L FEU Sodium (136-145) mmol/L BUN (7-18) mg/dl Fasting Glucose (70-99) mg/dl Calcium (8.5-10.1) mg/dl Troponin I 5.920 H* (0-0.045) ng/ml C-Reactive Protein (0-0.29) mg/dl Diagnostic Findings No DVT within the right or left lower extremity CT chest- Moderate to marked cardiomegaly without evidence of pulmonary thromboembolic disease. Suggestion of pulmonary arterial hypertension. Interstitial pulmonary edema with small pleural effusions and mild dependent bibasilar atelectasis. Additional right greater than left bibasilar predominant ground glass densities suggest asymmetric alveolar pulmonary edema versus superimposed pneumonitis. Likely infectious or inflammatory solid nodules of the right middle lobe measure up to 5 mm with mild associated bronchiolitis. Mediastinal and hilar adenopathy, likely reactive. Splenomegaly.
--- NOTE | 2019-10-04 14:30 | Electrocardiogram Report ---
Test Reason : Blood Pressure : / mmHG Vent. Rate : 105 BPM Atrial Rate : 105 BPM P-R Int : 142 ms QRS Dur : 086 ms QT Int : 320 ms P-R-T Axes : 065 057 029 degrees QTc Int : 422 ms Sinus tachycardia Possible Left atrial enlargement Poor R wave progression, consider anterior WI vs. lead placement vs. LVH Abnormal ECG When compared with ECG of 29-SEP-2019 12:47, Non-specific change in ST segment in Lateral leads Confirmed by Adryan Hamilton ([id number]) on 10/04/2019 2:29:33 PM Referred By: REFERRED SELF Confirmed By:Adryan Hamilton
--- NOTE | 2019-10-04 14:34 | Electrocardiogram Report ---
Test Reason : Blood Pressure : / mmHG Vent. Rate : 094 BPM Atrial Rate : 094 BPM P-R Int : 148 ms QRS Dur : 086 ms QT Int : 352 ms P-R-T Axes : 054 043 021 degrees QTc Int : 440 ms Normal sinus rhythm Poor R wave progression, consider anterior MS vs. lead placement vs. LVH Abnormal ECG When compared with ECG of 04-OCT-2019 08:33, (unconfirmed) No significant change was found Confirmed by Adryan Hamilton ([id number]) on 10/04/2019 2:34:15 PM Referred By: REFERRED SELF Confirmed By:Adryan Hamilton
[2019-10-04] MEDS: ATORVASTATIN 20 MG TAB PO SCH (15:44)
[2019-10-04 16:32] LABS: Partial Thromboplastin Ratio 2.7
[2019-10-04] MEDS ORDERED: NITROGLYCERIN 0.6 MG/1 TAB 100 TAB BTL SL PRN (16:38)
[2019-10-04 16:50] LABS: Partial Thromboplastin Time 72.6 Seconds (21.0-31.0)
[2019-10-04] MEDS: CALCIUM 600MG + VIT D 400 IU TAB PO SCH (20:36)
[2019-10-04] MEDS ORDERED: TURMERIC ROOT EXTRACT PO SCH (21:00)
[2019-10-04] MEDS ORDERED: AMITRIPTYLINE HCL 10 MG TAB PO SCH (21:00)
[2019-10-04 23:24] LABS: Partial Thromboplastin Ratio 2.6
[2019-10-05] MEDS: TAPENTADOL HCL 50 MG TAB PO PRN (00:02)
[2019-10-05 00:09] LABS: Partial Thromboplastin Time 71.2 Seconds (21.0-31.0)
[2019-10-05] MEDS: NITROGLYCERIN SL 0.4 MG/TAB TAB SL PRN ×2 (00:14→00:27)
[2019-10-05] MEDS: NITROGLYCERIN 2% OINTMENT 30GM TUBE EXT SCH ×2 (01:56→05:48)
[2019-10-05] MEDS ORDERED: METOPROLOL TARTRATE 1 MG/ML VIAL IV ONE ×2 (04:56→05:01)
[2019-10-05] MEDS ORDERED: METOPROLOL TARTRATE 1 MG/ML VIAL IV STA ×3 (05:11→07:30)
[2019-10-05] MEDS ORDERED: FUROSEMIDE 40 MG in SYRINGE 0 ML IV ONE (05:36)
[2019-10-05 06:13] LABS: Mean Corpuscular Hgb Conc 34.2 g/dL (32-36); Nucleated RBC # (auto) 0.11 K/uL (0-0); Nucleated RBC % (auto) 0.4 %
[2019-10-05 06:25] LABS: Estimated Average Glucose 134 mg/dl; Hemoglobin A1C 6.3 % (4.5-5.6)
[2019-10-05 06:27] LABS: Hemoglobin 12.3 g/dL (12.0-16.0); Mean Corpuscular Hemoglobin 29.6 pg (25-34); Mean Corpuscular Volume 86.7 fL (80-100); RDW Coefficient of Variation 16.2 % (11.5-14.5); RDW Standard Deviation 51.7 fL (36.4-46.3); Red Blood Count 4.15 M/uL (4.2-5.4); White Blood Count 26.46 K/uL (4.8-10.8)
[2019-10-05 06:32] LABS: Albumin Level 1.6 gm/dl (3.4-5.0); BUN Creatinine Ratio 41.1 (10-20); Calcium 8.2 mg/dl (8.5-10.1); Creatinine Clr Calc Pharmacy 51.2 ml/min; Est GFR (African American) 62.9; Est GFR (Non-African American) 54.3; Potassium 4.1 mmol/L (3.5-5.1)
[2019-10-05 06:33] LABS: Platelet Count 45 K/uL (130-400)
[2019-10-05 06:34] LABS: Albumin Globulin Ratio 0.3 (0.9-2); Globulin 5.5 gm/dl (2.5-4.0); Platelet Estimate Decreased (Normal); Total Protein 7.1 gm/dl (6.4-8.2)
[2019-10-05 06:39] LABS: Partial Thromboplastin Ratio 2.7
--- NOTE | 2019-10-05 07:00 | XRay Report ---
XR chest 1V portable CLINICAL HISTORY: chf COMPARISON STUDY: Chest radiograph September 27, 2019. Chest CT October 04, 2019. FINDINGS: There is no pneumothorax. There are trace bilateral pleural effusions. Moderate cardiomegal y is noted. Interstitial thickening and airspace opacities are greater within the right lung. Finding s have progressed since chest CT of October 04, 2019. IMPRESSION: 1. Progression of interstitial thickening consistent with interstitial pulmonary edema. Right lung ai rspace opacities favor alveolar edema although superimposed pneumonia could appear similar. 2. Trace bilateral pleural effusions. ACT 112: Negative or not required by law. Electronically signed by: Ketan Mejía M.D. 10/05/2019 6:59 AM
[2019-10-05 07:03] LABS: Partial Thromboplastin Time 71.9 Seconds (21.0-31.0)
[2019-10-05] MEDS ORDERED: LORazepam 0.5 MG/1 ML VIAL IV ONE (07:22)
[2019-10-05 07:43] LABS: Base Excess ABG -1.3 mEq/L (-9-1.8); HCO3 ABG 21 mmol/L (19-24); Oxygen Saturation ABG 97.5 % (90-95); PCO2 ABG 27 mmHg (35-46); PO2 ABG 88 mmHg (80-95)
[2019-10-05 07:45] LABS: Allen Test Pos (Pos)
--- NOTE | 2019-10-05 07:48 | XRay Report ---
XR chest 1V portable HISTORY: Shortness of breath. COMPARISON: Chest 10/05/2019. FINDINGS: No pneumothorax. Trace bilateral pleural effusions. The heart remains mildly enlarged. Righ t greater than left interstitial vascular thickening with patchy right medial lung base densities per sist. This favors moderate asymmetric pulmonary edema. A superimposed pneumonia within the right lung base could also have a similar appearance. IMPRESSION: 1. No change in the moderate asymmetric pulmonary edema. 2. Trace bilateral pleural effusions persist. 3. Right medial lung base airspace opacity could be due to the pulmonary edema or a pneumonia. ACT 112: Negative or not required by law. Electronically signed by: Danish Hwang M.D. 10/05/2019 7:47 AM
[2019-10-05] MEDS: HEPARIN SODIUM/DEXTROSE 25,000 UNITS/500 ML BAG IV SCH (08:14)
--- NOTE | 2019-10-05 08:53 | CT Scan Report ---
HEAD CT NONCONTRAST CT DOSE: 1478.68 mGycm HISTORY: Altered mental status. TECHNIQUE: Multiaxial CT images of the head were performed without the use of intravenous contrast. A utomated exposure control was utilized for this study. A dose lowering technique was utilized adheri ng to the principles of ALARA. Comparison: Head CT 09/29/2019. Findings: Fluid levels within the right frontal sinus and right ethmoid air cells which have improved in the interval. The mastoid air cells are clear. Extensive motion artifact within the brain resulti ng in suboptimal evaluation. Small focal areas of intraparenchymal/subarachnoid hemorrhage within the left frontal lobe near the high convexity. Dominant focus measures approximately 1.5 cm. The ventric les are normal in size. Impression: 1. Suboptimal study due to motion artifact. 2. Small focal areas of intraparenchymal/subarachnoid hemorrhage within the left frontal lobe near th e high convexity. These findings were discussed with Dr. Pascal at 9:10 AM on 10/05/2019. ACT 112: Negative or not required by law. Electronically signed by: Danish Hwang M.D. 10/05/2019 9:46 AM
[2019-10-05] MEDS ORDERED: ASCORBIC ACID 500 MG TAB PO SCH (09:00)
[2019-10-05] MEDS ORDERED: CHOLECALCIFEROL 1,000 UNITS 25 MCG TAB PO SCH (09:00)
[2019-10-05] MEDS ORDERED: ASPIRIN 81 MG ECTAB PO SCH (09:00)
[2019-10-05] MEDS ORDERED: CYANOCOBALAMIN 500 MCG TABLET (VITAMIN B-12) PO SCH (09:00)
[2019-10-05] MEDS ORDERED: NON-FORMULARY MEDICATION (Lutein-Zeaxanthin 1 CAP) PO SCH (09:00)
--- NOTE | 2019-10-05 09:02 | Cardiology Progress Note ---
Date of Service October 05, 2019 Assessment & Plan (1) Intracranial hemorrhage: CT performed due to her progressive change in mental status reveals a small focal areas of intraparenchymal/subarachnoid hemorrhage within the left frontal lobe near the high convexity. -Heparin infusion has been discontinued. -ASA discontinued. (2) NSTEMI (non-ST elevated myocardial infarction): Repeat EKG currently pending. Initial troponin yesterday 10/04/2019 at 8:33 AM was 5.9, it is trended down to 4.3 today. She had been treated with aspirin, unfractionated heparin, and received 1 dose of Plavix yesterday. Given findings of intracranial hemorrhage, antiplatelet therapy and anticoagulation have been discontinued. Continue metoprolol. She is unable to take orals, will transition just to IV, she received 2 doses of IV metoprolol earlier this morning already. (3) Acute diastolic heart failure: She received a liter of normal saline post contrasted head CT yesterday. This likely to turn to volume overload. 40 furosemide has been administered, will start Mckeon catheter. CT scan performed yesterday suggested findings of chronic pulmonary hypertension with mild dilatation of the pulmonary artery. It is likely that the right ventricular systolic dysfunction noted on echo yesterday was a chronic finding. 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 Ferreira was present on remote liver biopsy performed in 2008 as documented in the GI notes in her outpatient [facility] record. Splenomegaly and findings of cirrhosis noted on imaging studies this hospital stay. Thrombocytopenia was present at the time of her orthopedic surgery performed in February,. Patient was initially not on pharmacologic DVT prophylaxis in this admission when she presented with intractable back pain due to concerns of thrombocytopenia. The platelet counts had remained in the range of 100,000- 76,000 yesterday. Due to concerns of pulmonary embolism versus acute coronary syndrome, antiplatelet therapy and anticoagulation has been initiated, platelet count however is now 45,000, with findings of intracranial hemorrhage on CT. -Considerations in process to transfer patient to tertiary care given intracranial hemorrhage findings. Subjective Patient seen. She is currently sleeping soundly on BiPAP, sinus tachycardia 126 bpm was present and her systolic blood pressure was 149 mmHg. She apparently did poorly overnight last night with on and off again back pain, chest pain, and shortness of breath. Respiratory distress noted, as well as sinus tachycardia. She received treatment with Nucynta, some long nitroglycerin, and received a dose of IV furosemide early this morning but is yet to void a significant amount. She is currently being supported on BiPAP, and is resting comfortably. Review of Systems Review of Systems: Unobtainable due to reduced consciousness Physical Exam Physical Exam: Temp Pulse Resp BP Pulse Ox 37 C 120 H 22 149/80 H 96 10/05/19 03:35 10/05/19 08:09 10/05/19 07:25 10/05/19 08:09 10/05/19 07:25 Constitutional: Currently lethargic, on BiPAP Respiratory: Mildly decreased breath sounds bilaterally at the bases Cardiovascular: Rate/Rhythm: regular rhythm and + tachycardic Heart Sounds: no murmur Vessels: no JVD Extremities: no edema Gastrointestinal (Abdomen): normal bowel sounds, soft, nontender, no hepatosplenomegaly Neurologic: Lethargic Results & Data Vital Signs (Past 12 Hours) Vital Signs Temp Pulse Pulse Pulse Resp BP BP 10/05/19 08:09 120 H 149/80 H 10/05/19 07:25 134 H 22 10/05/19 07:06 125 H 26 H 10/05/19 05:58 113 H 28 H 10/05/19 05:02 124 H 147/86 H 10/05/19 04:58 153 H 189/104 H 10/05/19 03:35 37 C 110 H 22 182/94 H 10/05/19 00:48 100 H 24 10/05/19 00:27 104 H 26 H 10/05/19 00:20 105 H 26 H 10/04/19 23:45 37.1 C 100 H 22 BP Pulse Ox 10/05/19 08:09 10/05/19 07:25 193/113 H 96 10/05/19 07:06 98 10/05/19 05:58 97 10/05/19 05:02 10/05/19 04:58 10/05/19 03:35 92 10/05/19 00:48 158/77 H 96 10/05/19 00:27 159/80 H 95 10/05/19 00:20 172/90 H 95 10/04/19 23:45 164/91 H 96 Laboratory Results EKG performed this morning for 50 2 AM revealed sinus tachycardia 154 bpm with poor R wave progression, the computer interpretation describes ST elevation, this is very difficult to discern given the tachycardia. I do not think it meets criteria for an ST segment elevation myocardial infarction. KG performed at 12:16 AM revealed sinus tachycardia 106 bpm with poor R wave progression, no significant ST elevation. Diagnostic Findings Cardiac Enzymes 10/04/19 10/04/19 10/04/19 Range/Units 08:33 14:54 20:17 AST (15-37) U/L Troponin I 5.920 H* 5.160 H* 5.200 H* (0-0.045) ng/ml 10/05/19 10/05/19 Range/Units 06:05 06:05 AST 132 H (15-37) U/L Troponin I 4.370 H* (0-0.045) ng/ml Coagulation 10/04/19 10/04/19 10/05/19 Range/Units 15:59 22:52 06:05 APTT 72.6 H* 71.2 H* 71.9 H* (21.0-31.0) Seconds CBC 10/05/19 Range/Units 06:05 WBC 26.46 H (4.8-10.8) K/uL RBC 4.15 L (4.2-5.4) M/uL Hgb 12.3 (12.0-16.0) g/dL Hct 36.0 L (37-47) % Plt Count 45 L (130-400) K/uL Comprehensive Metabolic Panel 10/05/19 Range/Units 06:05 Sodium 136 (136-145) mmol/L Potassium 4.1 (3.5-5.1) mmol/L Chloride 104 (98-107) mmol/L Carbon Dioxide 23 (21-32) mmol/L BUN 42 H (7-18) mg/dl Creatinine 1.03 (0.6-1.2) mg/dl Glucose 158 H (70-99) mg/dl Calcium 8.2 L (8.5-10.1) mg/dl AST 132 H (15-37) U/L ALT 48 (12-78) U/L Alkaline Phosphatase 191 H (45-117) U/L Total Protein 7.1 (6.4-8.2) gm/dl Albumin 1.6 L (3.4-5.0) gm/dl Intake and Output 02/01/1610/05/19 10/05/19 22:59 06:59 14:59 Intake Total 159.2 / 7204.738 9210.900 / 1699.100 172.900 / 172.900 Output Total 223 / 475 250 / 475 Balance -63.8 / 1224.100 917.900 / 1224.100 172.900 / 172.900 Intake: IV 159.2 / 2369.279 0870.900 / 1699.100 172.900 / 172.900 HEPARIN SODIUM/DEXTROSE 25,000 159.2 / 327.100 167.900 / 327.100 172.900 / 172.900 units In 500 ml @ 1,100 UNITS/ HR 22 mls/hr IV .[id number] [facility] Rx #:[id number] Nss 1000ML 1,000 ml @ 80 mls/hr 1000 / 1000 IV .[id number] [facility] Rx#:[id number] Output: Urine 220 / 220 Urine Amount (Catheter) 250 / 250 Straight 250 / 250 # Bowel Movements 3 / 5 Other: # Unmeasured Voids 1 Weight 105 kg
[2019-10-05] MEDS ORDERED: PROTAMINE SULFATE IV ONE (09:45)
[2019-10-05] MEDS ORDERED: DEXTROSE 5% IV ONE (09:45)
[2019-10-05] MEDS: ATORVASTATIN 20 MG TAB PO SCH (10:09)
[2019-10-05] MEDS: MULTIVITAMIN TAB PO SCH (10:09)
[2019-10-05] MEDS: CALCIUM 600MG + VIT D 400 IU TAB PO SCH (10:09)
[2019-10-05] MEDS: SACCHAROMYCES BOULARDII 250 MG CAP PO SCH (10:09)
[2019-10-05] MEDS: DICLOFENAC SOD 1% GEL 100 GM TUBE EXT SCH (10:10)
[2019-10-05] MEDS: PANTOprazole 40 MG TAB PO SCH (10:10)
--- NOTE | 2019-10-05 10:27 | Discharge Summary ---
Date of Service October 05, 2019 Admission HPI Per Admitting Provider Chief Complaint: 74-year-old female who presents the ED for evaluation of back pain. Patient with history of chronic back and SI joint pain. Patient was seen in the ED on 09/27. She was given IV morphine and discharged home on p.o. Sanderson. Patient reports that since taking the Sanderson, she is developed confusion and hallucinations. Last dose of Sanderson was last night around midnight. The Sanderson has not been helping her back pain. She denies any unilateral weakness, numbness, tingling. No facial droop, slurred speech, difficulty speaking or understanding. Pain is located over the bilateral SI joints with radiation to both hips. Denies any radiation radiation of the pain into the legs. No numbness, tingling, weakness to the legs. Denies loss of bowel or bladder function. About 1 week ago, patient reports she was running fevers and had sinus congestion. Influenza testing on 09/27 negative. Patient denies chest pain shortness of breath. No lightheadedness, dizziness, diaphoresis, syncopal events. She denies abdominal pain, nausea, vomiting, diarrhea. No urinary symptoms. In the ED, lumbar spine CT shows severe multilevel facet arthrosis. Moderate multilevel degenerative disc disease within the lumbar spine. Head CT negative for acute intracranial findings however suggest acute sinusitis. CT ABD/pelvis negative for acute findings. Labs unremarkable. Patient has remained hemodynamically stable. She was given IV Benadryl, IV fentanyl, IV Toradol, IV prochlorperazine, IVF, IV Tylenol. Primary Care Provider: Gorge Garibay, Admission Exam Per Admitting Provider Constitutional: WD/WN, vitals as above Eyes: PERRL, conjunctivae normal, anicteric sclerae ENMT: external ear and nose normal, oropharynx normal Respiratory: normal respiratory effort, lungs clear to auscultation Cardiovascular: Rate/Rhythm: regular rate and regular rhythm Vessels: normal peripheral pulses Extremities: no edema Gastrointestinal (Abdomen): normal bowel sounds, soft, nontender, no hepatosplenomegaly Musculoskeletal: no cyanosis or clubbing, extremities motor strength 5/5 Spine: + sacroiliac joint abnormality (Tenderness over both SI joints) Skin: no rashes, warm and dry Neurologic: PERRL, EOMI, accommodation nl, no face palsy, no dysarthria Psychiatric: A+Ox3, euthymic affect Principal Diagnosis Intracranial Bleed Elevated Troponins Chest Pain Leukocytosis Thrombocytopenia FERREIRA GERD Elevated R Heart Pressure on Echo Discharge Exam ROS-No Headache, No Visual Changes, No Nausea, No Vomiting, No Fever, No Chills, No Neck Pain or Stiffness, + Chest Pain, No Palpitations, + SOB, No ROMAN, No Cough, No Sputum, No Wheezing, No Abdominal Pain, No Diarrhea, No Hematemesis, No Hemoptysis, No Unexpected Weight Loss, No Flank pain, No Melena, No Hematochezia, No Frequency, No Urgency, No Burning, No Hematuria, No Rashes, No Diaphoresis. Appetite is Normal, Confused Physical Exam Gen-AAO x 2, Altered, febrile Head-NCAT, EOMI, PERRLA, Anicteric Sclera, No Posterior Pharyngeal Erythema Neck-Supple, No JVD, No Thyromegaly, No Masses, No LAD, No Bruits Lungs-Clear to Auscultation Bilaterally, No Rales, No Rhonchi, No Wheezing, No Crepitus Chest-No S4, +S1, +S2, No S3, No Murmurs, No Rubs, No Gallops, No Ectopy Abdomen-Soft, Bowel Sounds Present, Non Tender, Non Distended, No Hepatomegaly, No Splenomegaly, No Palpable Masses, No Rebound, No Rigidity, No Guarding Musculoskeletal-Full Range of Motion Bilaterally, No CVAT Extremities-No Cyanosis, No Clubbing, No Edema Nuero-Cranial Nerves II-XII grossly intact, Motor WNL, DTRs WNL, Strength WNL, Non Focal Psych-Altered,but cooperative Discharge Data Allergies Allergy/AdvReac Type Severity Reaction Status Date / Time No Known Allergies Allergy Verified 09/29/19 14:06 Consultations 09/29/19 15:36 ED Decision to Admit Stat 09/29/19 18:29 Consult Orthopedic Surgery Routine 09/30/19 15:44 Consult Pain Management Routine 10/02/19 04:30 Consult Neurology Routine 10/04/19 09:14 Consult Cardiology Routine 10/04/19 09:49 Consult Cardiology Routine Ordered Studies 09/29/19 12:35 CT abd pelvis IV con only Stat CT head/brain wo con Stat CT lumbar spine wo con Stat 10/02/19 17:09 MR brain wo/w con Routine 10/02/19 17:10 MR lumbar spine wo con Routine US carotid doppler BI Routine 10/04/19 09:58 US venous doppler LE BI Stat 10/04/19 11:02 CT angio chest PE protocol Stat 10/05/19 07:33 CT head/brain wo con Stat Current Diagnoses Thrombocytopenia, unspecified (10/01/19) Other chronic pain (10/01/19) Essential (primary) hypertension (10/01/19) Non-ST elevation (NSTEMI) myocardial infarction (10/01/19) Acute diastolic (congestive) heart failure (10/01/19) Nontraumatic intracranial hemorrhage, unspecified (10/01/19) Acute sinusitis, unspecified (10/01/19) Gastro-esophageal reflux disease without esophagitis (10/01/19) Fatty (change of) liver, not elsewhere classified (10/01/19) Unequal limb length (acquired), unspecified site (10/01/19) Sacrococcygeal disorders, not elsewhere classified (10/01/19) Dorsalgia, unspecified (10/01/19) Hallucinations, unspecified (10/01/19) Encounter for prophylactic measures, unspecified (10/01/19) Presence of left artificial knee joint (10/01/19) Allergies No Known Allergies Allergy (Verified 09/29/19 14:06) Height/Weight/Isolation Height 5 ft 1 in Weight 105 kg Chemistry 10/04/19 10/05/19 05:15 06:05 Sodium 134 L 136 Potassium 3.8 4.1 Chloride 100 104 Carbon Dioxide 26 23 Anion Gap 8.0 9.0 BUN 40 H 42 H Creatinine 1.03 1.03 Glucose 158 H Microbiology 10/05/19 09:13 Blood Aerobic Blood Culture - Pending 10/05/19 09:13 Blood Anaerobic Blood Culture - Pending 10/05/19 09:10 Blood Aerobic Blood Culture - Pending 10/05/19 09:10 Blood Anaerobic Blood Culture - Pending Hospital Course (1) Intracranial hemorrhage: Altered Mental status today, was pancultured sec to Leukocytosis, CT Head done and revealed IC Bleed [facility] Accepted in transfer, Said to keep SBP<140 and give 1 unit of platelets (Keep above 50K) Dr [facility] ICU accepted the patient, D/W Neurology at [facility] as well. (2) Intractable back pain: -Patient presenting from home with reports of intractable low back/SI joint pain and hallucinations -Seen in the ED on 09/27 and discharged home on Sanderson -Patient reports continued pain despite use of Sanderson -CT lumbar spine in the ED showing severe multilevel facet arthrosis. Moderate multilevel degenerative disc disease within the lumbar spine. -Both SI joints tender to palpation, patient may benefit from SI joint injection -Spine Ortho consult, case discussed with Dr. Philip; starting Decadron 8 mg every 6 hours and Toradol 15 mg every 6 hours -PT/OT -Patient seen by Orthopedics - recommend pain management consult, as her condition is difficult to treat and nonoperable -Patient seen by pain management (Dr. Webb) and pain medications were adjusted - pt was started on PO Nucynta and topical voltaren gel, as outpatient, pt follows up with pain management in [place]. -Yesterday (10/02), pt was actually drowsy, would not open her eyes unless prompted several times, very restless, moving out of bed - this is quite different from previous day. She appears uncomfortable and keeps holding her left hip. - stopped Nucynta, mental status change likely d/t new med - nucynta, re-started pt back on steroid and NSAID for pain control, will try to avoid any opioids or any other medications that acn significantly affect mental status of the pt - mental status and pain control much improved today (10/03), pt back to baseline (3) Leukocytosis: Was placed on Decadron by Ortho, was on Augmentin for Sinusitis, WBCs now 26.7, Pancultured today (4) Fatty liver disease, nonalcoholic: -Platelets 45 today, will give PLTs (5) Thrombocytopenia: -Acute on Chronic -Due to underlying FERREIRA and IV heparin for elevated troponins -Baseline platelets 100K -currently ~ 45k (6) Hypertension: -Will keep SBP<140 (7) Hallucinations: -on admission believed to be secondary to Sanderson -Head CT negative for acute intracranial findings -Patient said that she has been having hallucinations for the past 2 to 3 weeks, seems as she was not using any pain medications, she also reports some visual changes when her vision rotated by 90 degrees? - 2 incidents - one about 2 weeks ago, and the other one about 1 month ago, she was supposed to see her eye doctor, on Wednesday however she was admitted here due to pain - Neurology was consulted for further evaluation, EEG, Brain MRI and L-spine MRI ordered, Carotid doppler obtained - EEG - negative for seizure activity, posit. for encephalopathy - MRI brain - c/w acute sinusitis, no acute ischemia/stroke - L-spine MRI - significant central canal narrowing at L2-L3 and L3-L4 - Carotid U/S - no significant stenosis to explain the symptoms - hallucinations believed to be secondary to acute sinusitis/ and medications - pt will need ophthalmology evaluation (8) Acute sinusitis: -A few days ago, patient had fever and URI type symptoms -Findings of acute sinusitis noted on head CT -Started Augmentin, Abx to be adjusted. (9) GERD (gastroesophageal reflux disease): -Continue PPI (10) DVT prophylaxis: -SCDs due to thrombocytopenia Dispo: Patient lives alone, however recently she has been having hallucinations. Pt's daughter lives in [place], and is worried because she feels that patient is not safe at home, given these new hallucinations. CM contacted to discuss further, possible home health. Total Time Total Time Spent Total Time Spent (In Minutes): 60 mins Total Time Includes: Examination of the Patient, Discharge Planning, Medication Reconciliation and Communication With Other Providers Discharge Plan Discharge Items Patient Disposition: Transfer Acute Care Hospital Reason For Visit: INTRACTABLE BACK PAIN Discharge Diagnosis: Intracranial Bleed Elevated Troponins Chest Pain Leukocytosis Thrombocytopenia FERREIRA GERD Elevated R Heart Pressure on Echo Condition on Discharge: Critical Health Concerns: Worsening Head Bleed Activity: As commented below Activity Comment: Bedrest Lifting: None Exercise/Sports: None Driving/Machine Use: None Non-emergency contact: Specialist and Neurologist Call non-emergency contact if: you have any medication questions Follow-up/Referrals: Gorge Garibay DO [Primary Care Provider] - Diet: Heart Healthy Diet Comment: KEI Philip Attending Provider Instructions: Panculture Pending Pending Studies at Discharge: Yes Studies:: Blood and Urine Cultures Stand-Alone Forms: My [facility] Skilled Items Patient informed of condition?: Yes DNR: No Discharge Level of Care: Other Communicable Disease: No Discharge Prognosis: Stable Lines: Peripheral IV Urinary Catheter: Yes Medications and DC Order Prescriptions: New atorvastatin 20 mg Tablet 20 mg PO QAM Qty: 30 RF: 0 metoprolol succinate 50 mg Tablet Extended Release 24 Hr 100 mg PO QAM Qty: 30 RF: 0 pantoprazole 40 mg Tablet,Delayed Release (Dr/Ec) 40 mg PO QAM Qty: 30 RF: 0 nitroglycerin [Nitrostat] 0.4 mg Tablet, Sublingual 0.4 mg sublingual PRN PRN (Reason: chest pain) Qty: 30 RF: 0 lisinopril [Zestril] 40 mg Tablet 40 mg PO QAM Qty: 30 RF: 0 Florastor 250 mg Capsule 250 mg PO DAILY Qty: 30 RF: 0 morphine 4 mg/mL Syringe 4 mg IV Q6H PRN (Reason: pain) Qty: 10 RF: 0 Continued meclizine 25 mg Tablet 25 mg PO DAILY PRN (Reason: Vertigo) RF: 0 esomeprazole magnesium [Nexium] 40 mg Capsule,Delayed Release(Dr/Ec) 40 mg PO QAM RF: 0 acetaminophen [Tylenol Extra Strength] 500 mg Tablet 500 mg PO Q6H PRN (Reason: Pain) RF: 0 Discontinued multivitamin Tablet 1 tab PO QAM RF: 0 ascorbic acid (vitamin C) [Vitamin C] 1,000 mg Tablet 1 g PO QAM RF: 0 meloxicam 15 mg Tablet 15 mg PO QAM RF: 0 metoprolol succinate [Toprol XL] 100 mg Tablet Extended Release 24 Hr 100 mg PO QAM RF: 0 sumatriptan succinate [Imitrex] 50 mg Tablet 50 mg PO DAILY PRN (Reason: MIGRAINES) RF: 0 cyanocobalamin (vitamin B-12) [Vitamin B-12] 1,000 mcg Tablet 1,000 mcg PO QAM RF: 0 amitriptyline 25 mg Tablet 25 mg PO HS RF: 0 lisinopril-hydrochlorothiazide [Zestoretic] 20-25 mg Tablet 2 tab PO QAM RF: 0 Calcium 600 + D(3) 600 mg calcium- 200 unit Capsule 1 cap PO BID RF: 0 cholecalciferol (vitamin D3) [Vitamin D3] 2,000 unit Capsule 2,000 unit PO QAM RF: 0 lutein-zeaxanthin 25-5 mg Capsule 1 cap PO QAM RF: 0 turmeric root extract 1,053 mg Tablet 2,000 mg PO HS RF: 0 hydrocodone-acetaminophen [Vicodin HP] 10-300 mg Tablet 1 tab PO HS PRN (Reason: Pain) RF: 0 Discharge Orders: Discharge Order (Routine); Ordered 10/05/19 Ordered By: Ruiz Sears/Other Patient Handouts: Prediabetes, A1C Admission Data Admit Date/Time: 10/01/19 14:53 Attending Provider: Ruiz Pascal Admit Provider: Trish Adames Primary Care Provider: Gorge Garibay V. Other Providers: Max Goldstein ; Trish Adames ; Micheal Philip ; Luciano Hampton ; Ashwini Webb ; Terence Kearney ; Gi Goetz ; Rhina Pascual ; Micheal Carmen ; Rhina Nogueira ; Delio Torres ; Kenny Nguyen ; Rodolfo Ortega ; Ji York ; Monster Song ; Alberto Graham ; Deanna Montague ; Rhina Peterson ; Gordon Nieves
--- NOTE | 2019-10-05 10:40 | Critical Care Consultation ---
Date of Consultation October 05, 2019 Assessment & Plan (1) Subarachnoid hemorrhage: Patient with evidence of acute spontaneous nontraumatic subarachnoid hemorrhage and intraparenchymal bleed. She received protamine sulfate to reverse the heparin at this time. We are also getting give her platelets given her thrombocytopenia related to her cirrhosis. We will arrange for transfer to [facility]. We are awaiting a bed. Maintain head of the bed elevated above 35 degrees. Keep blood pressure below 140 systolically. We will give nicardipine as needed. Follow neurological exam every 1 hours. Neurology consult. CTA of her head and neck. We are removing the BiPAP at this time given that her oxygen saturations are okay. We need to do everything we can to prevent increased ICP. Blood gases indicate alkalemia. We will try to prevent hyperventilating her in the long run as this could decrease cerebral brain perfusion. She is also having an increased troponin leak and an NSTEMI. Unfortunately, we are not able to anticoagulate her at this time given her head bleed. Would avoid antiplatelets at this time. We are checking INR. She does bleeding from her [place] as well. She is coagulopathic as previously mentioned. We are making her strictly n.p.o. She would benefit from a transfer to a center that is accustomed to subarachnoid hemorrhages and intraparenchymal bleeds. She would also benefit from neurosurgical evaluation which we do not have. Not any Medical Center. She may need an EVD if her symptoms worsen. At this point, I am holding on giving her any mannitol. We will check sodiums every 4 hours given that she is at risk for cerebral salt wasting and SIADH. She is quite agitated at the moment and we are going to avoid any mind altering substances. I do have her on a Precedex drip at this point which should also help her tachycardia and her agitation without reducing her respiratory drive. We will continue to give as needed Lasix for her diastolic heart failure exacerbation. This will have to be very judicious giving that we are monitoring her sodium and blood pressure parameters. (2) Intracranial hemorrhage: (3) Acute diastolic heart failure: (4) Fatty liver disease, nonalcoholic: (5) Acute encephalopathy: History of Present Illness Reason for Consultation: Intraparenchymal brain bleed and subarachnoid hemorrhage Requesting Physician: Dr. Pascal Attending Physician: Ruiz Pascal, DO History of Present Illness 74-year-old female with a past medical history of diastolic heart failure, hypertension, fatty liver disease with possible cirrhosis, gastroesophageal reflux disease who was transferred to the ICU overnight due to increasing altered mental status and hypertension. She had a CT of her head performed today at 8:49 AM which demonstrated small focal areas of intraparenchymal/subarachnoid hemorrhage within the left frontal lobe near the high convexity. He is actually been here since 29 September. Cardiology has been on board in her care for 9 ST elevation myocardial infarction. She has been on aspirin and heparin and received a dose of Plavix yesterday. Her troponin peaked at 5.9. We did administer protamine sulfate and stop the heparin drip today due to the intraparenchymal bleed that was seen. She also had some heart failure today and has been on some BiPAP and received Lasix. History is very limited from the patient and she is altered. She is able to follow commands intermittently. Most of the history that I am able to obtain notes from the discussion with the physicians and the chart review. Laboratory data is significant for a white cell count of 26,460. Platelet count of 45,000. PTT is supratherapeutic at 71.9. We do not have a recent INR. There was some concern of possible pulmonary embolism and a CTA of the chest was obtained yesterday which demonstrated marked cardiomegaly and possible pulmonary hypertension. There were some interstitial edema with small bilateral effusions seen as well. Splenomegaly was noted. She had a brain MRI on 10/02/2019 which demonstrated no acute intracranial pathology and acute right-sided paranasal sinusitis. She has been on Augmentin for sinusitis. She had an echocardiogram on 10/04/2019 which demonstrated ejection fraction of 55 to 60%. The right ventricle appeared mildly enlarged with diffuse hypokinesis. There is mild aortic regurgitation. Estimated pulmonary artery systolic pressure was 45 mmHg. There is grade 2 diastolic dysfunction noted as well. The left atrium was dilated. Mild perihepatic ascites noted. Renal function has generally been unremarkable. Urine on 10/02/2019 was negative. Blood cultures from today are pending. Her temperature is creeping up to 99.9 at 930 this morning. Allergies Allergy/AdvReac Type Severity Reaction Status Date / Time No Known Allergies Allergy Verified 09/29/19 14:06 Home Medications Home Medications Medication Instructions Recorded Confirmed Type Calcium 600 + D(3) 1 cap PO BID 03/09/19 09/29/19 History amitriptyline 25 mg PO HS 03/09/19 09/29/19 History ascorbic acid (vitamin C) [Vitamin 1 g PO QAM 03/09/19 09/29/19 History C] cholecalciferol (vitamin D3) 2,000 unit PO QAM 03/09/19 09/29/19 History [Vitamin D3] cyanocobalamin (vitamin B-12) 1,000 mcg PO QAM 03/09/19 09/29/19 History [Vitamin B-12] esomeprazole magnesium [Nexium] 40 mg PO QAM 03/09/19 09/29/19 History lisinopril-hydrochlorothiazide 2 tab PO QAM 03/09/19 09/29/19 History [Zestoretic] lutein-zeaxanthin 1 cap PO QAM 03/09/19 09/29/19 History meclizine 25 mg PO DAILY PRN 03/09/19 09/29/19 History meloxicam 15 mg PO QAM 03/09/19 09/29/19 History metoprolol succinate [Toprol XL] 100 mg PO QAM 03/09/19 09/29/19 History multivitamin 1 tab PO QAM 03/09/19 09/29/19 History sumatriptan succinate [Imitrex] 50 mg PO DAILY PRN 03/09/19 09/29/19 History turmeric root extract 2,000 mg PO HS 03/09/19 09/29/19 History acetaminophen [Tylenol Extra 500 mg PO Q6H PRN 09/29/19 09/29/19 History Strength] hydrocodone-acetaminophen [Vicodin 1 tab PO HS PRN 09/29/19 09/29/19 History HP] Saccharomyces boulardii [Florastor] 250 mg PO DAILY #30 cap 10/05/19 Rx atorvastatin 20 mg PO QAM #30 tab 10/05/19 Rx lisinopril [Zestril] 40 mg PO QAM #30 tab 10/05/19 Rx metoprolol succinate 100 mg PO QAM #30 tab 10/05/19 Rx morphine 4 mg IV Q6H PRN #10 ml 10/05/19 Rx nitroglycerin [Nitrostat] 0.4 mg SUBLINGUAL PRN PRN #30 tab 10/05/19 Rx pantoprazole 40 mg PO QAM #30 tab 10/05/19 Rx Patient History Medical History Acquired leg length discrepancy Per patient formal leg length films were performed as an outpatient with a 1.5 inch leg length discrepancy after TKA. Chronic back pain Fatty liver disease, nonalcoholic GERD (gastroesophageal reflux disease) Hypertension Kidney stones Migraine Obesity Osteoarthritis Scoliosis Thrombocytopenia Surgical History History of colonoscopy History of esophagogastroduodenoscopy (EGD) History of left knee replacement History of tonsillectomy S/P epidural steroid injection s/p right sacroiliac injection (03/07/19) S/P PITO-BSO Family History Mother Cervical cancer Family history of diabetes mellitus, Onset Age: 80 Brother Family history of esophageal cancer, Onset Age: 61 Social History Preferred Language: Spanish Communication Ability: Effective Circulation Clerk Required: No Beliefs That Will Affect Care: None marital status: Current Living Situation: Alone Other Information That Helps Us Care for You: No Feels Safe at Home: Yes Safety Concerns: Feels Safe At This Time Smoking Status: Never smoker Second Hand Exposure: No ; Hx Alcohol Use: Yes Alcohol type: wine Hx Substance Use: No Review of Systems Review of Systems: Unobtainable due to cognitive status Physical Exam Constitutional: Patient is patient is obese. She is lying in bed. She has a BiPAP mask in place. She is saturating well. She does follow commands. Eyes: Her eyes are closed. She refused to open her eyes. I did manually open her eyes and they look to be equal and round and reactive to light. ENMT: Ears: + hearing impairment BiPAP in place Neck: normal visual inspection Respiratory: normal respiratory effort, lungs clear to auscultation Cardiovascular: RRR, no murmur, no edema Gastrointestinal (Abdomen): normal bowel sounds, soft, nontender, no hepatosplenomegaly Musculoskeletal: no cyanosis or clubbing, extremities motor strength 5/5 Skin: no rashes, warm and dry Neurologic: No obvious focal deficits. She does appear mildly encephalopathic. She appears to be a bit in distress given that she is wearing a BiPAP. Psychiatric: Orientation: alert Results & Data ([facility]) Vital Signs (Past 12 Hours) Vital Signs Temp Pulse Pulse Pulse Resp BP BP 10/05/19 09:30 99.9 F H 121 H 141/81 H 10/05/19 09:15 120 H 137/73 10/05/19 09:00 121 H 43 H 132/72 10/05/19 08:46 131 H 36 H 154/85 H 10/05/19 08:42 129 H 36 H 10/05/19 08:09 120 H 149/80 H 10/05/19 08:00 128 H 35 H 149/80 H 10/05/19 07:45 128 H 171/95 H 10/05/19 07:31 128 H 157/97 H 10/05/19 07:30 126 H 10/05/19 07:25 134 H 22 10/05/19 07:06 125 H 26 H 10/05/19 07:00 135 H 29 H 193/113 H 10/05/19 05:58 113 H 28 H 10/05/19 05:02 124 H 147/86 H 10/05/19 04:58 153 H 189/104 H 10/05/19 03:35 98.6 F 110 H 22 182/94 H 10/05/19 00:48 100 H 24 10/05/19 00:27 104 H 26 H 10/05/19 00:20 105 H 26 H 10/04/19 23:45 98.8 F 100 H 22 BP Pulse Ox 10/05/19 09:30 99 10/05/19 09:15 98 10/05/19 09:00 98 10/05/19 08:46 100 10/05/19 08:42 10/05/19 08:09 10/05/19 08:00 91 10/05/19 07:45 98 10/05/19 07:31 97 10/05/19 07:30 97 10/05/19 07:25 193/113 H 96 10/05/19 07:06 98 10/05/19 07:00 97 10/05/19 05:58 97 10/05/19 05:02 10/05/19 04:58 10/05/19 03:35 92 02/06/20 00:48 158/77 H 96 10/05/19 00:27 159/80 H 95 10/05/19 00:20 172/90 H 95 10/04/19 23:45 164/91 H 96 I personally were reviewed pertinent chest, brain imaging and echocardiogram Coding Level of Care Code Critical Care 1st 30-74 mins Diagnoses Subarachnoid hemorrhage I60.9 Intracranial hemorrhage I62.9 Acute diastolic heart failure I50.31 Fatty liver disease, nonalcoholic K76.0 Acute encephalopathy G93.40 Time Spent (min) 35
[2019-10-05] MEDS: DEXMEDETOMIDINE HCL 200 MCG in SODIUM CHLORIDE 0.9% 48 ML IV SCH ×2 (11:06→13:41)
[2019-10-05 13:09] LABS: Nucleated RBC # (auto) 0.18 K/uL (0-0); Nucleated RBC % (auto) 0.7 %
[2019-10-05 13:19] LABS: Hematocrit (blood only) 35.9 % (37-47); Hemoglobin 12.3 g/dL (12.0-16.0); Mean Corpuscular Hemoglobin 29.6 pg (25-34); Mean Corpuscular Volume 86.5 fL (80-100); RDW Coefficient of Variation 16.2 % (11.5-14.5); RDW Standard Deviation 51.5 fL (36.4-46.3); Red Blood Count 4.15 M/uL (4.2-5.4); White Blood Count 24.06 K/uL (4.8-10.8)
[2019-10-05 13:20] LABS: INR 1.3 (0.9-1.1); Prothrombin Time 12.8 Seconds (9.0-12.0)
[2019-10-05 13:26] LABS: BUN Creatinine Ratio 39.7 (10-20); Calcium 8.5 mg/dl (8.5-10.1); Creatinine Clr Calc Pharmacy 46.9 ml/min; Est GFR (African American) 51.8; Est GFR (Non-African American) 44.7; Potassium 4.2 mmol/L (3.5-5.1)
--- NOTE | 2019-10-05 13:45 | Neurology Progress Note ---
Date of Service October 05, 2019 Assessment & Plan (1) Intractable back pain: 1. CT lumbar spine- chronic issues 2. CT head- sinus disease- on antibiotics repeat CT head 09/04/2019 SAH 3. limit narcotics and any sedation medication that can cause confusion and hallucinations 4. NSAIDS - as ordered 5. MRI brain and spine L/T - right sided paranasal sinusitis, L spine- pronounced severe central canal narrowing 6. orthopedics- no intervention planned- orthopedic review of MRI would be helpful 7. pain mgt for none narcotic pain mgt currently on IV steroids. gabapentin may be a good option 8. sed rate - >90 low grade fever- possible pneumonia on CXR 10/05/2019 9. CP / SOB- transferred to ICU work up for CP/SOB- no PE/DVT elevated troponins 10. hallucination not an issues at this point but still some confusion will monitor 11. SAH CT head - waiting on bed for transfer to [place]. 12. CTA head and neck if transfer is delayed with formal angio at [place] if needed. (2) Hypertension: as above (3) Hallucinations: as above (4) Subarachnoid hemorrhage: as above Supervising Physician Co-Signing Physician Notes I have seen and discussed above patient with Dr Rhina Nogueira, neurology. PT seen and examined. Events of last evening, electrical timing device calibrator reviewed. CT head x 2 and CTA. labs reviewed. On exam pt lethargic, follows no commands. spontaneously uses RUE, non-purposefully. No withdrawal to pain in bl LE. Pupils post surgical, OS>OD, reactive. No grimace to pain. Mild tachypnea, respirations regular. Reflexes more brisk on r. Query R toe upgoing. Impression: L frontal parenchymal hemorrhage with presumed secondary SAH in setting of hypertension, KS, heparin, Plavix, asa with moderate thrombocytopenia. Agree with good control of bp, reversal of heparin as has been done. Intubation, hyperventilation. No role for steroids. Upon arrival to tertiary care/neurosurgery sv likely will need repeat CT head imaging. Will likely need ct angiography. Discussed with dietist. Dre Lu is a 74 year old female who presents the ED for evaluation of back pain. She has a history of chronic back and severe scoliosis. She was in the ED on 09/27 and was given IV morphine and discharged home on p.o. [place]. Since arleth ing the [place], she is developed confusion and hallucinations. The pain is sharp, not burning, not radiating. The [place] has not been helping her back pain She had fevers and had sinus congestion about one week ago and was tested for influenza testing on 09/27 which was negative. In the ED, lumbar spine CT shows severe multilevel facet arthrosis and moderate multilevel degenerative disc disease wit hin the lumbar spine. She was given IV Benadryl, IV fentanyl, IV Toradol, IV prochlorperazine, IVF, IV Tylenol. Her daughter is in the room and states she has been having more problems with her back since she fell 2 weeks ago. It is unclear when the hallucinations started her daughter just notice them since she was given narcotics. She does not have history of confusion or hallucinations in the past. Today she states she is able to get up to the bathroom and walk in the [place] with PT. This am she had SOB and CP and transferred to ICU for observation and work up. She was answering questions appropriately yesterday but became more confused during the morning. She was started on heparin gtt by cards due to heart issues. A CT head was repeated and SAH in frontal lobe was seen. Plan per ICU team is to transfer to [place] for continuation of care. denies CP, SOB, abdominal pain, one sided weakness, numbness tingling, bowel or bladder symptoms, N, V. Physical Exam Physical Exam: Gen: very restless lungs course breath sounds CV tachy moves all extremities but not following command Results & Data Vital Signs (Past 12 Hours) Vital Signs Temp Pulse Pulse Pulse Resp BP BP 10/05/19 13:31 37.4 C 115 H 30 H 105/63 10/05/19 13:16 37.8 C H 118 H 28 H 112/64 10/05/19 13:15 37.7 C H 118 H 28 H 112/64 10/05/19 09:30 37.7 C H 121 H 141/81 H 10/05/19 09:15 120 H 137/73 10/05/19 09:00 121 H 43 H 132/72 10/05/19 08:46 131 H 36 H 154/85 H 10/05/19 08:42 129 H 36 H 10/05/19 08:09 120 H 149/80 H 10/05/19 08:00 128 H 35 H 149/80 H 10/05/19 07:45 128 H 171/95 H 10/05/19 07:31 128 H 157/97 H 10/05/19 07:30 126 H 10/05/19 07:25 134 H 22 10/05/19 07:06 125 H 26 H 10/05/19 07:00 135 H 29 H 193/113 H 10/05/19 05:58 113 H 28 H 10/05/19 05:02 124 H 147/86 H 10/05/19 04:58 153 H 189/104 H 10/05/19 03:35 37 C 110 H 22 182/94 H BP Pulse Ox 10/05/19 13:31 97 10/05/19 13:16 97 10/05/19 13:15 97 10/05/19 09:30 99 10/05/19 09:15 98 10/05/19 09:00 98 10/05/19 08:46 100 10/05/19 08:42 10/05/19 08:09 10/05/19 08:00 91 10/05/19 07:45 98 10/05/19 07:31 97 10/05/19 07:30 97 10/05/19 07:25 193/113 H 96 10/05/19 07:06 98 10/05/19 07:00 97 10/05/19 05:58 97 10/05/19 05:02 10/05/19 04:58 10/05/19 03:35 92 Laboratory Results Abnormal lab results 10/04/19 10/04/19 10/04/19 Range/Units 05:15 14:54 15:59 WBC (4.8-10.8) K/uL RBC (4.2-5.4) M/uL Hct (37-47) % RDW Std Deviation (36.4-46.3) fL RDW Coeff of Lucie (11.5-14.5) % Plt Count (130-400) K/uL Absolute Nucleated RBC (0-0) K/uL Platelet Estimate (Normal) PT (9.0-12.0) Seconds INR (0.9-1.1) APTT 72.6 H* (21.0-31.0) Seconds ABG pH (7.35-7.45) ABG pCO2 (35-46) mmHg ABG O2 Saturation (90-95) % BUN (7-18) mg/dl Creatinine (0.6-1.2) mg/dl BUN/Creatinine Ratio (10-20) Glucose (70-99) mg/dl POC Glucose (70-99) mg/dl Hemoglobin A1c 6.3 H (4.5-5.6) % Calcium (8.5-10.1) mg/dl AST (15-37) U/L Alkaline Phosphatase (45-117) U/L Troponin I 5.160 H* (0-0.045) ng/ml Albumin (3.4-5.0) gm/dl Globulin (2.5-4.0) gm/dl Albumin/Globulin Ratio (0.9-2) 10/04/19 10/04/19 10/05/19 Range/Units 20:17 22:52 06:05 WBC 26.46 H (4.8-10.8) K/uL RBC 4.15 L (4.2-5.4) M/uL Hct 36.0 L (37-47) % RDW Std Deviation 51.7 H (36.4-46.3) fL RDW Coeff of Lucie 16.2 H (11.5-14.5) % Plt Count 45 L (130-400) K/uL Absolute Nucleated RBC 0.11 H (0-0) K/uL Platelet Estimate Decreased L (Normal) PT (9.0-12.0) Seconds INR (0.9-1.1) APTT 71.2 H* (21.0-31.0) Seconds ABG pH (7.35-7.45) ABG pCO2 (35-46) mmHg ABG O2 Saturation (90-95) % BUN (7-18) mg/dl Creatinine (0.6-1.2) mg/dl BUN/Creatinine Ratio (10-20) Glucose (70-99) mg/dl POC Glucose (70-99) mg/dl Hemoglobin A1c (4.5-5.6) % Calcium (8.5-10.1) mg/dl AST (15-37) U/L Alkaline Phosphatase (45-117) U/L Troponin I 5.200 H* (0-0.045) ng/ml Albumin (3.4-5.0) gm/dl Globulin (2.5-4.0) gm/dl Albumin/Globulin Ratio (0.9-2) 10/05/19 10/05/19 10/05/19 Range/Units 06:05 06:05 06:05 WBC (4.8-10.8) K/uL RBC (4.2-5.4) M/uL Hct (37-47) % RDW Std Deviation (36.4-46.3) fL RDW Coeff of Lucie (11.5-14.5) % Plt Count (130-400) K/uL Absolute Nucleated RBC (0-0) K/uL Platelet Estimate (Normal) PT (9.0-12.0) Seconds INR (0.9-1.1) APTT 71.9 H* (21.0-31.0) Seconds ABG pH (7.35-7.45) ABG pCO2 (35-46) mmHg ABG O2 Saturation (90-95) % BUN 42 H (7-18) mg/dl Creatinine (0.6-1.2) mg/dl BUN/Creatinine Ratio 41.1 H (10-20) Glucose 158 H (70-99) mg/dl POC Glucose (70-99) mg/dl Hemoglobin A1c (4.5-5.6) % Calcium 8.2 L (8.5-10.1) mg/dl AST 132 H (15-37) U/L Alkaline Phosphatase 191 H (45-117) U/L Troponin I 4.370 H* (0-0.045) ng/ml Albumin 1.6 L (3.4-5.0) gm/dl Globulin 5.5 H (2.5-4.0) gm/dl Albumin/Globulin Ratio 0.3 L (0.9-2) 10/05/19 10/05/19 10/05/19 Range/Units 07:34 11:19 11:38 WBC (4.8-10.8) K/uL RBC (4.2-5.4) M/uL Hct (37-47) % RDW Std Deviation (36.4-46.3) fL RDW Coeff of Lucie (11.5-14.5) % Plt Count (130-400) K/uL Absolute Nucleated RBC (0-0) K/uL Platelet Estimate (Normal) PT (9.0-12.0) Seconds INR (0.9-1.1) APTT (21.0-31.0) Seconds ABG pH 7.50 H (7.35-7.45) ABG pCO2 27 L (35-46) mmHg ABG O2 Saturation 97.5 H (90-95) % BUN (7-18) mg/dl Creatinine (0.6-1.2) mg/dl BUN/Creatinine Ratio (10-20) Glucose (70-99) mg/dl POC Glucose 121 H (70-99) mg/dl Hemoglobin A1c (4.5-5.6) % Calcium (8.5-10.1) mg/dl AST (15-37) U/L Alkaline Phosphatase (45-117) U/L Troponin I 6.160 H* (0-0.045) ng/ml Albumin (3.4-5.0) gm/dl Globulin (2.5-4.0) gm/dl Albumin/Globulin Ratio (0.9-2) 10/05/19 10/05/19 10/05/19 Range/Units 13:03 13:03 13:03 WBC 24.06 H (4.8-10.8) K/uL RBC 4.15 L (4.2-5.4) M/uL Hct 35.9 L (37-47) % RDW Std Deviation 51.5 H (36.4-46.3) fL RDW Coeff of Lucie 16.2 H (11.5-14.5) % Plt Count (130-400) K/uL Absolute Nucleated RBC 0.18 H (0-0) K/uL Platelet Estimate (Normal) PT 12.8 H (9.0-12.0) Seconds INR 1.3 H (0.9-1.1) APTT (21.0-31.0) Seconds ABG pH (7.35-7.45) ABG pCO2 (35-46) mmHg ABG O2 Saturation (90-95) % BUN 48 H (7-18) mg/dl Creatinine 1.21 H (0.6-1.2) mg/dl BUN/Creatinine Ratio 39.7 H (10-20) Glucose 121 H (70-99) mg/dl POC Glucose (70-99) mg/dl Hemoglobin A1c (4.5-5.6) % Calcium (8.5-10.1) mg/dl AST (15-37) U/L Alkaline Phosphatase (45-117) U/L Troponin I (0-0.045) ng/ml Albumin (3.4-5.0) gm/dl Globulin (2.5-4.0) gm/dl Albumin/Globulin Ratio (0.9-2) Diagnostic Findings CXR- Progression of interstitial thickening consistent with interstitial pulmonary edema. Right lung airspace opacities favor alveolar edema although superimposed pneumonia could appear similar. Trace bilateral pleural effusions. CXR- . No change in the moderate asymmetric pulmonary edema. Trace bilateral pleural effusions persist. Right medial lung base airspace opacity could be due to the pulmonary edema or a pneumonia. CT head- Suboptimal study due to motion artifact. 2. Small focal areas of intraparenchymal/subarachnoid hemorrhage within the left frontal lobe near the high convexity. These findings were discussed with Dr. Pascal at 9:10 AM on 10/05/2019.
--- NOTE | 2019-10-05 13:53 | Electrocardiogram Report ---
Test Reason : Blood Pressure : / mmHG Vent. Rate : 106 BPM Atrial Rate : 106 BPM P-R Int : 156 ms QRS Dur : 084 ms QT Int : 326 ms P-R-T Axes : 058 043 040 degrees QTc Int : 433 ms Sinus tachycardia Possible Left atrial enlargement Poor R wave progression, consider anterior [place] vs. lead placement vs. LVH Abnormal ECG When compared with ECG of 04-OCT-2019 10:54, No significant change was found Confirmed by Adryan Hamilton ([id number]) on 10/05/2019 1:52:51 PM Referred By: REFERRED SELF Confirmed By:Adryan Hamilton
--- NOTE | 2019-10-05 14:11 | Electrocardiogram Report ---
Test Reason : Blood Pressure : / mmHG Vent. Rate : 154 BPM Atrial Rate : 154 BPM P-R Int : 140 ms QRS Dur : 078 ms QT Int : 240 ms P-R-T Axes : 057 029 020 degrees QTc Int : 384 ms Sinus tachycardia with Premature atrial complexes with Premature ventricular complexes Anterior infarct (cited on or before 05-OCT-2019) Abnormal ECG When compared with ECG of 05-OCT-2019 00:16, (unconfirmed) No significant change Confirmed by Adryan Hamilton ([id number]) on 10/05/2019 2:11:00 PM Referred By: REFERRED SELF Confirmed By:Adryan Hamilton
[2019-10-05 14:22] LABS: Basophils # (auto) 0.06 K/uL (0-0.2); Basophils % (auto) 0.2 %; Immature Granulocytes # (auto) 0.63 K/uL (0.00-0.02); Immature Granulocytes % (auto) 2.6 %; Lymphocytes # (auto) 1.06 K/uL (1.2-3.4); Lymphocytes % (auto) 4.4 %; Mean Corpuscular Hgb Conc 34.3 g/dL (32-36); Monocytes # (auto) 0.71 K/uL (0.11-0.59); Neutrophils % (auto) 89.8 %; Platelet Count 39 K/uL (130-400); Platelet Estimate SIGNIFIC DECREASED (Normal); Toxic Granulation 3+; Toxic Vacuolation 2+
[2019-10-05] MEDS ORDERED: OPTIRAY 320 125ml IV PRN (14:34)
[2019-10-05] MEDS ORDERED: LABETALOL HCL IV 5 MG/ML 20ML IV ONE ×2 (14:51→14:53)
[2019-10-05] MEDS ORDERED: FUROSEMIDE 40 MG/4 ML VIAL IV ONE ×2 (14:52→14:53)
--- NOTE | 2019-10-05 14:54 | CT Scan Report ---
CT ANGIOGRAM OF THE BRAIN COMBO CLINICAL HISTORY: Subarachnoid hemorrhage. COMPARISON STUDY: Unenhanced CT of the brain performed the same day 10/05/2019. TECHNIQUE: Unenhanced axial CT scan of the brain is performed. Subsequently, following the IV adminis tration of 119 cc of Optiray 320, CT angiogram of the brain was performed from the skull base to the vertex. Images are reviewed in the axial, sagittal, and coronal planes. 3-D MIPS images are created a nd assessed. IV contrast was administered without complication. A dose lowering technique was utiliz ed adhering to the principles of ALARA. The examination is compromised by motion artifact. CT DOSE: 1250.69 mGy.cm FINDINGS: Brain parenchyma: There is 11 mm parenchymal hemorrhage identified within the left frontal white drew er. Subarachnoid hemorrhage is again seen along several of the left frontal parietal sulci. Hemorrhag e at these sites has increased from today's earlier examination. There is no midline shift or evidenc e of acute territorial ischemia by CT criteria. There is minimal subcortical and periventricular micr oangiopathic disease. There is no evidence of enhancing mass lesion on the angiogram phase images. No extra-axial fluid collection is seen. [place]-white matter differentiation is preserved. Ventricles, sulci, and cisterns: Normal in configuration. No intraventricular blood is identified. CT angiogram of the brain: Mild atherosclerotic calcification is noted in the carotid bulbs. The inte rnal carotid arteries are widely patent, as are the anterior and middle cerebral arteries. The verteb robasilar system and posterior cerebral arteries are widely patent. The vertebral arteries are codomi nant. There is no aneurysm, high-grade stenosis, or focal vessel cutoff identified throughout the int racranial circulation. Dural sinuses: Clear as visualized. Orbits: The bony orbits are intact. The orbital contents are normal as visualized. Sinuses and mastoids: There is subtotal opacification of a right posterior ethmoid sinus. Fluid is al so seen within the right frontal sinus. The remaining visualized paranasal sinuses are clear. The mas toid air cells are well pneumatized. Calvarium: The skeletal structures are osteopenic. No depressed calvarial fracture is seen. IMPRESSION: 1. A small parenchymal hemorrhage within the left frontal lobe white matter and subarachnoid hemorrha ge along the high left convexity have increased from today's earlier examination. 2. There is no midline shift or evidence of acute territorial ischemia by CT criteria. 3. Unremarkable CT angiogram of the brain. ACT 112: Negative or not required by law. Electronically signed by: Tato Jose M.D. 10/05/2019 2:53 PM
[2019-10-05 15:50] LABS: Nucleated RBC # (auto) 0.18 K/uL (0-0); Nucleated RBC % (auto) 0.7 %
[2019-10-05 15:51] LABS: Hematocrit (blood only) 31.7 % (37-47); Hemoglobin 11.1 g/dL (12.0-16.0); Mean Corpuscular Hemoglobin 29.7 pg (25-34); Mean Corpuscular Volume 84.8 fL (80-100); Mean Platelet Volume 11.3 fL (7.4-10.4); Platelet Count 67 K/uL (130-400); RDW Coefficient of Variation 16.1 % (11.5-14.5); RDW Standard Deviation 50.2 fL (36.4-46.3); Red Blood Count 3.74 M/uL (4.2-5.4); White Blood Count 26.02 K/uL (4.8-10.8)
[2019-10-05] MEDS ORDERED: SODIUM CHLORIDE 0.9% 250 ML IV PRN (15:59)
[2019-10-05 16:02] LABS: Calcium 8.1 mg/dl (8.5-10.1); Est GFR (African American) 49.3; Est GFR (Non-African American) 42.5; Potassium 4.3 mmol/L (3.5-5.1)
--- NOTE | 2019-10-05 16:14 | XRay Report ---
XR chest 1V portable CLINICAL HISTORY: 74 years-old Female presenting with hypoxia, ams. TECHNIQUE: Portable upright AP view of the chest was obtained. COMPARISON: 10/05/2019. FINDINGS: Atherosclerosis of the aortic arch. Cardiac silhouette mildly enlarged. Pulmonary vascular prominence . Bilateral hilar prominence is likely vascular. This is overall slightly decreased in severity from prior exam. Persistent though decreased interstitial prominence. Bibasilar added density remains thou gh decreased from prior. No large effusion or pneumothorax. Degenerative changes of the thoracic spin e. Upper abdomen normal. IMPRESSION: 1. Interval decrease in volume overload, congestive change, and now mild pulmonary edema in the sett ing of mild cardiomegaly. ACT 112: Negative or not required by law. Electronically signed by: Miguel Frost M.D. 10/05/2019 4:13 PM
[2019-10-05] MEDS ORDERED: ACETAMINOPHEN 1,000 MG/100 ML VIAL IV PRN (16:15)
[2019-10-05] MEDS ORDERED: RAPID SEQUENCE INDUCTION BAG ONE (16:57)
--- NOTE | 2019-10-05 17:01 | Communication Note ---
Date of Service: October 05, 2019 Since the morning the patient's mental status is continued to deteriorate. I did send her for stat CTA of her head which demonstrated a small parenchymal hemorrhage within the left frontal lobe and a subarachnoid hemorrhage along the high left convexity which has increased from the previous CT early in the morning. She had significant respiratory distress after coming back from the CT scanner. We gave her 10 mg of labetalol as her systolic blood pressure was in the 190s. We also started her on BiPAP and gave her a dose of IV Lasix with improvement in respiratory status. We obtain a blood gas which is showing respiratory alkalosis and hypoxemia. She continues to have deterioration in her mental status and is now minimally responsive. I did discuss all of these findings with the family and we are going to emergently intubate her. We also discussed transfer to a tertiary care center. At this time the family is uncertain whether they would like to transfer the patient to [facility] in [place]. We have contacted Inga in [facility] as well, but they do not have any readily available beds at the moment. We are transfusing her another pool of platelets given that her platelet count is 67,000. Her INR is 1.3 currently. Her sodium at 3:23 PM is 137. Creatinine is 1.26. BUN is 52. CRITICAL CARE TIME - I have personally spent 35 minutes of critical care time in the direct management of this patient. This is a life/limb threatening event. This includes time spent evaluating patient, direct bedside care, chart review, placing orders, interpretation of diagnostic studies, discussion with consultants, patient, and family members, as well as other required patient management activities. This time is exclusive of all separately billable procedures, and teaching time and separate from and in addition to any other critical care service time. Coding Level of Care Code 60699 Prolonged Care (int'l) Time Spent (min) 35
[2019-10-05 17:28] LABS: BUN Creatinine Ratio 38.5 (10-20); Calcium 8.2 mg/dl (8.5-10.1); Est GFR (African American) 45.3; Est GFR (Non-African American) 39.1; Potassium 4.4 mmol/L (3.5-5.1)
[2019-10-05] MEDS ORDERED: fentaNYL citrate 100 MCG/2 ML VIAL IV PRN (17:50)
[2019-10-05] MEDS ORDERED: fentaNYL DRIP 1,250 MCG/250 ML BAG IV SCH (17:50)
[2019-10-05] MEDS ORDERED: PHENYLEPHRINE HCL 20 MG in DEXTROSE 5% 500 ML IV SCH (17:50)
--- NOTE | 2019-10-05 17:54 | Procedure Note ---
Procedure Note Date of Service October 05, 2019 Note INTUBATION PROCEDURE NOTE: Dr. Favian Charles A time-out was completed verifying correct patient, procedure, site, positioning. Patient was evaluated and required intubation for respiratory failure and altered mental status. Sedative agent used: 20 mg of etomidate and 50 mcg of fentanyl Paralysis agent used: 50 mg of rocuronium Consent signed and placed on chart. Number of attempts: 2 Grade view: Not applicable as this was a video laryngoscope The patient was prepared in the appropriate fashion. Sedation was achieved utilizing 20 mg of etomidate and 50 mcg of fentanyl. The patient was easily ventilated using [id number] to achieve adequate oxygenation. A 7-1/2 [place] endotracheal tube was placed under 22 cm at the lip. The stylette was removed and balloon was inflated with 10mL of air. Appropriate Colorimetric change was appreciated. Bilateral breath sounds were heard without air sounds in the abdomen. Post Intubation Chest X-ray ordered Patient tolerated the procedure well and there were no immediate complications. Coding CPT Codes Resuscitation - Resuscitation: 45862 Endotracheal Intubation, emergency ([id number]) [facility] [place] Codes (Charges) Resuscitation Resuscitation: 84309 Endotracheal Intubation, emergency
[2019-10-05] MEDS ORDERED: VANCOMYCIN HCL 2,000 MG in SODIUM CHLORIDE 0.9% 500 ML IV ONE (17:55)
[2019-10-05] MEDS ORDERED: CEFEPIME 1,000 MG in SYRINGE 0 ML IV STA (17:55)
[2019-10-05] MEDS ORDERED: VANCOMYCIN CONSULT ACTIVE PRN (17:55)
[2019-10-05] MEDS ORDERED: Nursing to Pharmacy Communication ONE (18:16)
--- NOTE | 2019-10-05 18:21 | XRay Report ---
XR chest 1V portable CLINICAL HISTORY: 74 years-old Female presenting with s/p intubation. TECHNIQUE: Portable upright AP view of the chest was obtained. COMPARISON: 10/05/2019. FINDINGS: Endotracheal tube has been placed and terminates in the mid to upper thoracic trachea 4.5 cm from the becca. Numerous external leads overlie the image degrading quality. Atherosclerosis of the aortic a rch and cardiac silhouette moderately enlarged. Pulmonary vascular prominence and interstitial promin ence. Right greater than left bibasilar opacities and small effusions. These findings have increased from prior. No pneumothorax. Degenerative changes of the thoracic spine. Round opacity in the epigast rium may relate to a gastrostomy tube. IMPRESSION: 1. Appropriately positioned endotracheal tube. 2. Cardiomegaly with slightly worsened moderate pulmonary edema, volume overload, congestive change. ACT 112: Negative or not required by law. Electronically signed by: Miguel Frost M.D. 10/05/2019 6:19 PM
[2019-10-06 11:51] LABS: iSTAT Hematocrit 31 % (37-47); iSTAT Hemoglobin 10.5 g/dl (12.0-16.0); iSTAT Potassium 4.4 mmol/L (3.3-5.0); iSTAT Sodium 136 mmol/L (135-144)
[2019-10-06 11:52] LABS: iSTAT Allen Test Acceptable; iSTAT Arterial Blood Gas HCO3 27 meg/L (19-24); iSTAT Arterial Blood Gas pCO2 35 mmHg (35-46); iSTAT Arterial Blood Gas pO2 386 mmHg (80-95); iSTAT Carbon Dioxide 28 mmol/L (24-31); iSTAT FiO2 100 %; iSTAT Sample Type Arterial
[2019-10-06 11:53] LABS: iSTAT Site R Radial
[2019-10-06 11:54] LABS: iSTAT SpO2 98
== END 2019-10-05 18:45 | disposition short-term general hospital (02) | DRG 551 ==
LOC: 3N 12:06 → ED 12:06 → SUATTDRO 16:09 → 3N 18:13 → SUATTDRO 10-01 14:53 → 1E 10-04 09:45